=== PATIENT | male | born 1930 | race Caucasian/White ===

== ENCOUNTER 2016-04-02 15:20 | Inpatient (IN) | payer OTHER, BC ==
[~2016-04-02] VITALS: Ht 177.8 cm; Wt 77.1 kg
[~2016-04-02 15:20] MED LIST: EPLE50TA3 PO; GLIP10TA10 PO; IBUP600T44 PO; LEVO75TA PO; LISI10TA PO; SITA100T3 PO
[2016-04-02] MEDS ORDERED: LSX20 PO (15:56)
[2016-04-02] MEDS ORDERED: VNTHFA/IN PO (15:56)
[2016-04-02] MEDS ORDERED: MIRA100T PO (15:56)
[2016-04-02] MEDS ORDERED: MISCCAP80 PO (15:56)
[2016-04-02] MEDS ORDERED: SENNTAB23 PO (15:56)
[2016-04-02] MEDS ORDERED: TAPE50TA PO (15:56)
[2016-04-02] MEDS ORDERED: GLC500 PO (15:56)
[2016-04-02] MEDS ORDERED: ASPI81TA28 PO (15:56)
[2016-04-02 16:19] LABS: BASO % 0.3 %; BASO ABS # 0.04 K/uL (0-0.2); COMPLETE YES; EOS % 0.9 %; HEMATOCRIT 44.3 % (42-52); IG% 0.4 %; LYMPH % 14.5 %; LYMPH ABS # 1.69 K/uL (1.2-3.4); MEAN CELL VOLUME 95.5 fL (80-100); MEAN CORPUSCULAR HEMOGLOBIN 31.7 pg (25-34); MEAN CORPUSCULAR HGB CONC 33.2 g/dl (32-36); MEAN PLATELET VOLUME 10.3 fL (7.4-10.4); MONO % 10.8 %; NEUT % 73.1 %; PLATELET COUNT 349 K/uL (130-400); RED BLOOD COUNT 4.64 M/uL (4.7-6.1); WHITE BLOOD COUNT 11.66 K/uL (4.8-10.8)
--- NOTE | 2016-04-02 16:20 | DIAGNOSTIC IMAGING REPORT ---
CHEST ONE VIEW PORTABLE CLINICAL HISTORY: Shortness of breath, pneumonia, weakness. COMPARISON STUDY: No previous studies for comparison. FINDINGS: The heart is mildly enlarged. There is diffuse coarsening of interstitial markings with septal lines consistent with mild interstitial edema. There is a right perihilar opacity. This could be atelectatic inflammatory or neoplastic. Clinical and radiographic follow-up is recommended. There are advanced arthritic changes in the right shoulder.[ IMPRESSION: 1. Cardiomegaly and radiographic evidence of congestive failure 2. Abnormal increased density of the right hilum. This could be atelectatic, an inflammatory or neoplastic. Clinical and radiographic follow-up is recommended. Electronically signed by: Sunil Preciado M.D. 04/02/2016 4:18 PM
[2016-04-02 16:28] LABS: BUN/CREATININE RATIO 13.8 (10-20); CALCIUM 8.8 mg/dl (8.5-10.1); CREATININE 0.98 mg/dl (0.60-1.40); MAGNESIUM 1.7 mg/dl (1.8-2.4); POTASSIUM 4.3 mmol/L (3.5-5.1)
[2016-04-02] MEDS ORDERED: ACETAMINOPHEN 500 MG TAB PO STA (16:33)
[2016-04-02] MEDS ORDERED: OPTIRAY 320 IV PRN (16:45)
[2016-04-02 16:47] LABS: CKMB/CK RATIO 2.7 (0-3.0)
[2016-04-02 16:55] LABS: C-REACTIVE PROTEIN 3.45 mg/dl (0-0.29)
[2016-04-02] MEDS ORDERED: PIPERACILLIN/TAZOBACTAM 4.5 GM/100ML D5W IV STA (17:52)
--- NOTE | 2016-04-02 17:55 | DIAGNOSTIC IMAGING REPORT ---
CT ANGIOGRAM OF THE CHEST CLINICAL HISTORY: Chest pain, shortness of breath. Abnormal chest x-ray. Possible pulmonary embolism. COMPARISON STUDY: Chest x-ray dated 04/02/2016 TECHNIQUE: Following the IV administration of 92 mL of Optiray-320, CT angiogram of the thorax was performed from the thoracic inlet to the lung bases utilizing the pulmonary embolus protocol. Images are reviewed in the axial, sagittal, and coronal planes. IV contrast was administered without complication. MIP imaging was performed. CT DOSE: 642.89 mGy.cm FINDINGS: There is cholelithiasis. There are mildly enlarged mediastinal lymph nodes. Hilar lymph nodes are the upper limits of normal in size. There is no axillary lymphadenopathy. There was no evidence of thoracic aortic dilatation. Heart is enlarged. There are coronary artery calcifications. The examination is limited due to respiratory motion artifact. There are no central pulmonary artery filling defects to indicate acute emboli.. There are small bilateral pleural effusions There is pulmonary emphysema. There are multifocal nodular airspace opacities, statistically representing a multifocal pneumonia. Imaging subsequent to antibiotic therapy is recommended. There are advanced arthritic changes within the shoulders right greater than left IMPRESSION: 1. Technically limited study secondary to motion artifact 2. No central pulmonary emboli identified 3. Multifocal bilateral nodular airspace opacities, likely infectious/inflammatory. Given the peripheral nature of the pulmonary abnormalities, the sequela of septic emboli cannot be excluded with certainty. Short-term Imaging follow-up is recommended 4. Cholelithiasis 5. Small bilateral pleural effusions 6. Mild mediastinal lymphadenopathy Electronically signed by: Sunil Preciado M.D. 04/02/2016 5:53 PM
[2016-04-02] MEDS ORDERED: SODIUM CHLORIDE 0.9% 500ML 500 ML IV STA (17:58)
[2016-04-02] MEDS ORDERED: VANCOMYCIN 1GM/270ML NSS IV STA (18:07)
--- NOTE | 2016-04-02 18:37 | EMERGENCY ROOM VISIT NOTE ---
History Report prepared by Cesilia: Shashank Amaro Under the Supervision of: Dr. Oneal Epps M.D. First contact with patient: 15:41 Chief Complaint: RESPIRATORY PROBLEMS Stated Complaint: PNEUMONIA,WEAKNESS, VERY SICK Nursing Triage Summary: Short of breath on movement, recently diagnosed at [facility] with pneumonia and had a course of ABX with no improvement per daughter. Pt c/o back pain, but states it is a chronic pain. Denies CP. History of Present Illness The patient is a 85 year old male who presents to the Emergency Room with complaints of constant generalized weakness beginning last week. He has associated shortness of breath and legs swelling. He denies any headaches, passing out, chest pain, abdominal pain, or vomiting. The patient was seen for similar symptoms in the [place] ED recently, and was found to have pneumonia by x-ray. He was placed on antibiotics for five days. He was then seen by his guide dog trainer two days ago, and is now scheduled to have an echocardiogram in two weeks. The patient was started on Lasix at this time, but nothing has improved his symptoms. He is not on any blood thinners. He states that his Access Clerk thought he may have CHF. Source of History: patient Onset: Last week Position: other (generalized) Quality: other (weakness) Timing: constant Associated Symptoms: + SOB, No abdominal pain, No chest pain, No headache, No vomiting Note: The patient has associated leg swelling. He denies passing out. Review of Systems See HPI for pertinent positives & negatives. A total of 10 systems reviewed and were otherwise negative. Past Medical & Surgical Medical Problems: (1) Diabetes Family History Cancer Diabetes mellitus Heart disease Social History Smoking Status: Former Smoker Alcohol Use: none Drug Use: none Housing Status: lives alone Occupation Status: retired Current/Historical Medications Scheduled Aspirin (Aspirin Ec), 81 MG PO DAILY Furosemide (Furosemide), 20 MG PO DAILY Glipizide (Glipizide), 10 MG PO BID Ibuprofen (Motrin), 300 MG PO DAILY Levothyroxine Sodium (Synthroid), 75 MCG PO DAILY Lisinopril (Prinivil), 10 MG PO DAILY Metformin HCl (Metformin HCl), 500 MG PO BID Probiotic Product (Probiotic), 1 CAP PO BID Tapentadol Hcl (Nucynta), 50 MG PO DAILY Scheduled PRN Albuterol Hfa (Ventolin Hfa), 2 PUFFS PO Q4 PRN for SOB/Wheezing Sennosides-Docusate Sodium (Stool Softener), 1 TAB PO DAILY PRN for Constipation Allergies Coded Allergies: No Known Allergies (Unverified , 04/02/16) Physical Exam Vital Signs Date Time Temp Pulse Resp B/P Pulse Ox O2 Delivery O2 Flow Rate FiO2 04/02/16 17:23 172/105 95 Room Air 04/02/16 16:19 132 04/02/16 15:31 96 Room Air 04/02/16 15:28 37.4 85 22 153/99 96 Room Air Physical Exam GENERAL: Patient is ill appearing and in moderate distress. HEENT: No acute trauma, normocephalic atraumatic, mucous membranes moist, no nasal congestion, no scleral icterus. NECK: No stridor, no adenopathy, no meningismus, trachea is midline. LUNGS: Dyspneic, Diffuse crackles in all lung ervin. HEART: Regular rate and rhythm. No murmurs, rubs, gallops appreciated. ABDOMEN: Soft, nontender, bowel sounds positive, no masses appreciated, no peritonitis. BACK: No midline tenderness, no CVA tenderness EXTREMITIES: Normal motion all extremities, no cyanosis. Edema noted to the bilateral lower ankles. NEUROLOGIC: Alert and oriented, no acute motor or sensory deficits, no focal weakness, cranial nerves grossly intact. SKIN: No rash, no jaundice, no diaphoresis. Medical Decision & Procedures ER Provider Diagnostic Interpretation: X ray results and stated below per my interpretation and radiologist interpretation. Other radiology results and stated below per my review and radiologist interpretation: CHEST ONE VIEW PORTABLE FINDINGS: The heart is mildly enlarged. There is diffuse coarsening of interstitial markings with septal lines consistent with mild interstitial edema. There is a right perihilar opacity. This could be atelectatic inflammatory or neoplastic. Clinical and radiographic follow-up is recommended. There are advanced arthritic changes in the right shoulder.[ IMPRESSION: 1. Cardiomegaly and radiographic evidence of congestive failure 2. Abnormal increased density of the right hilum. This could be atelectatic, an inflammatory or neoplastic. Clinical and radiographic follow-up is recommended. Electronically signed by: Sunil Preciado M.D. CT ANGIOGRAM OF THE CHEST FINDINGS: There is cholelithiasis. There are mildly enlarged mediastinal lymph nodes. Hilar lymph nodes are the upper limits of normal in size. There is no axillary lymphadenopathy. There was no evidence of thoracic aortic dilatation. Heart is enlarged. There are coronary artery calcifications. The examination is limited due to respiratory motion artifact. There are no central pulmonary artery filling defects to indicate acute emboli.. There are small bilateral pleural effusions There is pulmonary emphysema. There are multifocal nodular airspace opacities, statistically representing a multifocal pneumonia. Imaging subsequent to antibiotic therapy is recommended. There are advanced arthritic changes within the shoulders right greater than left IMPRESSION: 1. Technically limited study secondary to motion artifact 2. No central pulmonary emboli identified 3. Multifocal bilateral nodular airspace opacities, likely infectious/inflammatory. Given the peripheral nature of the pulmonary abnormalities, the sequela of septic emboli cannot be excluded with certainty. Short-term Imaging follow-up is recommended 4. Cholelithiasis 5. Small bilateral pleural effusions 6. Mild mediastinal lymphadenopathy Electronically signed by: Sunil Preciado M.D. Laboratory Results 04/02/16 16:00 Red Blood Count 4.64, Mean Corpuscular Volume 95.5, Mean Corpuscular Hemoglobin 31.7, Mean Corpuscular Hemoglobin Concent 33.2, Mean Platelet Volume 10.3, Neutrophils (%) (Auto) 73.1, Lymphocytes (%) (Auto) 14.5, Monocytes (%) (Auto) 10.8, Eosinophils (%) (Auto) 0.9, Basophils (%) (Auto) 0.3, Neutrophils # (Auto ) 8.52, Lymphocytes # (Auto) 1.69, Monocytes # (Auto) 1.26, Eosinophils # (Auto ) 0.10, Basophils # (Auto) 0.04 04/02/16 16:00 Test 04/02/16 16:00 04/02/16 16:44 White Blood Count 11.66 K/uL (4.8-10.8) Red Blood Count 4.64 M/uL (4.7-6.1) Hemoglobin 14.7 g/dL (14.0-18.0) Hematocrit 44.3 % (42-52) Mean Corpuscular Volume 95.5 fL (80-100) Mean Corpuscular Hemoglobin 31.7 pg (25-34) Mean Corpuscular Hemoglobin Concent 33.2 g/dl (32-36) Platelet Count 349 K/uL (130-400) Mean Platelet Volume 10.3 fL (7.4-10.4) Neutrophils (%) (Auto) 73.1 % Lymphocytes (%) (Auto) 14.5 % Monocytes (%) (Auto) 10.8 % Eosinophils (%) (Auto) 0.9 % Basophils (%) (Auto) 0.3 % Neutrophils # (Auto) 8.52 K/uL (1.4-6.5) Lymphocytes # (Auto) 1.69 K/uL (1.2-3.4) Monocytes # (Auto) 1.26 K/uL (0.11-0.59) Eosinophils # (Auto) 0.10 K/uL (0-0.5) Basophils # (Auto) 0.04 K/uL (0-0.2) RDW Standard Deviation 48.6 fL (36.4-46.3) RDW Coefficient of Variation 13.9 % (11.5-14.5) Immature Granulocyte % (Auto) 0.4 % Immature Granulocyte # (Auto) 0.05 K/uL (0.00-0.02) Anion Gap 10.0 mmol/L (3-11) Est Creatinine Clear Calc Drug Dose 55.9 ml/min Estimated GFR () 80.6 Estimated GFR (Non- 69.5 BUN/Creatinine Ratio 13.8 (10-20) Calcium Level 8.8 mg/dl (8.5-10.1) Magnesium Level 1.7 mg/dl (1.8-2.4) Total Creatine Kinase 98 U/L (39-308) Creatine Kinase MB 2.6 ng/ml (0.5-3.6) Creatine Kinase MB Ratio 2.7 (0-3.0) Troponin I 0.122 ng/ml (0-0.045) C-Reactive Protein 3.45 mg/dl (0-0.29) Pro-B-Type Natriuretic Peptide 8962 pg/ml (0-1800) Bedside Lactic Acid Venous 1.45 mmol/L (0.90-1.70) Laboratory results as reviewed by me. Medications Administered Medications (Trade) Dose Ordered Sig/Ricky Route Start Time Stop Time Status Last Admin Dose Admin Acetaminophen (Tylenol Tab) 1,000 mg NOW STAT PO 04/02/16 16:33 04/02/16 16:34 DC 04/02/16 16:33 1,000 MG Piperacillin Sod/ Tazobactam Sod 4.5 gm 4.5 gm NOW STAT IV 04/02/16 17:52 04/02/16 17:54 DC 04/02/16 18:20 4.5 GM Sodium Chloride (Nss 500ml) 500 ml @ 999 mls/hr Q31M STAT IV 04/02/16 17:58 04/02/16 18:28 DC 04/02/16 18:20 999 MLS/HR Vancomycin HCl (Vancomycin 1gm/ 270ml Nss) 1 gm NOW STAT IV 04/02/16 18:07 04/02/16 18:08 DC 04/02/16 18:47 1 GM ECG Indication: SOB/dyspnea Rate (beats per minute): 131 Rhythm: sinus tachycardia Findings: PAC, ST depression (Non-specific) ED Course 1541: The patient was evaluated in room B2. A complete history and physical exam was performed. 1633: Ordered Tylenol Tab 1000 mg PO. 1752: Ordered Zosyn 4.5 gm IV. 1758: Ordered NSS 500 mL @ 999 mL/hr IV. 1807: I reassessed the patient. He is feeling better. Ordered Vancomycin HCl 1 gm IV. 1815: Upon reevaluation, the patient is resting comfortably. Discussed results and treatment plan with the patient. He verbalized understanding and agreement with the treatment plan. The patient will be evaluated for further management. 1900: I checked in on the patient. His heart rate is down to the 110's. Dr. Flores is at bedside. Medical Decision Differential: Sepsis, Infectious (UTI/Pneumonia/Meningitis/etc), Metabolic/ Electrolyte Abnormality, Cardiac, Hepatic, Endocrine, Toxicologic, Neurologic, amongst other pathologies entertained. 85 yr old male brought in with daughter for evaluation of SOB. Seems like there has been quite some focus on CHF being cause of shob and leg swelling, though did have round of Levaquin over last week. Did not improve with this and has continued to become more dyspneic and weak. Initial eval patient with normal HR though breathing issues. Agree with fluid overload but then patient became tachycardic and found to be febrile. Given Tylenol and sent to CT as quite abnormal CXR. CT with likely bilateral infiltrates. On return still somewhat tachycardic thus tried fluid challenge with knowledge that if HR may worsen SHOB. 500ml bolus given and he did have improvement in HR to 110s. Disussed with hospitalist who will continue gentle fluid resus as inpatient as unclear his EF. I did opt to give broad spectrum abx as already failed levaquin. Furthermore he has elevated Trop which is more likely sepsis related though MN or acute CHF will need to be ruled out. Consults Time Called: 1755 Consulting Physician: Dr. Mark Gotti Returned Call: [phone] Discussed the patient's case. The patient will be evaluated for further treatment and disposition. Impression Primary Impression: Sepsis Additional Impressions: Pneumonia, Heart failure, Elevated troponin Critical Care I have personally spent greater than 35 minutes of critical care time in the direct management of this patient. This was a life/limb threatening event. This includes time spent evaluating patient, direct bedside care, chart review, placing orders, interpretation of diagnostic studies, discussion with consultants, patient, and family members, as well as other required patient management activities. This 35 minutes is in excess of all separately billable procedures. Scribe Attestation The scribe's documentation has been prepared under my direction and personally reviewed by me in its entirety. I confirm that the note above accurately reflects all work, treatment, procedures, and medical decision making performed by me. Departure Information Dispostion Being Evaluated By Hospitalist Referrals Parminder Nava M.D. (PCP) Patient Instructions A Signature Page, My [facility]
[2016-04-02] MEDS ORDERED: SODIUM CHLORIDE 0.9% 1000ML 1,000 ML IV SCH (19:22)
[2016-04-02] MEDS ORDERED: GLUCAGON FOR INJ 1 MG VIAL SQ PRN (19:30)
[2016-04-02] MEDS ORDERED: NITROGLYCERIN 0.4 MG SL PER TAB CHARGE SL PRN (19:30)
[2016-04-02] MEDS ORDERED: DEXTROSE 50% 50 ML SYR IV PRN (19:30)
[2016-04-02] MEDS ORDERED: MoRPHine SULFATE 2 MG/ML CARP IV PRN (19:30)
[2016-04-02] MEDS ORDERED: GLUCOSE 10 TABS/TUBE PO PRN (19:30)
[2016-04-02] MEDS ORDERED: ONDANSETRON INJ 2 MG/ML 2 ML VIAL IV PRN (19:30)
[2016-04-02] MEDS ORDERED: GLUCOSE 40% GEL 15 GM TUBE PO PRN (19:30)
[2016-04-02] MEDS ORDERED: DC ALL PREVIOUSLY ORDERED DIABETES MEDS ONE (19:30)
[2016-04-02] MEDS ORDERED: PNEUMOCOCCAL POLYSACCHARIDES 25 MCG/0.5 ML VIAL/SYR IM. ONE (19:45)
[2016-04-02] MEDS ORDERED: INFLUENZA VIRUS QUAD VACCINE 0.5 ML SYR IM. ONE (19:45)
[2016-04-02 20:14] LABS: INR 1.2 (0.9-1.1); PROTHROMBIN TIME (PATIENT) 12.7 SECONDS (9.0-12.0)
[2016-04-02] MEDS ORDERED: SODIUM CHLORIDE 0.9% 500ML 500 ML IV SCH (20:15)
--- NOTE | 2016-04-02 20:16 | History and Physical ---
History & Physical Date & Time of Service: Apr 02, 2016 at 19:48 Chief Complaint: Pneumonia,Weakness, Very Sick Primary Care Physician: Parminder Nava M.D. History of Present Illness Source: patient 85 yo M presented to the ER with complaints of shortness of breath and decreased exercise tolerance for the last few months, worse in the last week. Specifically, he has not been able to climb his basement stairs or walk far in the grocery store without stopping to catch his breath. ROS reveals coughing, + orthopnea and +PND and recent acute feet swelling. He denies headache, nausea, abdominal pain, vomiting, sore throat, recent travel, diarrhea, fever, chills. He states that his granddaughter was sick over the holidays. He was seen at [facility] a week ago for this and was told he had an elevated troponin but that this was nothing to worry about. He was then seen by a Cardiology PA with [facility] who started him on a small dose of Lasix, which he has taken for the past three days, and ordered an TTE and an EKG. These records are not available to me to verify results. Past Medical/Surgical History Medical Problems: (1) Abdominal aortic aneurysm (AAA) 3.0 cm to 5.5 cm in diameter in male Status: Chronic (2) Bladder cancer Status: Chronic (3) Chronic back pain Status: Chronic (4) Chronic lower back pain Status: Chronic (5) Diabetes Status: Chronic (6) Diabetic retinopathy Status: Chronic (7) Hypertension Status: Chronic (8) Hypothyroidism Status: Chronic (9) Osteoarthritis, shoulder Status: Chronic (10) Prostate cancer Status: Chronic Family History Cancer Diabetes mellitus Heart disease Social History Smoking Status: Former Smoker Alcohol Use: socially Drug Use: none Marital Status: other Housing status: lives alone Occupational Status: retired Immunizations History of Influenza Vaccine: Unknown History of Tetanus Vaccine?: Unknown History of Pneumococcal: Unknown History of Hepatitis B Vaccine: Unknown Multi-Drug Resistant Organisms History of MDRO: No Allergies Coded Allergies: No Known Allergies (Unverified , 04/02/16) Home Medications Scheduled Aspirin (Aspirin Ec), 81 MG PO DAILY Furosemide (Furosemide), 20 MG PO DAILY Glipizide (Glipizide), 10 MG PO BID Ibuprofen (Motrin), 300 MG PO DAILY Levothyroxine Sodium (Synthroid), 75 MCG PO DAILY Lisinopril (Prinivil), 10 MG PO DAILY Metformin HCl (Metformin HCl), 500 MG PO BID Probiotic Product (Probiotic), 1 CAP PO BID Tapentadol Hcl (Nucynta), 50 MG PO DAILY Scheduled PRN Albuterol Hfa (Ventolin Hfa), 2 PUFFS PO Q4 PRN for SOB/Wheezing Sennosides-Docusate Sodium (Stool Softener), 1 TAB PO DAILY PRN for Constipation Review of Systems Constitutional: No chills, No fever, No sweats Eyes: No problem reported ENT: + nasal symptoms (runny nose last 24 hours), No sore throat Respiratory: + cough, + dyspnea on exertion, No wheezing Cardiovascular: + PND, + edema, + orthopnea, No chest pain Abdomen: + constipation, No diarrhea, No nausea, No pain, No vomiting Musculoskeletal: + joint pain (shoulders/back-chronic) Genitourinary - Male: + urinary incontinence Integumentary: No problem reported Physical Exam Vital Signs Date Time Temp Pulse Resp B/P Pulse Ox O2 Delivery O2 Flow Rate FiO2 04/02/16 17:23 172/105 95 Room Air 04/02/16 16:19 132 04/02/16 15:31 96 Room Air 04/02/16 15:28 37.4 85 22 153/99 96 Room Air GEN: WNWD, in no acute distress, no conversational dyspnea and not working to breathe, alert and appropriate HEENT: NC/AT, PERRL, normal sclerae NECK: no JVD, trachea midline CARDIO: tachy, S1/2 heard without m/g/r LUNGS: diffuse sparse rhonchi throughout, worse at bases, no wheezing or rales, good diaphragmatic excursion ABD: soft, non-tender, non-distended, no rebound or guarding, +BS EXTREMITY: RP and DP palpable 2+ bilat, 2+ pitting edema in bilateral extremities to lower carr, extremities are warm and well-perfused NEURO: CN 2-12 grossly intact, sensation intact throughout MUSC: 5/5 strength throughout, no gross focal deficits SKIN: warm and dry Diagnostics Laboratory Results Results Past 24 Hours Test 04/02/16 16:00 04/02/16 16:44 04/02/16 19:34 Range/Units White Blood Count 11.66 4.8-10.8 K/uL Red Blood Count 4.64 4.7-6.1 M/uL Hemoglobin 14.7 14.0-18.0 g/dL Hematocrit 44.3 42-52 % Mean Corpuscular Volume 95.5 80-100 fL Mean Corpuscular Hemoglobin 31.7 25-34 pg Mean Corpuscular Hemoglobin Concent 33.2 32-36 g/dl Platelet Count 349 130-400 K/uL Mean Platelet Volume 10.3 7.4-10.4 fL Neutrophils (%) (Auto) 73.1 % Lymphocytes (%) (Auto) 14.5 % Monocytes (%) (Auto) 10.8 % Eosinophils (%) (Auto) 0.9 % Basophils (%) (Auto) 0.3 % Neutrophils # (Auto) 8.52 1.4-6.5 K/uL Lymphocytes # (Auto) 1.69 1.2-3.4 K/uL Monocytes # (Auto) 1.26 0.11-0.59 K/uL Eosinophils # (Auto) 0.10 0-0.5 K/uL Basophils # (Auto) 0.04 0-0.2 K/uL RDW Standard Deviation 48.6 36.4-46.3 fL RDW Coefficient of Variation 13.9 11.5-14.5 % Immature Granulocyte % (Auto) 0.4 % Immature Granulocyte # (Auto) 0.05 0.00-0.02 K/uL Sodium Level 138 136-145 mmol/L Potassium Level 4.3 3.5-5.1 mmol/L Chloride Level 98 98-107 mmol/L Carbon Dioxide Level 30 21-32 mmol/L Anion Gap 10.0 3-11 mmol/L Blood Urea Nitrogen 14 7-18 mg/dl Creatinine 0.98 0.60-1.40 mg/dl Est Creatinine Clear Calc Drug Dose 55.9 ml/min Estimated GFR () 80.6 Estimated GFR (Non- 69.5 BUN/Creatinine Ratio 13.8 10-20 Random Glucose 140 70-99 mg/dl Calcium Level 8.8 8.5-10.1 mg/dl Magnesium Level 1.7 1.8-2.4 mg/dl Total Creatine Kinase 98 39-308 U/L Creatine Kinase MB 2.6 0.5-3.6 ng/ml Creatine Kinase MB Ratio 2.7 0-3.0 Troponin I 0.122 0-0.045 ng/ml C-Reactive Protein 3.45 0-0.29 mg/dl Pro-B-Type Natriuretic Peptide 8962 0-1800 pg/ml Bedside Lactic Acid Venous 1.45 0.90-1.70 mmol/L Microbiology Results 04/02/16 Blood Culture, Received Pending 04/02/16 Blood Culture, Received Pending Diagnostic Radiology CXR PORT: 1. Cardiomegaly and radiographic evidence of congestive failure 2. Abnormal increased density of the right hilum. This could be atelectatic, an inflammatory or neoplastic. Clinical and radiographic follow-up is recommended. CTA CHEST: 1. Technically limited study secondary to motion artifact 2. No central pulmonary emboli identified 3. Multifocal bilateral nodular airspace opacities, likely infectious/inflammatory. Given the peripheral nature of the pulmonary abnormalities, the sequela of septic emboli cannot be excluded with certainty. Short-term Imaging follow-up is recommended 4. Cholelithiasis 5. Small bilateral pleural effusions 6. Mild mediastinal lymphadenopathy EKG ST 131, no ST changes Impression Assessment and Plan 85 yo M with hypertension and no known heart disease presents to the ER with sepsis 2/2 pneumonia 1. Sepsis 2/2 pneumonia-tachy, elev WBC, febrile in ER with multifocal pneumonia in chest. HR improved with IVF, no elevation in lactate. Pt is not hypoxic and is not working to breathe. He is mentating well. Empiric Vanc/ Zosyn started with blood cultures pending. I added UA/UCx, procalcitonin to this. Interesting reading on CT with nodular airspace opacities that can be septic emboli on the differential. No leg pain but also has acute lower extremity edema. Also, he has no obvious murmur or evidence of endocarditis on exam including no Janeway lesions or Osler nodes. Will order TTE with contrast and bilateral venous dopplers to rule out clot. Recent sick contact includes daughter. Cont broad spectrum abx and start Tamiflu if flu is positive (along with droplet precautions), cont IVF resuscitation overnight as patient is clinically dry on exam. 2. Hypertroponemia-likely etiology is acute infection with no h/o known CAD, however, patient does have risk factors including age and hypertension. Trend enzymes overnight, cont ASA. EKG repeat in am. Monitor on telemetry. TTE ordered. 3. LE edema-acute onset in the last few days. Likely related to acute illness, however, will rule out bilateral DVT and this may be related to some component of right heart failure. Without JVD, abdominal swelling present, however, this is low on my differential at this time. TTE in am. 4. Hypertension-cont lisinopril at home dose 10mg 5. 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 Appreciate glycemic pharmacist assistance with management to goal sugars 6. Chronic back pain 2/2 known degenerative disease-cont daily Nucynta at 1700 7. Hypothyroidism-cont home Synthroid at 75mcg PO daily 8. chronic constipation-Miralax daily and Ducolax supp PRN ordered. 9. Hypomagnesemia-replace 2gm IV now and repeat in am. Nutrition-ADA diet DVT proph-[place] 40 Full code Dispo-to telemetry floor. DC planning: Lives alone-PT/OT to assess abilities. Appreciate healthcare social worker evaluation to ensure safe to return home at discharge. Diana Flores DO [facility] Hospitalist Level of Care Telemetry Advanced Directives Existing Advance Directive: Yes Resuscitation Status FULL RESUSCITATION VTE Prophylaxis VTE Risk Assessment Done? Y/N: Yes Risk Level: Moderate Given or contraindicated: Enoxaparin (Lovenox)SQ Social Service Consult >80 yr.& Lives Alone
[2016-04-02] MEDS ORDERED: PHARMACY GLYCEMIC MGMT CONSULT PRN (20:22)
[2016-04-02] MEDS ORDERED: PIPERACILL/TAZOBAC CONSULT ACTIVE PRN (20:30)
[2016-04-02] MEDS ORDERED: VANCOMYCIN CONSULT ACTIVE PRN (20:30)
[2016-04-02] MEDS ORDERED: INSULIN GLARGINE SOLOSTAR 100 UNITS/ML 3 ML PEN SC SCH (21:00)
[2016-04-02 21:20] VITALS: BP 124/65; PULSE 116; TEMP 37; O2SAT 91; Ht 177.8 cm; Wt 77.1 kg
--- NOTE | 2016-04-02 21:24 | DIAGNOSTIC IMAGING REPORT ---
ULTRASOUND VENOUS DOPPLER LWR EXT BILA CLINICAL HISTORY: Leg swelling. POSSIBLE PULMONARY EMBOLISM COMPARISON STUDY: No previous studies for comparison. FINDINGS: Real-time and color flow Doppler imaging were performed. Flow was seen within the femoral, popliteal and calf veins with no intraluminal thrombus demonstrated. The saphenous vein is patent. The venous waveforms demonstrate prominent pulsatility. This raises the possibility of elevated right heart pressures. IMPRESSION: No evidence of lower extremity DVT. Electronically signed by: Sunil Preciado M.D. 04/02/2016 9:22 PM
--- NOTE | 2016-04-02 21:27 | Pharmacy Progress Note ---
Pharmacy Antibiotic Consult Date of Service: Apr 02, 2016. Pharmacy Dosing Scope Pharmacy is consulted to initiate Vancomycin and Zosyn IV dosing therapy, order appropriate labs and adjust drug dose/frequency. Subjective The patient is a 85 year old male admitted on 04/02/16. Objective Height (Feet): 5 Height (Inches): 10.00 Weight (Kilograms): 78.200 Lab Results (24hrs): Laboratory Tests Test 04/02/16 16:00 BUN/Creatinine Ratio 13.8 Blood Urea Nitrogen 14 mg/dl Creatinine 0.98 mg/dl White Blood Count 11.66 K/uL Red Blood Count 4.64 M/uL Hemoglobin 14.7 g/dL Hematocrit 44.3 % Mean Corpuscular Volume 95.5 fL Mean Corpuscular Hemoglobin 31.7 pg Mean Corpuscular Hemoglobin Concent 33.2 g/dl Platelet Count 349 K/uL Mean Platelet Volume 10.3 fL Neutrophils (%) (Auto) 73.1 % Lymphocytes (%) (Auto) 14.5 % Monocytes (%) (Auto) 10.8 % Eosinophils (%) (Auto) 0.9 % Basophils (%) (Auto) 0.3 % Neutrophils # (Auto) 8.52 K/uL Lymphocytes # (Auto) 1.69 K/uL Monocytes # (Auto) 1.26 K/uL Eosinophils # (Auto) 0.10 K/uL Basophils # (Auto) 0.04 K/uL Micro Results: Blood cultures are pending. Urine culture to be collected. MRSA nasal swab also ordered, pending collection Assessment & Plan Assessment * 85 y/o M on empiric IV Vancomycin and Zosyn for sepsis secondary to pneumonia. MRSA nasal swab ordered to assist with possible de-escalation. * Baseline renal function is unclear, but most recent sCr = 0.98mg/dL with estimated CrCl ~56 mL/min. Estimated pharmacokinetic parameters: * Ke ~0.051/hr, T1/2 ~13.6 hrs, Vd ~0.7L/kg * Patient received Vancomycin 1000mg (~13mg/kg) IV x 1 in the ED as a loading dose. This is lower than the usual 25mg/kg loading dose, therefore will give a supplemental loading dose. Plan VANCOMYCIN * Give Vancomycin 950mg (~12mg/kg) IV x 1 as an additional loading dose to equal 25mg/kg load * Initiate Vancomycin 1100mg (~14mg/kg) IV q16 * Goal Vancomycin trough 15-20 mcg/mL * Trough level ordered for 04/04/16 @ 0530 (only prior to the 2nd dose and therefore not reflective of steady state, but would like to assess dosing regimen earlier due to patient's age and renal function) ZOSYN * Zosyn 4.5g IV x 1 given in the ED * Continue Zosyn 3.375g IV q8 (extended infusion over 4 hours) with CrCl >20 mL/ min Pharmacy will continue to follow and will adjust dose/frequency as necessary. Thank you
[2016-04-02 21:29] LABS: INFLUENZA A PCR Neg for Influ A (NEG)
[2016-04-02 21:30] LABS: INFLUENZA B PCR Neg for Influ B (NEG)
[2016-04-02] MEDS ORDERED: VANCOMYCIN INJ 950 MG in SODIUM CHLORIDE 0.9% 250ML 250 ML IV ONE (22:00)
[2016-04-02] MEDS ORDERED: INFLUENZA ADMINISTRATION CHARGE ONE (22:15)
[2016-04-02] MEDS ORDERED: PNEUMOCOCCAL ADMINISTRATION CHARGE ONE (22:15)
[2016-04-02] MEDS: MAGNESIUM SULFATE 1GM / D5W 1 GM in PREMIXED IN D5W 100 ML IV SCH (22:23)
[2016-04-02] MEDS: ENOXAPARIN 40 MG/0.4 ML SYR SC SCH (22:38)
[2016-04-02] MEDS: INSULIN ASPART 100 UNITS/ML 3 ML PEN SC SCH (22:38)
[2016-04-02 22:53] LABS: URINE APPEARANCE CLEAR (CLEAR); URINE BILIRUBIN NEG (NEG); URINE COLOR YELLOW; URINE NITRITE NEG (NEG); URINE PH 5.5 (4.5-7.5); URINE SPECIFIC GRAVITY > 1.045 (1.000-1.030); UROBILINOGEN NEG (NEG)
[2016-04-02 23:02] LABS: MANUAL MICROSCOPIC REQUIRED? NO; REVIEW REQ? NO
[2016-04-02 23:19] LABS: CKMB/CK RATIO 2.5 (0-3.0); PROSTATE SPECIFIC ANTIGEN 0.054 ng/ml (0.000-4.000)
[2016-04-02 23:38] VITALS: BP 131/70; PULSE 110; TEMP 36.8; O2SAT 93
[2016-04-03] VITALS (12 sets, daily range): BP systolic 100–144; BP diastolic 57–83; PULSE 88–129; TEMP 36.5–37.3; O2SAT 86–96
[2016-04-03] MEDS: MAGNESIUM SULFATE 1GM / D5W 1 GM in PREMIXED IN D5W 100 ML IV SCH (00:54)
[2016-04-03] MEDS: PIPERACILL/TAZOBAC IV 3.375 GM in DEXTROSE 5% 100ML 100 ML IV SCH ×3 (01:58→17:14)
[2016-04-03] MEDS ORDERED: LEVALBUTEROL/IPRATROPIUM NEB INH STA (02:55)
[2016-04-03] MEDS ORDERED: LEVALBUTEROL/IPRATROPIUM NEB INH PRN (03:00)
[2016-04-03] MEDS ORDERED: FUROSEMIDE INJ 40 MG in SYRINGE 0 ML IV STA (03:09)
[2016-04-03] MEDS ORDERED: LEVALBUTEROL 1.25MG/0.5ML NEB INH STA (03:11)
[2016-04-03] MEDS ORDERED: IPRATROPIUM BROMIDE NEB SOLN 0.02% 2.5 ML VIAL INH STA (03:11)
[2016-04-03] MEDS ORDERED: IPRATROPIUM BROMIDE NEB SOLN 0.02% 2.5 ML VIAL INH PRN (03:15)
[2016-04-03] MEDS ORDERED: LEVALBUTEROL 1.25MG/0.5ML NEB INH PRN (03:15)
[2016-04-03 03:29] LABS: BASO % 0.3 %; BASO ABS # 0.03 K/uL (0-0.2); COMPLETE YES; EOS % 1.3 %; HEMATOCRIT 43.8 % (42-52); IG% 0.3 %; LYMPH % 18.5 %; LYMPH ABS # 1.71 K/uL (1.2-3.4); MEAN CELL VOLUME 94.8 fL (80-100); MEAN CORPUSCULAR HEMOGLOBIN 31.2 pg (25-34); MEAN CORPUSCULAR HGB CONC 32.9 g/dl (32-36); MEAN PLATELET VOLUME 9.6 fL (7.4-10.4); MONO % 13.9 %; NEUT % 65.7 %; PLATELET COUNT 284 K/uL (130-400); RED BLOOD COUNT 4.62 M/uL (4.7-6.1); WHITE BLOOD COUNT 9.26 K/uL (4.8-10.8)
[2016-04-03 03:39] LABS: PARTIAL THROMBOPLASTIN RATIO 1.3
[2016-04-03 03:47] LABS: CALCIUM 8.2 mg/dl (8.5-10.1); CREATININE 0.93 mg/dl (0.60-1.40); MAGNESIUM 2.4 mg/dl (1.8-2.4); POTASSIUM 4.3 mmol/L (3.5-5.1)
[2016-04-03 03:52] LABS: ALB/GLOB RATIO 0.7 (0.9-2); CHOLESTEROL/HDL RATIO 2.5
[2016-04-03 04:00] LABS: ALLEN TEST POS (POS); ARTERIAL BLOOD GAS BASE EXCESS 1.1 mEq/L (-9-1.8); ARTERIAL BLOOD GAS HCO3 27 mmol/L (19-24); ARTERIAL BLOOD GAS PO2 58 mmHg (80-95); ARTERIAL BLOOD GAS pH 7.35 (7.35-7.45); O2 ADMINISTRATION 2 L O2
[2016-04-03] MEDS: LEVOTHYROXINE 75 MCG TAB PO SCH (05:29)
[2016-04-03] MEDS: INSULIN ASPART 100 UNITS/ML 3 ML PEN SC SCH ×4 (07:00→20:35)
[2016-04-03] MEDS: ASPIRIN 81 MG ECTAB PO SCH (08:25)
[2016-04-03] MEDS ORDERED: COUGH DROP (SUGAR FREE) LOZ 24 LOZ/1 BOX ONE (08:52)
--- NOTE | 2016-04-03 08:58 | DIAGNOSTIC IMAGING REPORT ---
SINGLE VIEW CHEST CLINICAL HISTORY: Hypoxia. FINDINGS: 2 AP, portable, upright chest radiographs are compared to chest x-ray and chest CT dated 04/02/2016. The heart is enlarged and there is atherosclerotic calcification of the thoracic aorta. The lungs appear hyperinflated and there is diffuse interstitial thickening. Emphysema is suspected. More focal airspace consolidation is again seen in the right middle lobe and at the left lung base. Small pleural effusions are identified. No pneumothorax is seen. The skeletal structures are osteopenic. Advanced arthritic changes present in the right shoulder. IMPRESSION: 1. Cardiomegaly and suspect emphysema. 2. Small pleural effusions and multifocal patchy airspace consolidation are similar in appearance to yesterday. Electronically signed by: George Feng M.D. 04/03/2016 8:56 AM
[2016-04-03] MEDS ORDERED: NURSING VERBAL MED ORDER ONE ×2 (09:00→11:15)
[2016-04-03] MEDS ORDERED: ASPIRIN 81 MG ECTAB PO SCH (09:00)
[2016-04-03] MEDS: LISINOPRIL 10 MG TAB PO SCH (09:07)
[2016-04-03] MEDS ORDERED: SODIUM CHLORIDE 0.9% 500ML 500 ML IV SCH (09:15)
[2016-04-03] MEDS ORDERED: COUGH DROP (SUGAR FREE) LOZ 24 LOZ/1 BOX PO PRN (09:15)
--- NOTE | 2016-04-03 10:26 | Progress Note ---
Medicine Progress Note Date & Time of Visit: Apr 03, 2016 at 10:14. Subjective 85 yo M with multilobar PNA -oxygenation status dropped to 86 on RA overnight -IVF were stopped and Lasix 40mg given around 0300 -2L NC in place with good oxygenation -reviewed ABG -Duonebs started and are helping patient -no BM overnight -tolerating breakfast this morning. Objective Last 8 Hrs Date Time Temp Pulse Resp B/P Pulse Ox O2 Delivery O2 Flow Rate FiO2 04/03/16 07:23 37.3 117 18 132/79 92 Nasal Cannula 2.0 04/03/16 04:08 36.5 123 20 144/83 91 Room Air 04/03/16 04:02 Nasal Cannula 2.0 04/03/16 03:51 129 16 91 Room Air 04/03/16 02:30 86 Nasal Cannula 2.0 Physical Exam: GEN: WNWD, in no acute distress, alert and appropriate, NC in place HEENT: NC/AT, normal sclerae CARDIO: tachy rate, S1/2 heard without m/g/r LUNGS: Rales throughout all lung ervin, good diaphragmatic excursion ABD: soft, non-tender, non-distended, no rebound or guarding EXTREMITY: RP and DP palpable 2+ bilat, no LE swelling or edema, extremities are warm and well-perfused NEURO: CN 2-12 grossly intact, no gross focal deficits. MUSC: moves around the bed easily, no gross focal deficits. SKIN: warm and dry Laboratory Results: Last 24 Hours Test 04/02/16 16:00 04/02/16 16:44 04/02/16 19:50 04/02/16 19:52 White Blood Count 11.66 K/uL Red Blood Count 4.64 M/uL Hemoglobin 14.7 g/dL Hematocrit 44.3 % Mean Corpuscular Volume 95.5 fL Mean Corpuscular Hemoglobin 31.7 pg Mean Corpuscular Hemoglobin Concent 33.2 g/dl Platelet Count 349 K/uL Mean Platelet Volume 10.3 fL Neutrophils (%) (Auto) 73.1 % Lymphocytes (%) (Auto) 14.5 % Monocytes (%) (Auto) 10.8 % Eosinophils (%) (Auto) 0.9 % Basophils (%) (Auto) 0.3 % Neutrophils # (Auto) 8.52 K/uL Lymphocytes # (Auto) 1.69 K/uL Monocytes # (Auto) 1.26 K/uL Eosinophils # (Auto) 0.10 K/uL Basophils # (Auto) 0.04 K/uL RDW Standard Deviation 48.6 fL RDW Coefficient of Variation 13.9 % Immature Granulocyte % (Auto) 0.4 % Immature Granulocyte # (Auto) 0.05 K/uL Sodium Level 138 mmol/L Potassium Level 4.3 mmol/L Chloride Level 98 mmol/L Carbon Dioxide Level 30 mmol/L Anion Gap 10.0 mmol/L Blood Urea Nitrogen 14 mg/dl Creatinine 0.98 mg/dl Est Creatinine Clear Calc Drug Dose 55.9 ml/min Estimated GFR () 80.6 Estimated GFR (Non- 69.5 BUN/Creatinine Ratio 13.8 Random Glucose 140 mg/dl Calcium Level 8.8 mg/dl Magnesium Level 1.7 mg/dl Total Creatine Kinase 98 U/L Creatine Kinase MB 2.6 ng/ml Creatine Kinase MB Ratio 2.7 Troponin I 0.122 ng/ml C-Reactive Protein 3.45 mg/dl Pro-B-Type Natriuretic Peptide 8962 pg/ml Procalcitonin < 0.05 ng/mL Bedside Lactic Acid Venous 1.45 mmol/L Influenza Type A (RT-PCR) Neg for Influ A Influenza Type B (RT-PCR) Neg for Influ B Prothrombin Time 12.7 SECONDS Prothromb Time International Ratio 1.2 Test 04/02/16 22:00 04/02/16 22:08 04/02/16 22:30 04/03/16 03:21 Total Creatine Kinase 103 U/L Creatine Kinase MB 2.6 ng/ml Creatine Kinase MB Ratio 2.5 Troponin I 0.210 ng/ml 0.203 ng/ml Prostate Specific Antigen 0.054 ng/ml Bedside Glucose 215 mg/dl Urine Color YELLOW Urine Appearance CLEAR Urine pH 5.5 Urine Specific [place] > 1.045 Urine Protein 2+ Urine Glucose (UA) NEG Urine Ketones NEG Urine Occult Blood 2+ Urine Nitrite NEG Urine Bilirubin NEG Urine Urobilinogen NEG Urine Leukocyte Esterase NEG Urine WBC (Auto) 1-5 /hpf Urine RBC (Auto) 10-30 /hpf Urine Hyaline Casts (Auto) 1-5 /lpf Urine Epithelial Cells (Auto) 5-10 /lpf Urine Bacteria (Auto) NEG White Blood Count 9.26 K/uL Red Blood Count 4.62 M/uL Hemoglobin 14.4 g/dL Hematocrit 43.8 % Mean Corpuscular Volume 94.8 fL Mean Corpuscular Hemoglobin 31.2 pg Mean Corpuscular Hemoglobin Concent 32.9 g/dl Platelet Count 284 K/uL Mean Platelet Volume 9.6 fL Neutrophils (%) (Auto) 65.7 % Lymphocytes (%) (Auto) 18.5 % Monocytes (%) (Auto) 13.9 % Eosinophils (%) (Auto) 1.3 % Basophils (%) (Auto) 0.3 % Neutrophils # (Auto) 6.08 K/uL Lymphocytes # (Auto) 1.71 K/uL Monocytes # (Auto) 1.29 K/uL Eosinophils # (Auto) 0.12 K/uL Basophils # (Auto) 0.03 K/uL RDW Standard Deviation 48.3 fL RDW Coefficient of Variation 14.0 % Immature Granulocyte % (Auto) 0.3 % Immature Granulocyte # (Auto) 0.03 K/uL Activated Partial Thromboplast Time 33.1 SECONDS Partial Thromboplastin Ratio 1.3 Sodium Level 137 mmol/L Potassium Level 4.3 mmol/L Chloride Level 101 mmol/L Carbon Dioxide Level 28 mmol/L Anion Gap 8.0 mmol/L Blood Urea Nitrogen 11 mg/dl Creatinine 0.93 mg/dl Est Creatinine Clear Calc Drug Dose 58.9 ml/min Estimated GFR () 85.9 Estimated GFR (Non- 74.1 BUN/Creatinine Ratio 12.0 Random Glucose 169 mg/dl Calcium Level 8.2 mg/dl Magnesium Level 2.4 mg/dl Total Bilirubin 0.4 mg/dl Aspartate Amino Transf (AST/SGOT) 59 U/L Alanine Aminotransferase (ALT/SGPT) 46 U/L Alkaline Phosphatase 74 U/L Total Protein 7.4 gm/dl Albumin 3.0 gm/dl Globulin 4.4 gm/dl Albumin/Globulin Ratio 0.7 Triglycerides Level 77 mg/dl Cholesterol Level 126 mg/dl HDL Cholesterol 51 mg/dl LDL Cholesterol, Calculated 60 mg/dl VLDL Cholesterol, Calculated 15 mg/dl Cholesterol/HDL Ratio 2.5 Test 04/03/16 03:45 04/03/16 06:45 Arterial Blood pH 7.35 Arterial Blood Partial Pressure CO2 50 mmHg Arterial Blood Partial Pressure O2 58 mmHg Arterial Blood HCO3 27 mmol/L Arterial Blood Oxygen Saturation 90.0 % Arterial Blood Base Excess 1.1 mEq/L Arterial Blood Gas Delivery 2 L O2 Evens Test POS Bedside Glucose 155 mg/dl Date/Time Source Procedure Growth Status 04/02/16 17:50 Blood Blood Culture Pending Received 04/02/16 16:40 Blood Blood Culture Pending Received 04/02/16 22:15 Nasal MRSA DNA Surveillance Screen - Final Specimen Negative for MRSA by DNA Probe Complete 04/02/16 22:30 Urine , Clean Catch Urine Culture Pending Received Assessment & Plan 85 yo M with hypertension and no known heart disease presents to the ER with sepsis 2/2 pneumonia 1. Sepsis 2/2 pneumonia-still tachy, however, fluids were stopped and Lasix given overnight. Pt is clinically hypovolemic and with initial fluids I think his pneumonia fluffed out more. Will cont with IVF and give 500cc bolus now and cont IVF until HR improves and he is keeping up on his hydration orally. TTE this morning-reading pending. WBC resolved, afebrile overnight, requiring 2L NC which is expected because of the improvement in hydration. He appears comfortable and is tolerating PO. He is mentating well. Cont Vanc/Zosyn with blood cultures pending. Interesting reading on CT with nodular airspace opacities that can be septic emboli on the differential. LE edema has resolved. DVT LE us was negative for blood clot. Also, he has no obvious murmur or evidence of endocarditis on exam including no [place] lesions or [place] nodes. TTE to assist with that today. Recent sick contact includes daughter. Cont current clinical course with reinitiation of IVF. 2. Hypertroponemia-likely etiology is acute infection with no h/o known CAD, however, patient does have risk factors including age and hypertension. Enzymes peaked and trending down but still mildly positive. Cont ASA. EKG reviewed this am. Cont telemetry. TTE-pending 3. LE edema-acute onset in the last few days. Likely related to acute illness and has resolved this morning. Pt only had Lasix a few hours ago. Also may be decreased from keeping legs elevated overnight. Heart failure very unlikely- TTE pending. 4. Hypertension-cont lisinopril at home dose 10mg 5. 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 Appreciate glycemic pharmacist assistance with management to goal sugars 6. Chronic back pain 2/2 known degenerative disease-cont daily Nucynta at 1700 7. Hypothyroidism-cont home Synthroid at 75mcg PO daily 8. chronic constipation-no BM overnight, nurse aware and initiating both of the following now. Miralax daily and Ducolax supp PRN ordered. 9. Hypomagnesemia-replace 2gm IV now and repeat in am. Nutrition-ADA diet DVT proph-[place] 40 Full code Dispo-to telemetry floor. DC planning: Lives alone-PT/OT to assess abilities. Appreciate social work assistant evaluation to ensure safe to return home at discharge. Daughter at bedside-discussed findings and plan with her today. All questions were answered. Diana Flores DO [facility] Hospitalist Current Inpatient Medications: Current Inpatient Medications Medications (Trade) Dose Ordered Sig/Ricyk Route Start Time Stop Time Status Last Admin Dose Admin Ioversol (Optiray 320) 125 ml UD PRN IV 04/02/16 16:45 04/06/16 16:44 Enoxaparin Sodium 40 mg 40 mg QPM SC 04/02/16 23:00 05/02/16 22:59 04/02/16 22:38 40 MG Sodium Chloride (Nss 1000ml) 1,000 ml @ 100 mls/hr Q10H IV 04/02/16 19:22 Future Hold 04/02/16 22:23 100 MLS/HR Acetaminophen (Tylenol Tab) 650 mg Q4H PRN PO 04/02/16 19:30 05/02/16 19:29 Ondansetron HCl (Zofran Inj) 4 mg Q6H PRN IV 04/02/16 19:30 05/02/16 19:29 Nitroglycerin (Nitrostat Tab) 0.4 mg UD PRN SL 04/02/16 19:30 05/02/16 19:29 Morphine Sulfate (MoRPHine SULFATE INJ) 2 mg Q30M PRN IV 04/02/16 19:30 04/16/16 19:29 Aspirin (Ecotrin Tab) 81 mg QAM PO 04/03/16 09:00 05/03/16 08:59 04/03/16 08:25 81 MG Polyethylene (Miralax Powder Packet) 17 gm DAILY PRN PO 04/02/16 19:30 05/02/16 19:29 Insulin Aspart (novoLOG ASPART) SLIDING SCALE If C... ACHS SC 04/02/16 21:00 05/02/16 20:59 04/03/16 07:00 5 UNITS Glucose (Glucose 40% Gel) 15-30 GRAMS 15 GRAMS... UD PRN PO 04/02/16 19:30 05/02/16 19:29 Glucose (Glucose Chew Tab) 4-8 Tablets 4 Tabl... UD PRN PO 04/02/16 19:30 05/02/16 19:29 Dextrose (Dextrose 50% 50ML Syringe) 25-50ML OF 50% DW IV FOR... UD PRN IV 04/02/16 19:30 05/02/16 19:29 Glucagon (Glucagon Inj) 1 mg UD PRN SQ 04/02/16 19:30 05/02/16 19:29 Miscellaneous Information 1 ea 1 ea UD PRN N/A 04/02/16 20:22 05/02/16 20:21 Vancomycin HCl 1100 mg/Sodium Chloride 272 ml @ 125 mls/hr Q16H IV 04/03/16 14:00 04/12/16 13:59 Piperacillin Sod/ Tazobactam Sod/ Dextrose (Zosyn Iv/D5 100ml) 115 ml @ 28.75 mls/ hr Q8H IV 04/03/16 00:00 04/12/16 00:00 04/03/16 08:25 28.75 MLS/HR Vancomycin HCl (Consult) 1 ea UD PRN N/A 04/02/16 20:30 05/02/16 20:29 Piperacillin Sod/ Tazobactam Sod (Consult) 1 ea UD PRN N/A 04/02/16 20:30 05/02/16 20:29 Levothyroxine Sodium (Synthroid Tab) 75 mcg DAILYBB PO 04/03/16 06:00 05/03/16 06:59 04/03/16 05:29 75 MCG Lisinopril (Zestril Tab) 10 mg DAILY PO 04/03/16 09:00 05/03/16 08:59 04/03/16 09:07 10 MG Tapentadol (Nucynta Tab) 50 mg DAILY PO 04/03/16 17:00 04/17/16 16:59 Ipratropium [place] (Atrovent 0.02% 0.5MG/2.5ML Neb) 0.5 mg Q4H PRN INH 04/03/16 03:15 05/03/16 03:14 Levalbuterol (Xopenex 1.25MG/ 0.5ML Neb) 1.25 mg Q4H PRN INH 04/03/16 03:15 05/03/16 03:14 Menthol 1 cooper 1 cooper PRN PRN PO 04/03/16 09:15 05/03/16 09:14 Sodium Chloride (Nss 500ml) 500 ml @ 250 mls/hr Q2H IV 04/03/16 09:15 04/03/16 11:14 04/03/16 09:15 250 MLS/HR
--- NOTE | 2016-04-03 11:12 | ECHOCARDIOGRAM REPORT ---
*NOTICE TO RECEIVING DEMOCRAT AGENCY This information is strictly Confidential and protected under [place] law. [place] law prohibits you from making any further disclosure of this information unless further disclosure is expressly permitted by the written consent of the person to whom it pertains or is authorized by law. A general authorization for the release of medical or other information is not sufficient for this purpose. Hospital accepts no responsibility if the information is made available to any other person, INCLUDING THE PATIENT. Interpretation Summary * Name: PRAVIN BURNS Study Date: 04/03/2016 10:28 AM BP: 144/83 mmHg * Patient Location: C.2T\S\S231\S\1 HR: 123 * : 1930 (M/d/yyyy) Gender: Male Height: 70 in * Age: 85 yrs Ethnicity: [place] Weight: 172 lb * Ordering Physician: Diana Flores * Referring Physician: Self, Referred * Performed By: Esthela Johnson RDCS * * Reason For Study: Dyspnea and new onset edema, + orthopnea and +PND * BSA: 2.0 m2 * -- Conclusions -- * Normal LV chamber size with mild concentric LVH. * Severely reduced LV systolic function with severe global hypokinesis, EF 25-30%. * Grade I diastolic dysfunction. * Aortic valve sclerosis moderate, without significant aortic valvular stenosis. * Moderate to severe mitral regurgitation. * Normal left atrial size. Procedure Details * A complete two-dimensional transthoracic echocardiogram was performed (2D, M-mode, Doppler and color flow Doppler). Left Ventricle * The left ventricle is normal in size. * There is mild concentric left ventricular hypertrophy. * Ejection Fraction = 25-30%. * Left ventricular systolic function is moderate to severely reduced. * There is moderate to severe global hypokinesis of the left ventricle. Right Ventricle * The right ventricular cavity size is normal (basal dimension <4.2 cm in right ventricular apical 4-chamber view). * The right ventricular systolic function is normal as assessed by tricuspid annular plane systolic excursion (TAPSE) (normal >1.5 cm). Atria * The left atrial size is normal. * Right atrial size is normal. * No ASD detected; PFO is not assessed. Mitral Valve * The mitral valve anatomy is normal. * There is no mitral valve stenosis. * There is moderate to severe mitral regurgitation. Tricuspid Valve * The tricuspid valve is normal in structure and function. Aortic Valve * The aortic valve is trileaflet. * Aortic valve sclerosis moderate, without significant aortic valvular stenosis. * There is no significant aortic regurgitation. Pulmonic Valve * The pulmonary valve is not well seen, but the Doppler examination is normal without significant regurgitation or stenosis. Great Vessels * The aortic root is normal size. Pericardium/Pleural * There is no pericardial effusion. Left Ventricular Diastolic Function * Grade I diastolic dysfunction, (abnormal relaxation pattern). MMode 2D Measurements and Calculations IVSd 1.1 cm IVSs 1.1 cm LVIDd 5.7 cm LVIDs 4.8 cm LVPWd 1.2 cm LVPWs 1.4 cm IVS/LVPW 0.92 FS 15.3 % EDV(Teich) 158.9 ml ESV(Teich) 108.2 ml EF(Teich) 31.9 % EDV(cubed) 183.4 ml ESV(cubed) 111.4 ml EF(cubed) 39.3 % % IVS thick -0.91 % % LVPW thick 11.2 % LV mass(C)d 279.6 grams LV mass(C)dI 142.8 grams/m\S\2 LV mass(C)s 230.5 grams LV mass(C)sI 117.7 grams/m\S\2 SV(Teich) 50.7 ml SI(Teich) 25.9 ml/m\S\2 SV(cubed) 72.0 ml SI(cubed) 36.8 ml/m\S\2 EPSS 1.7 cm Ao root diam 3.4 cm Ao root area 9.3 cm\S\2 ACS 0.87 cm LA dimension 3.7 cm LA/Ao 1.1 LVOT diam 1.9 cm LVOT area 2.7 cm\S\2 LVAd ap4 40.1 cm\S\2 LVLd ap4 9.2 cm EDV(MOD-sp4) 147.3 ml EDV(sp4-el) 147.6 ml LVAs ap4 33.0 cm\S\2 LVLs ap4 8.6 cm ESV(MOD-sp4) 109.6 ml ESV(sp4-el) 108.0 ml EF(MOD-sp4) 25.6 % EF(sp4-el) 26.8 % LVAd ap2 36.7 cm\S\2 LVLd ap2 9.2 cm EDV(MOD-sp2) 127.7 ml EDV(sp2-el) 124.1 ml LVAs ap2 28.1 cm\S\2 LVLs ap2 8.2 cm ESV(MOD-sp2) 84.3 ml ESV(sp2-el) 81.4 ml EF(MOD-sp2) 34.0 % EF(sp2-el) 34.4 % LVLd %diff -0.03 % EDV(MOD-bp) 137.3 ml LVLs %diff -4.02 % ESV(MOD-bp) 97.4 ml EF(MOD-bp) 29.1 % SV(MOD-sp4) 37.7 ml SI(MOD-sp4) 19.2 ml/m\S\2 SV(MOD-sp2) 43.4 ml SI(MOD-sp2) 22.2 ml/m\S\2 SV(MOD-bp) 39.9 ml SI(MOD-bp) 20.4 ml/m\S\2 SV(sp4-el) 39.6 ml SI(sp4-el) 20.2 ml/m\S\2 SV(sp2-el) 42.7 ml SI(sp2-el) 21.8 ml/m\S\2 Doppler Measurements and Calculations MV E max moe 110.4 cm/sec MV A max moe 152.6 cm/sec MV E/A 0.72 MV dec time 0.22 sec Ao V2 max 198.0 cm/sec Ao max PG 15.7 mmHg Ao max PG (full) 13.2 mmHg Ao V2 mean 128.9 cm/sec Ao mean PG 7.6 mmHg Ao mean PG (full) 6.4 mmHg Ao V2 VTI 31.6 cm BAR(I,A) 1.2 cm\S\2 BAR(I,D) 1.2 cm\S\2 BAR(V,A) 1.1 cm\S\2 BAR(V,D) 1.1 cm\S\2 LV V1 max PG 2.5 mmHg LV V1 mean PG 1.2 mmHg LV V1 max 78.9 cm/sec LV V1 mean 50.6 cm/sec LV V1 VTI 13.6 cm MR max moe 462.4 cm/sec MR max PG 85.5 mmHg MR mean moe 350.1 cm/sec MR mean PG 54.8 mmHg MR VTI 123.2 cm MR PISA 0.80 cm\S\2 MR PISA radius 0.36 cm SV(Ao) 293.5 ml SI(Ao) 149.9 ml/m\S\2 SV(LVOT) 36.8 ml SI(LVOT) 18.8 ml/m\S\2 PA V2 max 101.2 cm/sec PA max PG 4.1 mmHg PI max moe 207.2 cm/sec PI max PG 17.3 mmHg PI dec slope 397.9 cm/sec\S\2 PI P1/2t 152.5 msec TR max moe 247.8 cm/sec
[2016-04-03] MEDS ORDERED: HYDROCODONE/HOMATROPINE SYRUP 5MG/1.5MG 5ML UDP PO PRN (11:30)
[2016-04-03] MEDS: POLYETHYLENE (MIRALAX) 17 GM PACK PO PRN (11:41)
[2016-04-03] MEDS: ACETAMINOPHEN 325 MG TAB PO PRN (11:44)
[2016-04-03] MEDS: LIDODERM (LIDOCAINE) PATCH 5% TD SCH (11:45)
[2016-04-03] MEDS ORDERED: METOPROLOL SUCC 25MG EXT REL TAB PO ONE (11:47)
[2016-04-03] MEDS: VANCOMYCIN INJ 1,100 MG in SODIUM CHLORIDE 0.9% 250ML 250 ML IV SCH (14:42)
--- NOTE | 2016-04-03 14:58 | CARDIOLOGY CONSULTATION ---
DATE OF CONSULTATION: 04/03/2016 CONSULTATION REQUESTED BY: Dr. Flores. REASON FOR CONSULTATION: Newly discovered cardiomyopathy. HISTORY OF PRESENT ILLNESS: Mr. Trinh is a very pleasant 85-year-old gentleman who presented to [facility] Emergency Department on 04/02/2016 with a complaint of worsening shortness of breath, cough and general malaise. The patient is very hard of hearing. The majority of the history was obtained from his daughter. She states that approximately 2 weeks ago, the patient started to not feel well. He normally has significant back pain with decreased ambulation at baseline and ongoing bowel issues with offsetting diarrhea and constipation. However, approximately 2 weeks ago started not feeling well, started getting short of breath and developing some lower extremity edema. He was then taken to [facility] Emergency Department where he was diagnosed with pneumonia and likely congestive heart failure. He was discharged to home. Normally the patient lives at home by himself; however, his daughter brought him home with her for the next week. His symptoms did not improve and they continued to slightly worsen. He did develop a productive cough along with fevers and myalgias and just an overall sense of malaise. He was seen by cardiology group on 2 days prior to presentation. At that time he was found to be slightly volume overloaded. He was started on low dose Lasix and further outpatient testing was ordered. The patient states that afterwards though he continued to decline and she brought him into the Emergency Department at [facility]. Currently, the patient states he continues to just not feel well. He is very tired, weak, some myalgias and a continued productive cough. He denies experiencing any chest pain or palpitations though. PAST SURGICAL HISTORY: 1. Shoulder surgery as a child. 2. Hemorrhoidectomy. MEDICAL ILLNESSES: 1. Abdominal aortic aneurysm measuring 3.8 cm. 2. Bladder carcinoma. 3. Chronic back pain. 4. Diabetes. 5. Diabetic retinopathy. 6. Hypertension. 7. Hypothyroidism. 8. Osteoarthritis. 9. Sensorineural hearing loss. FAMILY HISTORY: Noncontributory. REVIEW OF SYSTEMS: As per HPI, all other review of systems reviewed and negative at this time. SOCIAL HISTORY: The patient is a former smoker, he quit 30 years ago. Denies any alcohol or recreational drug use. He is . He lives at home by himself. He is a retired salesman. ALLERGIES: No known drug allergies. MEDICATIONS AN OUTPATIENT: 1. Aspirin 81 mg daily. 2. Lasix 20 mg daily. 3. Lisinopril 10 mg daily. 4. Nucynta 50 mg daily. 5. Metformin b.i.d. 6. Levothyroxine daily. 7. Glipizide b.i.d. PHYSICAL EXAMINATION: VITALS: Temperature 37.3, pulse 117, respiratory rate 12, blood pressure 132/79. GENERAL: Awake, alert, oriented x3 in no acute distress, very hard of hearing. HEENT: Normocephalic, atraumatic. Pupils equal, round, and reactive to light and accommodation. Extraocular muscles intact. Anicteric sclerae. Moist mucous membranes. NECK: No JVD or bruit. CARDIOVASCULAR: Regular but distant. Unable to appreciate murmurs, rubs or gallops. PULMONARY: Coarse lung sounds bilaterally with diffuse rhonchi, wheezing and scant bibasilar crackles. ABDOMEN: Bowel sounds x4, soft. No rebound, guarding, tenderness. No organomegaly. EXTREMITIES: No clubbing or cyanosis. Trace bilateral lower extremity pitting edema. +2 pedal pulses bilaterally. SKIN: Warm and dry. TEST RESULTS: A 12-lead EKG performed today independently reviewed at this time shows sinus tachycardia with poor R-wave progression across the precordium. No previous studies available for comparison. A 2D echocardiogram performed was read as normal LV chamber size and mild concentric LVH, severely reduced LV systolic function with severe global hypokinesis, EF 25-30%, grade 1 diastolic dysfunction, moderate aortic valve sclerosis without stenosis, moderate to severe mitral regurgitation, normal left atrial size. No previous studies available for comparison. CTA of the chest was read as limited study, no central pulmonary emboli. Multifocal bilateral nodular opacities, likely infectious/inflammatory. Small bilateral pleural effusions. IMPRESSION: 1. Community acquired pneumonia. 2. Severely reduced left ventricular systolic function with an ejection fraction of 25-30%. 3. Moderate to severe mitral regurgitation. RECOMMENDATIONS: It is my pleasure to see Mr. Trinh in consultation today. The patient and his daughter were counseled that given his presentation, what most likely occurred was that he has been having smoldering CHF for quite some time now and given his reduced mobility, it is not surprising that symptoms did not come to the surface. I do agree with Dr. Flores though that he has suffered from an acute infectious process from pneumonia and given likely passive congestion and bowel wall edema, it is the most likely reason why oral levofloxacin did not improve his symptoms. So he has been switched over to IV antibiotics at this time and I agree that the patient examines as dry and agree with giving him IV fluids gently at this time. Otherwise, the pathophysiology of cardiomyopathy was discussed with the patient and his daughter at great lengths. They were counseled that given the global nature on echocardiogram, that I highly doubt that it is ischemic in nature and given the fact there are no signs of any active ischemia as well as the fact that patient does not have any significantly overt cardiac symptoms, that I believe the most prudent course of action at this point would be to initiate medical therapy and then perform ischemic evaluation with cardiac catheterization once his pneumonia has been successfully treated. The patient and his daughter both state they understand, they agree with this above plan. So he will be started on Toprol-XL 12.5 mg daily at this time and we will hold off any diuretics. He is already on HELIO inhibitor and further recommendations to follow. Thank you very much for allowing me to participate in the care of your patient.
--- NOTE | 2016-04-03 15:12 | Pharmacy Progress Note ---
Glycemic: Assessment & Plan Date of Service Apr 03, 2016. Assessment & Plan Item Value Date Time Bedside Glucose 92 mg/dl 04/03/16 1101 Bedside Glucose 155 mg/dl H 04/03/16 0645 Random Glucose 169 mg/dl H 04/03/16 0321 Bedside Glucose 215 mg/dl H 04/02/16 2208 Home Diabetes Regimen: * glipizide 10mg po BID * Metformin 500mg po BID PLAN: Oral diabetes agents on hold, initiated Novolog sub per CF/CR. "Loosened " CR based on BSG 91mg/dL before lunch. Will hold off on starting basal insulin at this time, consider for fasting BSG > 180mg/dL? * Basal insulin: not needed at this time * Correctional Insulin: Novolog Correction per scale ACHS Goal Range: Low 140 mg/dL - High 180 mg/dL Correction Factor: 30 mg/dL/unit * Prandial insulin: Per carb ratio of 1 unit per 15 grams CHO consumed Pharmacy will continue to monitor patient daily and write orders per [facility] inpatient glycemic control protocol. Thanks. * Please note that the plan above was derived based on current level of insulin resistance and hospital stress. These recommendations are appropriate for inpatient admission only. Plan of care upon discharge will need to be reassessed to avoid potential outpatient hypo/hyperglycemia.
[2016-04-03] MEDS ORDERED: TAPENTADOL HCL 50 MG TAB PO SCH (17:00)
[2016-04-03] MEDS: TAPENTADOL HCL 50 MG TAB PO SCH (17:22)
[2016-04-03] MEDS: ENOXAPARIN 40 MG/0.4 ML SYR SC SCH (19:53)
[2016-04-04] VITALS (9 sets, daily range): BP systolic 89–149; BP diastolic 59–81; PULSE 73–106; TEMP 36.4–36.9; O2SAT 92–100
[2016-04-04] MEDS: PIPERACILL/TAZOBAC IV 3.375 GM in DEXTROSE 5% 100ML 100 ML IV SCH ×3 (00:36→16:39)
[2016-04-04] MEDS ORDERED: VANCOMYCIN TROUGH ONE (05:30)
[2016-04-04] MEDS: LEVOTHYROXINE 75 MCG TAB PO SCH (06:16)
[2016-04-04 06:27] LABS: BASO % 0.9 %; BASO ABS # 0.06 K/uL (0-0.2); COMPLETE YES; HEMATOCRIT 41.5 % (42-52); IG% 0.5 %; LYMPH % 19.8 %; LYMPH ABS # 1.31 K/uL (1.2-3.4); MEAN CELL VOLUME 96.7 fL (80-100); MEAN CORPUSCULAR HEMOGLOBIN 30.8 pg (25-34); MEAN CORPUSCULAR HGB CONC 31.8 g/dl (32-36); MEAN PLATELET VOLUME 10.1 fL (7.4-10.4); MONO % 17.5 %; NEUT % 61.3 %; PLATELET COUNT 258 K/uL (130-400); RED BLOOD COUNT 4.29 M/uL (4.7-6.1); WHITE BLOOD COUNT 6.63 K/uL (4.8-10.8)
[2016-04-04] MEDS: VANCOMYCIN INJ 1,100 MG in SODIUM CHLORIDE 0.9% 250ML 250 ML IV SCH ×2 (06:35→18:22)
[2016-04-04 07:00] LABS: BUN/CREATININE RATIO 17.4 (10-20); CALCIUM 7.9 mg/dl (8.5-10.1); CREATININE 1.2 mg/dl (0.60-1.40); MAGNESIUM 2.1 mg/dl (1.8-2.4); POTASSIUM 4.8 mmol/L (3.5-5.1)
[2016-04-04 07:40] LABS: ESTIMATED AVERAGE GLUCOSE 163 mg/dl; HA1C FLAG Normal (Normal)
[2016-04-04] MEDS: POLYETHYLENE (MIRALAX) 17 GM PACK PO PRN (08:22)
[2016-04-04] MEDS: ASPIRIN 81 MG ECTAB PO SCH (08:23)
[2016-04-04] MEDS: LISINOPRIL 10 MG TAB PO SCH (08:23)
[2016-04-04] MEDS: METOPROLOL SUCC 25MG EXT REL TAB PO SCH (08:24)
[2016-04-04] MEDS: LIDODERM (LIDOCAINE) PATCH 5% TD SCH (08:24)
--- NOTE | 2016-04-04 08:24 | DIAGNOSTIC IMAGING REPORT ---
CHEST ONE VIEW PORTABLE HISTORY: Short of breath. COMPARISON: Chest 04/03/2016. FINDINGS: The heart remains enlarged. Small bilateral pleural effusions. Diffuse interstitial and vascular thickening consistent with mild pulmonary edema. This remains unchanged. No pneumothorax. Old, healed right clavicle fracture. Bibasilar densities have progressed. This favors compressive atelectasis from the pleural effusions. IMPRESSION: Progression of the interstitial pulmonary edema and small bilateral pleural effusions Electronically signed by: Derik Gonzalez M.D. 04/04/2016 8:22 AM
[2016-04-04] MEDS: INSULIN ASPART 100 UNITS/ML 3 ML PEN SC SCH ×4 (08:28→20:23)
[2016-04-04] MEDS: ACETAMINOPHEN 325 MG TAB PO PRN (08:29)
[2016-04-04] MEDS ORDERED: NURSING VERBAL MED ORDER ONE (10:00)
[2016-04-04] MEDS ORDERED: FUROSEMIDE 40 MG/4 ML VIAL IV STA (11:23)
[2016-04-04] MEDS ORDERED: FUROSEMIDE INJ 40 MG in SYRINGE 0 ML IV ONE (11:45)
--- NOTE | 2016-04-04 12:18 | Clinical Documentation Query ---
DARCI Penaloza : CLINICAL DOCUMENTATION QUERY Patient is an 85 year old male admitted for sepsis secondary to pneumonia. He was fluid resuscitated initially with repeat IV boluses and then maintenance IVF. This a.m. (04/04), patient noted (per nursing) to have a respiratory rate int the 30's with accessory muscle use at rest, with rates into the 40's with activity. He was on 3L supplemental O2. Portable chest radiograph demonstrated "Progression of the interstitial pulmonary edema and small bilateral pleural effusions". Subsequent to this, patient has recieved IV Furosemide. Echocardiogram read to include "severely reduced LV systolic function with severe global hypokinesis, EF 25-30%." He is being seen in consultation by cardiology. In your clinical opinion is this patient being managed for: ( x ) Acute systolic CHF ( ) Other explanation of clinical findings (Please Explain) ( ) Unable to determine (Please Define) ( ) Need to Discuss ( ) Not Agree The medical record reflects the following clinical findings, treatment, and risk factors. Clinical Indicators: As above Treatment: IV Lasix, supplemental O2, radiology, labs, cardiology consultation Risk Factors: Age, hypertension, DM, IVF administration, acute infection Please clarify and document your clinical opinion in the progress notes and discharge summary. Terms such as "probable", "suspected", "likely", "questionable", "possible", or "still to be ruled out" are acceptable. IF IN AGREEMENT, YOU MUST DOCUMENT ABOVE DIAGNOSTIC STATEMENT IN DAILY PROGRESS NOTES AND DISCHARGE SUMMARY. This document is not part of the patient's record. Thank You, Dc Melendez, JO [phone]
--- NOTE | 2016-04-04 13:11 | Cardiology Follow-Up ---
Subjective Subjective Date of Service: Apr 04, 2016. Pt evaluation today including: conversation w/ patient, conversation w/ family , physical exam, lab review, review of studies, review of inpatient medication list Additional Details: Pt seen and examined, events of last PM and this AM reviewed. Currently, patient seated upright in bed eating lunch. States that he feels well, just tired. Denies cp, sob, palpitations, lightheadedness or dizziness. Tele reviewed: sinus rhythm without arrhythmia or significant ectopy. Problem List Medical Problems: (1) Elevated troponin Status: Acute (2) Heart failure Status: Acute (3) Pneumonia Status: Acute (4) Sepsis Status: Acute Review of Systems Respiratory: No cough, No dyspnea at rest, No dyspnea on exertion, No hemoptysis, No problem reported, No see HPI, No shortness of breath, No sputum, No wheezing Cardiac: No PND, No chest pain, No claudication, No edema, No orthopnea, No palpitations, No problem reported, No see HPI Objective Vital Signs Last Vital Signs Documentation Date Time Temp Pulse Resp B/P Pulse Ox O2 Delivery O2 Flow Rate FiO2 04/04/16 11:53 36.4 94 20 108/70 94 Nasal Cannula 3.0 Physical Exam: General Appearance: WD/WN, no apparent distress Eyes: bilateral eyes EOMI, bilateral eyes PERRL, bilateral eyes normal inspection ENT: normal ENT inspection, hearing grossly normal, pharynx normal Neck: supple, no adenopathy, thyroid normal, no JVD, no carotid bruits, trachea midline Respiratory/Chest: chest non-tender, + crackles, + rhonchi, + wheezing Cardiovascular: regular rate, rhythm, no edema, no JVD, no murmur, + gallop/S4 Abdomen: normal bowel sounds, non tender, soft, no organomegaly, no pulsatile mass Extremities: normal inspection, no pedal edema, no calf tenderness Neurologic/Psychiatric: network administrator II-XII nml as tested, no motor/sensory deficits, alert, normal mood/affect, oriented x 3 Skin: normal color, warm/dry, no rash Lymphatic: no adenopathy Assessment and Plan 1. cardiomyopathy newly discovered no sign of active ischemia evidence beta tamanna initiated, will uptitrate hold off on brown for now further ischemic work up to be completed once active pneumonia resolves 2. acute systolic heart failure did not examine as volume overloaded yesterday did not tolerate 500 ml's of fluid given dose of lasix will start po spironolactone hold off on further IV diuretics at this time and follow volume status clinically 3. moderate to severe MR also likely playing role in volume overload Had long discussion with daughter, she has filled out DNR paperwork. She is concerned patient may be losing will to live. Explained '' process. Also, explained that next 24 hours will give us a better idea as to usp prognosis.
[2016-04-04] MEDS ORDERED: METOPROLOL SUCC 25MG EXT REL TAB PO ONE (13:15)
--- NOTE | 2016-04-04 13:29 | Pharmacy Progress Note ---
Pharmacy Antibiotic Prog Note Date of Service: Apr 04, 2016. Subjective: The patient is currently receiving VANCOMYCIN 1100mg IV every 16 hours. The patient is currently on day # 3 of VANCOMYCIN / ZOSYN IV therapy. Objective: Height (Feet): 5 Height (Inches): 10.00 Weight (Kilograms): 77.700 Levels: Item Value Date Time Vancomycin Level Trough 11.0 mcg/ml 04/04/16 0557 Lab Results (24hrs): Laboratory Tests Test 04/04/16 05:57 BUN/Creatinine Ratio 17.4 Blood Urea Nitrogen 21 mg/dl Creatinine 1.20 mg/dl White Blood Count 6.63 K/uL Red Blood Count 4.29 M/uL Hemoglobin 13.2 g/dL Hematocrit 41.5 % Mean Corpuscular Volume 96.7 fL Mean Corpuscular Hemoglobin 30.8 pg Mean Corpuscular Hemoglobin Concent 31.8 g/dl Platelet Count 258 K/uL Mean Platelet Volume 10.1 fL Neutrophils (%) (Auto) 61.3 % Lymphocytes (%) (Auto) 19.8 % Monocytes (%) (Auto) 17.5 % Eosinophils (%) (Auto) 0.0 % Basophils (%) (Auto) 0.9 % Neutrophils # (Auto) 4.07 K/uL Lymphocytes # (Auto) 1.31 K/uL Monocytes # (Auto) 1.16 K/uL Eosinophils # (Auto) 0.00 K/uL Basophils # (Auto) 0.06 K/uL Micro Results: * 04/02/16 -- Blood Cx x 2 -- NGTD x 2 * 04/02/16 -- Urine Cx -- No growth * -- Nasal swab -- (-) MRSA Assessment & Plan: 85yo male on day 3 of VANCOMYCIN / ZOSYN for sepsis secondary to possible PNA. VANCOMYCIN: * Patient has been receiving VANCOMYCIN 1100mg IV q16h. * Trough level drawn prior to 0600 dose today = 11 mcg/mL. * This drug level is Subtherapeutic. * Change to VANCOMYCIN 1100mg IV every 12 hours. * Goal trough level estimate: between 15 - 20 mcg/mL. * Will recheck a trough level prior to the 0600 dose on 04/06/16. Will also monitor patient's renal function closely, as SCr increased slightly today (0.93 -> 1.2). * Discussed case with Dr Flores. Will continue vancomycin for now, despite (-) MRSA nasal swab, as patient is declining clinically and it is not clear whether this is due to heart failure or PNA. Will reassess daily and de-escalate when appropriate. Pharmacy will continue to follow and will adjust dose/frequency as necessary. Thank you
[2016-04-04 14:00] LABS: INFLUENZA A PCR POS for Influ A (NEG); INFLUENZA B PCR Neg for Influ B (NEG)
[2016-04-04] MEDS: OSELTAMIVIR PHOSPHATE SUSP 30 MG/5 ML UDP PO SCH ×2 (16:40→20:31)
[2016-04-04] MEDS: TAPENTADOL HCL 50 MG TAB PO SCH (16:55)
[2016-04-04] MEDS: ENOXAPARIN 40 MG/0.4 ML SYR SC SCH (20:28)
[2016-04-05] VITALS (11 sets, daily range): BP systolic 88–103; BP diastolic 51–66; PULSE 67–87; TEMP 36.3–37.3; O2SAT 91–100
[2016-04-05] MEDS: PIPERACILL/TAZOBAC IV 3.375 GM in DEXTROSE 5% 100ML 100 ML IV SCH ×3 (00:18→15:54)
--- NOTE | 2016-04-05 00:43 | Progress Note ---
Medicine Progress Note Date & Time of Visit: Apr 04, 2016 at 1400. Subjective -feeling fine today -denies fevers or chills -doesn't feel as though he is working to breath -some coughing persists -conversation with daughter RE: code status, she states that her father doesn't want to do anything that would prolong his life if no QOL was there. I addressed her wish for him to be Objective Last 8 Hrs Date Time Temp Pulse Resp B/P Pulse Ox O2 Delivery O2 Flow Rate FiO2 04/04/16 19:25 36.5 73 16 94/60 100 Nasal Cannula 2.0 04/04/16 16:36 36.5 75 20 96/59 99 Nasal Cannula 3.0 04/04/16 16:00 Nasal Cannula 3.0 04/04/16 15:54 73 99 04/04/16 14:06 Nasal Cannula 3.0 Physical Exam: GEN: WNWD, in no acute distress, alert and appropriate, NC in place HEENT: NC/AT, normal sclerae CARDIO: tachy rate, S1/2 heard without m/g/r LUNGS: Rales improved-not as diffuse today, good diaphragmatic excursion, good breath sounds. ABD: soft, non-tender, non-distended, no rebound or guarding EXTREMITY: RP and DP palpable 2+ bilat, no LE swelling or edema, extremities are warm and well-perfused NEURO: CN 2-12 grossly intact, no gross focal deficits. MUSC: moves around the bed easily, no gross focal deficits. SKIN: warm and dry Laboratory Results: Last 24 Hours Test 04/04/16 00:00 04/04/16 05:57 04/04/16 06:34 04/04/16 10:59 Influenza Type A (RT-PCR) POS for Influ A Influenza Type B (RT-PCR) Neg for Influ B White Blood Count 6.63 K/uL Red Blood Count 4.29 M/uL Hemoglobin 13.2 g/dL Hematocrit 41.5 % Mean Corpuscular Volume 96.7 fL Mean Corpuscular Hemoglobin 30.8 pg Mean Corpuscular Hemoglobin Concent 31.8 g/dl Platelet Count 258 K/uL Mean Platelet Volume 10.1 fL Neutrophils (%) (Auto) 61.3 % Lymphocytes (%) (Auto) 19.8 % Monocytes (%) (Auto) 17.5 % Eosinophils (%) (Auto) 0.0 % Basophils (%) (Auto) 0.9 % Neutrophils # (Auto) 4.07 K/uL Lymphocytes # (Auto) 1.31 K/uL Monocytes # (Auto) 1.16 K/uL Eosinophils # (Auto) 0.00 K/uL Basophils # (Auto) 0.06 K/uL RDW Standard Deviation 50.0 fL RDW Coefficient of Variation 14.1 % Immature Granulocyte % (Auto) 0.5 % Immature Granulocyte # (Auto) 0.03 K/uL Sodium Level 138 mmol/L Potassium Level 4.8 mmol/L Chloride Level 100 mmol/L Carbon Dioxide Level 30 mmol/L Anion Gap 8.0 mmol/L Blood Urea Nitrogen 21 mg/dl Creatinine 1.20 mg/dl Est Creatinine Clear Calc Drug Dose 45.6 ml/min Estimated GFR () 63.1 Estimated GFR (Non- 54.4 BUN/Creatinine Ratio 17.4 Random Glucose 143 mg/dl Calcium Level 7.9 mg/dl Magnesium Level 2.1 mg/dl Vancomycin Level Trough 11.0 mcg/ml Bedside Glucose 156 mg/dl 164 mg/dl Test 04/04/16 16:25 04/04/16 20:10 Bedside Glucose 89 mg/dl 140 mg/dl Assessment & Plan 85 yo M with hypertension and no known heart disease presents to the ER with sepsis 2/2 pneumonia 1. Sepsis 2/2 pneumonia/flu- stable and slightly worse after fluid administration either because he was dehydrated and infiltrates are fluffing out or because his EF is poor and pulmonary edema is present-may be a combination. CXR was concerning for worsening pulmonary edema so Lasix was given with min effect. Still requiring 2-3L oxygen, afebrile, some cough. Per cards cont to hold off on fluids or Lasix at this time. Cont Vanc/Zosyn with blood cultures pending. Flu repeat was positive-started Tamiflu (04/04) 2. Poor systolic function (EF 25%)-uncertain chronicity, managed medically per cards who added and increased Toprol XL and added spironolactone. Home lisinopril. Cont ASA. Plan for ischemic workup once pulmonary infection has resolved. 3. Hypoxia 2/2 #1 and #2 4. Hypertroponemia-likely etiology is acute infection with no h/o known CAD, however, patient does have risk factors including age and hypertension and has low EF. Cont ASA. EKG reviewed this am. Cont telemetry. 5. LE edema-resolved. 6. Hypertension-cont lisinopril at home dose 10mg 7. 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 Appreciate glycemic pharmacist assistance with management to goal sugars 8. Chronic back pain 2/2 known degenerative disease-cont daily Nucynta at 1700 9. Hypothyroidism-cont home Synthroid at 75mcg PO daily 10. chronic constipation-resolved -4 BMs today. Nutrition-ADA diet DVT proph-[place] 40 Full code Dispo-to telemetry floor. DC planning: Lives alone-PT/OT to assess abilities. Appreciate director social evaluation to ensure safe to return home at discharge. Daughter at bedside-discussed findings and plan with her today. All questions were answered. Palliative care nurse was consulted to assist daughter in code status options. Of note, later in the chart, I noticed a DNR status without an order. I contacted the nurse to look into this as this was a point of confusion for the family during my last discussion with them several hours ago, and needs to be changed back to full code. Diana Flores DO [facility] Hospitalist Current Inpatient Medications: Current Inpatient Medications Medications (Trade) Dose Ordered Sig/Ricky Route Start Time Stop Time Status Last Admin Dose Admin Ioversol (Optiray 320) 125 ml UD PRN IV 04/02/16 16:45 04/06/16 16:44 Enoxaparin Sodium 40 mg 40 mg QPM SC 04/02/16 23:00 05/02/16 22:59 04/04/16 20:28 40 MG Sodium Chloride (Nss 1000ml) 1,000 ml @ 100 mls/hr Q10H IV 04/02/16 19:22 Future Hold 04/02/16 22:23 100 MLS/HR Acetaminophen (Tylenol Tab) 650 mg Q4H PRN PO 04/02/16 19:30 05/02/16 19:29 04/04/16 08:29 650 MG Ondansetron HCl (Zofran Inj) 4 mg Q6H PRN IV 04/02/16 19:30 05/02/16 19:29 Nitroglycerin (Nitrostat Tab) 0.4 mg UD PRN SL 04/02/16 19:30 05/02/16 19:29 Morphine Sulfate (MoRPHine SULFATE INJ) 2 mg Q30M PRN IV 04/02/16 19:30 04/16/16 19:29 Aspirin (Ecotrin Tab) 81 mg QAM PO 04/03/16 09:00 05/03/16 08:59 04/04/16 08:23 81 MG Polyethylene (Miralax Powder Packet) 17 gm DAILY PRN PO 04/02/16 19:30 05/02/16 19:29 04/04/16 08:22 17 GM Insulin Aspart (novoLOG ASPART) SLIDING SCALE If C... ACHS SC 04/02/16 21:00 05/02/16 20:59 04/04/16 11:00 4 UNITS Glucose (Glucose 40% Gel) 15-30 GRAMS 15 GRAMS... UD PRN PO 04/02/16 19:30 05/02/16 19:29 Glucose (Glucose Chew Tab) 4-8 Tablets 4 Tabl... UD PRN PO 04/02/16 19:30 05/02/16 19:29 Dextrose (Dextrose 50% 50ML Syringe) 25-50ML OF 50% DW IV FOR... UD PRN IV 04/02/16 19:30 05/02/16 19:29 Glucagon (Glucagon Inj) 1 mg UD PRN SQ 04/02/16 19:30 05/02/16 19:29 Miscellaneous Information 1 ea 1 ea UD PRN N/A 04/02/16 20:22 05/02/16 20:21 Piperacillin Sod/ Tazobactam Sod/ Dextrose (Zosyn Iv/D5 100ml) 115 ml @ 28.75 mls/ hr Q8H IV 04/03/16 00:00 04/12/16 00:00 04/04/16 16:39 28.75 MLS/HR Vancomycin HCl (Consult) 1 ea UD PRN N/A 04/02/16 20:30 05/02/16 20:29 Piperacillin Sod/ Tazobactam Sod (Consult) 1 ea UD PRN N/A 04/02/16 20:30 05/02/16 20:29 Levothyroxine Sodium (Synthroid Tab) 75 mcg DAILYBB PO 04/03/16 06:00 05/03/16 06:59 04/04/16 06:16 75 MCG Lisinopril (Zestril Tab) 10 mg DAILY PO 04/03/16 09:00 05/03/16 08:59 04/04/16 08:23 10 MG Ipratropium Lamont (Atrovent 0.02% 0.5MG/2.5ML Neb) 0.5 mg Q4H PRN INH 04/03/16 03:15 05/03/16 03:14 Levalbuterol (Xopenex 1.25MG/ 0.5ML Neb) 1.25 mg Q4H PRN INH 04/03/16 03:15 05/03/16 03:14 Menthol (Nice El) 1 el PRN PRN PO 04/03/16 09:15 05/03/16 09:14 04/03/16 11:44 1 EL Hydrocodone Bit/ Homatropine Methylb (Hycodan Syrup) 5 ml Q4H PRN PO 04/03/16 11:30 04/17/16 11:29 04/03/16 11:41 5 ML Tapentadol (Nucynta Tab) 50 mg Q24H PO 04/03/16 17:00 04/17/16 16:59 04/04/16 16:55 50 MG Lidocaine (Lidoderm Patch 5%) 1 patch QAM TD 04/03/16 11:45 05/03/16 11:44 Miscellaneous (Remove Lidoderm Patch) 1 ea DAILY@21 N/A 04/03/16 21:00 05/03/16 20:59 Metoprolol Succinate 12.5 mg 12.5 mg QAM PO 04/04/16 09:00 05/04/16 08:59 04/04/16 08:24 12.5 MG Vancomycin HCl/ Sodium Chloride (Vancomycin Inj/ Nss 250ml) 272 ml @ 125 mls/hr Q12H IV 04/04/16 18:00 04/11/16 17:59 04/04/16 18:22 125 MLS/HR Oseltamivir Phosphate (Tamiflu Susp) 30 mg BID PO 04/04/16 15:00 04/09/16 14:59 04/04/16 20:31 30 MG
[2016-04-05] MEDS: LEVOTHYROXINE 75 MCG TAB PO SCH (05:49)
[2016-04-05] MEDS: VANCOMYCIN INJ 1,100 MG in SODIUM CHLORIDE 0.9% 250ML 250 ML IV SCH (05:55)
[2016-04-05 06:06] LABS: BASO % 0.4 %; BASO ABS # 0.04 K/uL (0-0.2); COMPLETE YES; HEMATOCRIT 42.3 % (42-52); IG% 0.4 %; LYMPH ABS # 2.27 K/uL (1.2-3.4); MEAN CORPUSCULAR HEMOGLOBIN 31.4 pg (25-34); MEAN CORPUSCULAR HGB CONC 32.4 g/dl (32-36); MEAN PLATELET VOLUME 10.6 fL (7.4-10.4); MONO % 14.8 %; NEUT % 61.4 %; PLATELET COUNT 230 K/uL (130-400); RED BLOOD COUNT 4.36 M/uL (4.7-6.1); WHITE BLOOD COUNT 9.85 K/uL (4.8-10.8)
[2016-04-05 06:52] LABS: CREATININE 2.1 mg/dl (0.60-1.40)
[2016-04-05] MEDS: INSULIN ASPART 100 UNITS/ML 3 ML PEN SC SCH ×4 (07:00→21:00)
[2016-04-05] MEDS: LIDODERM (LIDOCAINE) PATCH 5% TD SCH (08:55)
[2016-04-05] MEDS: LISINOPRIL 10 MG TAB PO SCH (09:00)
[2016-04-05] MEDS: METOPROLOL SUCC 25MG EXT REL TAB PO SCH (09:24)
[2016-04-05] MEDS: ASPIRIN 81 MG ECTAB PO SCH (09:24)
[2016-04-05] MEDS: OSELTAMIVIR PHOSPHATE SUSP 30 MG/5 ML UDP PO SCH ×2 (09:25→21:29)
--- NOTE | 2016-04-05 11:00 | Palliative Care Consultation ---
Consultation Date of Consultation: Apr 05, 2016. Requesting Physician: Dr. Flores Attending Physician: Dr. Sparks Reason for Consultation: Goals of care History of Present Illness This 85 year old male patient presented to the ED from his daughter's home three days ago with complaints of shortness of breath, decreased activity tolerance, cough and general malaise. This SOB began a few months ago but became acutely worse about a week prior to arrival. He had actually been seen in the [place] ED, told he had an elevated troponin, but it was "nothing to worry about" so they sent him home. In our ED, CXR showed radiographic evidence of congestive failure, increased density of the right hilum which could be atelectatic vs. inflammatory process vs. neoplasm. He had elevated WBCs and tachycardia, treated for sepsis, CHF, and possible community acquired pneumonia ; he is also now positive for influenza. Over night after admission, the patient 's O2 level desaturated into the 80s on room air. He was given furosemide 40mg IV and placed on supplemental O2. An echocardiogram showed new cardiomyopathy with global hypokinesis, EF of 25-30%, moderate to severe mitral regurgitation, severely decreased LV systolic function and moderate AV sclerosis. He was seen by Dr. Feldman with cardiology who gave the option of a possible heart catheterization once pneumonia and flu resolved, but for now started the patient on a low-dose beta tamanna. Clinically, the patient has had some improvement, but is stating that he is tired and ready to just be home and be comfortable. Palliative care consulted to assist with establishing goals of care with the patient and his daughter/POA, Delores Trinh. I met with the daughter, first Delores. The patient filled out "Last Wishes" paperwork with her just this week and stated he would not want invasive procedures, CPR, intubation, or feeding tube. His goal is to be comfortable and stay out of the hospital. However, when Dr. Flores was talking about a DNR status with the patient and daughter, he became overwhelmed and said he'd like to defer the decision making to his daughter. After discussing goals of care, Delores did decide to make patient a DNR/DNI. We discussed discharge options as well. I gave her a POLST form and explained it-- we can fill this out closer to discharge. The patient was sitting in chair when I initially walked in, then got back in bed. He states he is feeling much better today and is less short of breath, but still has significant dyspnea on exertion. He denies any pain or other complaints. Says he is eating fairly well and "feels pretty good." Past Medical/Surgical History Medical History: AAA Bladder carcinoma chronic back pain DM Diabetic retinopathy Hypertension Hypothyroidism Osteoarthritis of shoulder Prostatic carcinoma Sensorineural hearing loss Surgical History: Hemorrhoidectomy Shoulder surgery as a child Social History Smoking Status: Former Smoker Drug Use: none Marital Status: other Housing Status: lives alone Occupation Status: retired Review of Systems Constitutional: + fatigue, + weakness, No chills, No fever ENT: + hearing loss (patient's norm) Respiratory: + cough, + dyspnea on exertion, + shortness of breath, No dyspnea at rest, No sputum Cardiac: + edema (much improved), No chest pain, No palpitations Abdomen: No diarrhea, No nausea, No pain, No vomiting Male : No problem reported Allergies Coded Allergies: No Known Allergies (Unverified , 04/02/16) Medications Current Inpatient Medications Medications (Trade) Dose Ordered Sig/Ricky Route Start Time Stop Time Status Last Admin Dose Admin Ioversol (Optiray 320) 125 ml UD PRN IV 04/02/16 16:45 04/06/16 16:44 Enoxaparin Sodium 40 mg 40 mg QPM SC 04/02/16 23:00 05/02/16 22:59 04/04/16 20:28 40 MG Sodium Chloride (Nss 1000ml) 1,000 ml @ 100 mls/hr Q10H IV 04/02/16 19:22 Future Hold 04/02/16 22:23 100 MLS/HR Acetaminophen (Tylenol Tab) 650 mg Q4H PRN PO 04/02/16 19:30 05/02/16 19:29 04/04/16 08:29 650 MG Ondansetron HCl (Zofran Inj) 4 mg Q6H PRN IV 04/02/16 19:30 05/02/16 19:29 Nitroglycerin (Nitrostat Tab) 0.4 mg UD PRN SL 04/02/16 19:30 05/02/16 19:29 Morphine Sulfate (MoRPHine SULFATE INJ) 2 mg Q30M PRN IV 04/02/16 19:30 04/16/16 19:29 Aspirin (Ecotrin Tab) 81 mg QAM PO 04/03/16 09:00 05/03/16 08:59 04/05/16 09:24 81 MG Polyethylene (Miralax Powder Packet) 17 gm DAILY PRN PO 04/02/16 19:30 05/02/16 19:29 04/04/16 08:22 17 GM Insulin Aspart (novoLOG ASPART) SLIDING SCALE If C... ACHS SC 04/02/16 21:00 05/02/16 20:59 04/05/16 07:00 1 UNITS Glucose (Glucose 40% Gel) 15-30 GRAMS 15 GRAMS... UD PRN PO 04/02/16 19:30 05/02/16 19:29 Glucose (Glucose Chew Tab) 4-8 Tablets 4 Tabl... UD PRN PO 04/02/16 19:30 05/02/16 19:29 Dextrose (Dextrose 50% 50ML Syringe) 25-50ML OF 50% DW IV FOR... UD PRN IV 04/02/16 19:30 05/02/16 19:29 Glucagon (Glucagon Inj) 1 mg UD PRN SQ 04/02/16 19:30 05/02/16 19:29 Miscellaneous Information 1 ea 1 ea UD PRN N/A 04/02/16 20:22 05/02/16 20:21 Piperacillin Sod/ Tazobactam Sod/ Dextrose (Zosyn Iv/D5 100ml) 115 ml @ 28.75 mls/ hr Q8H IV 04/03/16 00:00 04/12/16 00:00 04/05/16 09:23 28.75 MLS/HR Vancomycin HCl (Consult) 1 ea UD PRN N/A 04/02/16 20:30 05/02/16 20:29 Piperacillin Sod/ Tazobactam Sod (Consult) 1 ea UD PRN N/A 04/02/16 20:30 05/02/16 20:29 Levothyroxine Sodium (Synthroid Tab) 75 mcg DAILYBB PO 04/03/16 06:00 05/03/16 06:59 04/05/16 05:49 75 MCG Lisinopril (Zestril Tab) 10 mg DAILY PO 04/03/16 09:00 05/03/16 08:59 04/04/16 08:23 10 MG Ipratropium [place] (Atrovent 0.02% 0.5MG/2.5ML Neb) 0.5 mg Q4H PRN INH 04/03/16 03:15 05/03/16 03:14 Levalbuterol (Xopenex 1.25MG/ 0.5ML Neb) 1.25 mg Q4H PRN INH 04/03/16 03:15 05/03/16 03:14 Menthol (Nice El) 1 el PRN PRN PO 04/03/16 09:15 05/03/16 09:14 04/03/16 11:44 1 EL Hydrocodone Bit/ Homatropine Methylb (Hycodan Syrup) 5 ml Q4H PRN PO 04/03/16 11:30 04/17/16 11:29 04/03/16 11:41 5 ML Lidocaine (Lidoderm Patch 5%) 1 patch QAM TD 04/03/16 11:45 05/03/16 11:44 Miscellaneous (Remove Lidoderm Patch) 1 ea DAILY@21 N/A 04/03/16 21:00 05/03/16 20:59 Metoprolol Succinate 12.5 mg 12.5 mg QAM PO 04/04/16 09:00 05/04/16 08:59 04/05/16 09:24 12.5 MG Vancomycin HCl/ Sodium Chloride (Vancomycin Inj/ Nss 250ml) 272 ml @ 125 mls/hr Q12H IV 04/04/16 18:00 04/11/16 17:59 Future Hold 04/05/16 05:55 125 MLS/HR Oseltamivir Phosphate (Tamiflu Susp) 30 mg BID PO 04/04/16 15:00 04/09/16 14:59 04/05/16 09:25 30 MG Tapentadol (Nucynta Tab) 50 mg Q24H PRN PO 04/05/16 17:00 04/19/16 16:59 Physical Exam Date Time Temp Pulse Resp B/P Pulse Ox O2 Delivery O2 Flow Rate FiO2 04/05/16 08:00 37.0 78 24 99/64 92 Nasal Cannula 2.0 76 91/53 04/05/16 04:00 Nasal Cannula 2.0 04/05/16 03:19 37.3 75 19 100/60 91 Nasal Cannula 2.0 04/05/16 00:12 36.6 87 20 103/66 100 Nasal Cannula 2.0 04/04/16 23:59 Nasal Cannula 2.0 04/04/16 20:00 100 Nasal Cannula 2.0 04/04/16 19:25 36.5 73 16 94/60 100 Nasal Cannula 2.0 04/04/16 16:36 36.5 75 20 96/59 99 Nasal Cannula 3.0 04/04/16 16:00 Nasal Cannula 3.0 04/04/16 15:54 73 99 04/04/16 14:06 Nasal Cannula 3.0 04/04/16 11:53 36.4 94 20 108/70 94 Nasal Cannula 3.0 General Appearance: no apparent distress Neck: no JVD, trachea midline Respiratory: no respiratory distress, + decreased breath sounds (bilateral bases), + crackles (bilateral bases, coarse), + wheezing (expiratory) Cardiovascular: regular rate, rhythm, + normal peripheral pulses, + pertinent finding (trace pitting edema of bilateral lower extremities) Abdomen: normal bowel sounds, non tender, soft Neurologic/Psychiatric: alert, normal mood/affect, oriented x 3 Laboratory Results Last 24 Hours Test 04/04/16 10:59 04/04/16 16:25 04/04/16 20:10 04/05/16 05:10 Bedside Glucose 164 mg/dl 89 mg/dl 140 mg/dl White Blood Count 9.85 K/uL Red Blood Count 4.36 M/uL Hemoglobin 13.7 g/dL Hematocrit 42.3 % Mean Corpuscular Volume 97.0 fL Mean Corpuscular Hemoglobin 31.4 pg Mean Corpuscular Hemoglobin Concent 32.4 g/dl Platelet Count 230 K/uL Mean Platelet Volume 10.6 fL Neutrophils (%) (Auto) 61.4 % Lymphocytes (%) (Auto) 23.0 % Monocytes (%) (Auto) 14.8 % Eosinophils (%) (Auto) 0.0 % Basophils (%) (Auto) 0.4 % Neutrophils # (Auto) 6.04 K/uL Lymphocytes # (Auto) 2.27 K/uL Monocytes # (Auto) 1.46 K/uL Eosinophils # (Auto) 0.00 K/uL Basophils # (Auto) 0.04 K/uL RDW Standard Deviation 51.0 fL RDW Coefficient of Variation 14.2 % Immature Granulocyte % (Auto) 0.4 % Immature Granulocyte # (Auto) 0.04 K/uL Creatinine 2.10 mg/dl Est Creatinine Clear Calc Drug Dose 26.1 ml/min Estimated GFR () 32.1 Estimated GFR (Non- 27.7 Test 04/05/16 06:45 Bedside Glucose 120 mg/dl Assessment & Plan Palliative Performance Scale: 60 % Problem list: Shortness of breath/STAFF[place] Weakness Cardiomyopathy CHF Influenza Pneumonia, community acquired Sepsis Goals of care Palliative care plan: Patient would like to be DNR/DNI confirmed with daughter/POA, Delores Trinh. He would not likely want a cardiac catheterization as he does not want invasive procedures-- this can be decided once pneumonia/flu is resolved. He will need discharge planning. Delores stated that he will likely need long-term placement after acute rehab/skilled stay at a facility. I agree with this, would not send patient home alone unless it was with hospice and 24 hour caregivers (which is probably not financially possible for him). Will work with case management on this. Also would like to have POLST completed before discharge. Continue patient 's current medications as managed by primary care and cardiology. Thank you kindly for this consult. I will follow.
--- NOTE | 2016-04-05 13:00 | Cardiology Follow-Up ---
Subjective Subjective Date of Service: Apr 05, 2016. Pt evaluation today including: conversation w/ patient, conversation w/ family , physical exam, chart review, lab review, review of studies, review of inpatient medication list Additional Details: Pt seen and examined with daughter at bedside. OOB in chair. States that he feels well today. Breathing has improved. Coughing reduced. Denies cp, sob, palpitations, lightheadedness or dizziness. tele reviewed: sinus rhythm without arrhythmia or significant ectopy. Problem List Medical Problems: (1) Elevated troponin Status: Acute (2) Heart failure Status: Acute (3) Pneumonia Status: Acute (4) Sepsis Status: Acute Review of Systems Constitutional: + fatigue, + weakness, No chills, No fever ENT: + hearing loss (patient's norm) Respiratory: + cough, + dyspnea on exertion, + shortness of breath, No dyspnea at rest, No sputum Cardiac: + edema (much improved), No chest pain, No palpitations Abdomen: No diarrhea, No nausea, No pain, No vomiting Male : No problem reported Objective Vital Signs Last Vital Signs Documentation Date Time Temp Pulse Resp B/P Pulse Ox O2 Delivery O2 Flow Rate FiO2 04/05/16 11:38 36.3 76 20 100/62 92 Room Air 76 04/05/16 08:00 2.0 Physical Exam: General Appearance: no apparent distress Eyes: bilateral eyes EOMI, bilateral eyes PERRL, bilateral eyes normal inspection ENT: normal ENT inspection, hearing grossly normal, pharynx normal Neck: no JVD, trachea midline Respiratory/Chest: no respiratory distress, + decreased breath sounds ( bilateral bases), + crackles (bilateral bases, coarse), + wheezing (expiratory) Cardiovascular: regular rate, rhythm, + normal peripheral pulses, + pertinent finding (trace pitting edema of bilateral lower extremities) Abdomen: normal bowel sounds, non tender, soft Extremities: normal inspection, no pedal edema, no calf tenderness Neurologic/Psychiatric: alert, normal mood/affect, oriented x 3 Skin: normal color, warm/dry, no rash Lymphatic: no adenopathy Assessment and Plan 1. cardiomyopathy newly discovered no sign of active ischemia evidence beta tamanna initiated clinically greatly improved today bp a little low hold brown, give BB 2. acute systolic heart failure does not examine as volume overloaded did not tolerate 500 ml's of fluid given dose of lasix will start po spironolactone hold off on further IV diuretics at this time and follow volume status clinically 3. moderate to severe MR also likely playing role in volume overload
--- NOTE | 2016-04-05 15:20 | Pharmacy Progress Note ---
Glycemic Control Intl Consult Date of Service Apr 05, 2016. Scope Glycemic Pharmacist consulted by Dr Flores on 04/02/16 for glycemic control and to write orders per [facility] inpatient glycemic control protocol Objective Weight (Kilograms): 78.000 Accuchecks BSG (last 24hrs): Test 04/04/16 16:25 04/04/16 20:10 04/05/16 06:45 04/05/16 11:02 Bedside Glucose 89 mg/dl (70-99) 140 mg/dl (70-99) 120 mg/dl (70-99) 163 mg/dl (70-99) Laboratory Data (last 24hrs) Test 04/05/16 05:10 Creatinine 2.10 mg/dl White Blood Count 9.85 K/uL Red Blood Count 4.36 M/uL Hemoglobin 13.7 g/dL Hematocrit 42.3 % Mean Corpuscular Volume 97.0 fL Mean Corpuscular Hemoglobin 31.4 pg Mean Corpuscular Hemoglobin Concent 32.4 g/dl Platelet Count 230 K/uL Mean Platelet Volume 10.6 fL Neutrophils (%) (Auto) 61.4 % Lymphocytes (%) (Auto) 23.0 % Monocytes (%) (Auto) 14.8 % Eosinophils (%) (Auto) 0.0 % Basophils (%) (Auto) 0.4 % Neutrophils # (Auto) 6.04 K/uL Lymphocytes # (Auto) 2.27 K/uL Monocytes # (Auto) 1.46 K/uL Eosinophils # (Auto) 0.00 K/uL Basophils # (Auto) 0.04 K/uL HbA1c Test 04/03/16 03:21 Hemoglobin A1c 7.3 % (4.5-5.6) H Recent Pertinent Medications Outpatient Anti-diabetic Regimen: * Glipizide 10 mg PO BIDM * Metformin 500 mg PO BIDM * A1c = 7.3 % 04/03/16 The patient is currently receiving: * Correctional Insulin: Novolog Correction per scale ACHS Goal Range: Low 140 mg/dL - High 180 mg/dL Correction Factor: 30 mg/dL/unit * Prandial insulin: Per carb ratio of 1 unit per 15 grams CHO consumed Risk Factors for Insulin Resistance: * Infection: Vancomycin/Zosyn/Tamiflu * Diet: AHA/T2DM Assessment & Plan ASSESSMENT: * 85 yo M admitted with sepsis secondary to pneumonia/flu, started on broad spectrum antibiotics and tamiflu * A1c 7.3% indicative of well controlled diabetes as outpatient * Pt only takes oral hypoglycemics at home(glipizide + metformin) * Since admission, BSGs have been within or below goal range with weight-based Novolog only * Of note, renal function has declined (Scr 1.2 mg/dL-->2.1 mg/dL this AM) * Continue to be cautious with insulin regimen as SELMA can cause increased insulin sensitivity * ADA & AACE recommend a goal blood sugar range 140-180 mg/dl for the majority of critically ill & non-critically ill patients. However, more stringent targets may be selected in individual cases. PLAN FOR INPATIENT GLYCEMIC CONTROL: * Hold outpatient oral diabetes medications * Continue Correctional Insulin with NOVOLOG per scale ACHS * Goal Range: Low 140 mg/dL - High 180 mg/dL * Correction Factor: 30 mg/dL/unit * Nutritional / Prandial insulin per carb ratio of 1 unit per 15 grams CHO consumed * Please note that the plan above was derived based on current level of insulin resistance and hospital stress. These recommendations are appropriate for inpatient admission only. Plan of care upon discharge will need to be reassessed to avoid potential outpatient hypo/hyperglycemia. Thank you.
[2016-04-05] MEDS ORDERED: TAPENTADOL HCL 50 MG TAB PO PRN (17:00)
--- NOTE | 2016-04-05 17:52 | Progress Note ---
Internal Med Progress Note Date of Service: Apr 05, 2016. Provider Documentation: SUBJECTIVE: sitting on the chair comfortably says sob better has cough afebrile' denies chest pain daughter in room OBJECTIVE: Vital Signs-as noted below Exam: General-alert and oriented x 3 ENT-normal hearing Neck-no neck masses Lungs-cta b/l no wheezing or crackles Heart-s1 and s2 heard regular rate and rhythm, no murmurs Abdomen-soft bowel sounds present non tender no distension Extremities-no edema no erythema Neuro-alert and awake moves extremities Lab data as noted below. ASSESSMENT & PLAN: 85 yo M with hypertension and no known heart disease presents to the ER with sepsis 2/2 pneumonia 1. Sepsis 2/2 pneumonia/flu- was started on vanco and Zosyn and Tamiflu vanco stopped as mrsa swab negative will add azithromycin BP on lower side off of fluids secondary to chf will monitor. 2. Poor systolic function (EF 25%)- new finding cardiology started on Toprol xl lisinopril on hold for low BP and ARF. plan to lace on spironolactone plan for cardiac cath once pneumonia is treated. 3. Hypoxia 2/2 #1 and #2. On nasal canula. If worsens will place on bipap. 4. elevated troponin mild from above will monitor. 5. ARF from sepsis, abx? had lasix yesterday? stopping vancomycin will f/u labs 6. LE edema-resolved. 7. Hypertension-holding lisnipril. started on low dose toprol xl. Will monitor. 8. 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 Appreciate pharmacy inputs. Will monitor. 9. Chronic back pain 2/2 known degenerative disease-on Nucynta at 1700. 10. Hypothyroidism-cont home Synthroid at 75mcg PO daily 11. chronic constipation-resolved -4 BMs today. Nutrition-ADA diet DVT proph-Lovenox 30 Vital Signs: Date Time Temp Pulse Resp B/P Pulse Ox O2 Delivery O2 Flow Rate FiO2 04/05/16 16:00 93 Nasal Cannula 3.5 04/05/16 15:45 36.7 68 17 94/64 93 Nasal Cannula 3.5 04/05/16 12:00 95 Nasal Cannula 2.0 04/05/16 11:38 36.3 76 20 100/62 92 Room Air 76 1/3/17 08:00 37.0 78 24 99/64 92 Nasal Cannula 2.0 76 91/53 04/05/16 08:00 Nasal Cannula 2.0 04/05/16 04:00 Nasal Cannula 2.0 04/05/16 03:19 37.3 75 19 100/60 91 Nasal Cannula 2.0 04/05/16 00:12 36.6 87 20 103/66 100 Nasal Cannula 2.0 04/04/16 23:59 Nasal Cannula 2.0 04/04/16 20:00 100 Nasal Cannula 2.0 04/04/16 19:25 36.5 73 16 94/60 100 Nasal Cannula 2.0 Lab Results: Results Past 24 Hours Test 04/04/16 20:10 04/05/16 05:10 04/05/16 06:45 04/05/16 11:02 Range/Units Bedside Glucose 140 120 163 70-99 mg/dl White Blood Count 9.85 4.8-10.8 K/uL Red Blood Count 4.36 4.7-6.1 M/uL Hemoglobin 13.7 14.0-18.0 g/dL Hematocrit 42.3 42-52 % Mean Corpuscular Volume 97.0 80-100 fL Mean Corpuscular Hemoglobin 31.4 25-34 pg Mean Corpuscular Hemoglobin Concent 32.4 32-36 g/dl Platelet Count 230 130-400 K/uL Mean Platelet Volume 10.6 7.4-10.4 fL Neutrophils (%) (Auto) 61.4 % Lymphocytes (%) (Auto) 23.0 % Monocytes (%) (Auto) 14.8 % Eosinophils (%) (Auto) 0.0 % Basophils (%) (Auto) 0.4 % Neutrophils # (Auto) 6.04 1.4-6.5 K/uL Lymphocytes # (Auto) 2.27 1.2-3.4 K/uL Monocytes # (Auto) 1.46 0.11-0.59 K/uL Eosinophils # (Auto) 0.00 0-0.5 K/uL Basophils # (Auto) 0.04 0-0.2 K/uL RDW Standard Deviation 51.0 36.4-46.3 fL RDW Coefficient of Variation 14.2 11.5-14.5 % Immature Granulocyte % (Auto) 0.4 % Immature Granulocyte # (Auto) 0.04 0.00-0.02 K/uL Creatinine 2.10 0.60-1.40 mg/dl Est Creatinine Clear Calc Drug Dose 26.1 ml/min Estimated GFR () 32.1 Estimated GFR (Non- 27.7 Test 04/05/16 16:02 Range/Units Bedside Glucose 141 70-99 mg/dl
[2016-04-05] MEDS ORDERED: AZITHROMYCIN IV 500 MG in DEXTROSE 5% 250ML 250 ML IV SCH (19:00)
[2016-04-05] MEDS: ENOXAPARIN 30 MG/0.3 ML SYR SC SCH (21:33)
[2016-04-05] MEDS ORDERED: FUROSEMIDE 40 MG/4 ML VIAL ONE (21:57)
[2016-04-05] MEDS ORDERED: NURSING VERBAL MED ORDER ONE (22:00)
--- NOTE | 2016-04-05 22:26 | DIAGNOSTIC IMAGING REPORT ---
CHEST ONE VIEW PORTABLE HISTORY: Short of breath. COMPARISON: Chest 04/04/2016. FINDINGS: The heart remains mildly enlarged. Small bilateral pleural effusions persist. Improvement in the right greater the left interstitial and vascular thickening suggestive of resolving pulmonary edema. Old, healed right clavicle fracture. There is a 5 cm bleb at the base of the left lower lobe. Patchy bibasilar densities persist. IMPRESSION: 1. Improving pulmonary edema. 2. Small bilateral pleural effusions and bibasilar patchy densities persist. This could represent atelectasis or pneumonia. Electronically signed by: Derik Gonzalez M.D. 04/05/2016 10:24 PM
[2016-04-06] VITALS (8 sets, daily range): BP systolic 95–116; BP diastolic 63–75; PULSE 66–78; TEMP 35.9–36.8; O2SAT 91–98
[2016-04-06] MEDS ORDERED: VANCOMYCIN TROUGH SCH (05:30)
[2016-04-06] MEDS: LEVOTHYROXINE 75 MCG TAB PO SCH (05:38)
[2016-04-06 07:30] LABS: BUN/CREATININE RATIO 23.9 (10-20); CALCIUM 7.8 mg/dl (8.5-10.1); CREATININE 2.1 mg/dl (0.60-1.40); MAGNESIUM 2.6 mg/dl (1.8-2.4); POTASSIUM 4.7 mmol/L (3.5-5.1)
[2016-04-06] MEDS: METOPROLOL SUCC 25MG EXT REL TAB PO SCH (07:46)
[2016-04-06] MEDS: ASPIRIN 81 MG ECTAB PO SCH (07:47)
[2016-04-06] MEDS: LIDODERM (LIDOCAINE) PATCH 5% TD SCH (07:52)
[2016-04-06] MEDS: OSELTAMIVIR PHOSPHATE SUSP 30 MG/5 ML UDP PO SCH (08:00)
[2016-04-06] MEDS: PIPERACILL/TAZOBAC IV 3.375 GM in DEXTROSE 5% 100ML 100 ML IV SCH ×5 (08:00→23:33)
[2016-04-06] MEDS: INSULIN ASPART 100 UNITS/ML 3 ML PEN SC SCH ×4 (08:05→21:00)
[2016-04-06] MEDS ORDERED: SPIRONOLACTONE 25 MG TAB PO ONE (11:46)
[2016-04-06] MEDS ORDERED: FUROSEMIDE 20 MG TAB PO ONE (11:46)
--- NOTE | 2016-04-06 11:57 | Cardiology Follow-Up ---
Subjective Subjective Date of Service: Apr 06, 2016. Pt evaluation today including: conversation w/ patient, conversation w/ family , physical exam, chart review, lab review, review of studies, review of inpatient medication list Additional Details: Pt seen and examined, discussed case with daughter. Pt did require IV lasix overnight for SOB, Currently denies complaint. Denies cp, sob, palpitations, lightheadedness or dizziness. Tele reviewed: sinus rhythm without arrhythmia or significant ectopy. Problem List Medical Problems: (1) Elevated troponin Status: Acute (2) Heart failure Status: Acute (3) Pneumonia Status: Acute (4) Sepsis Status: Acute Review of Systems Constitutional: + fatigue, + weakness, No chills, No fever ENT: + hearing loss (patient's norm) Respiratory: + cough, + dyspnea on exertion, + shortness of breath, No dyspnea at rest, No sputum Cardiac: + edema (much improved), No chest pain, No palpitations Abdomen: No diarrhea, No nausea, No pain, No vomiting Male : No problem reported Objective Vital Signs Last Vital Signs Documentation Date Time Temp Pulse Resp B/P Pulse Ox O2 Delivery O2 Flow Rate FiO2 04/06/16 08:35 36.4 71 20 102/63 96 Room Air 04/06/16 04:00 3.0 Physical Exam: General Appearance: WD/WN, no apparent distress, + cachetic, + thin Eyes: bilateral eyes EOMI, bilateral eyes PERRL, bilateral eyes normal inspection ENT: normal ENT inspection, pharynx normal, + pertinent finding (hard of hearing) Neck: supple, no adenopathy, thyroid normal, no JVD, trachea midline Respiratory/Chest: chest non-tender, lungs clear, normal breath sounds, no respiratory distress, no accessory muscle use, + decreased breath sounds ( bilateral bases), + crackles (bilateral bases, coarse), + wheezing (expiratory) Cardiovascular: regular rate, rhythm, no JVD, + gallop/S4, + pertinent finding (trace pitting edema of bilateral lower extremities) Abdomen: normal bowel sounds, non tender, soft, no organomegaly, no pulsatile mass Extremities: normal inspection, no pedal edema, no calf tenderness Neurologic/Psychiatric: airport refueling handler II-XII nml as tested, no motor/sensory deficits, alert, normal mood/affect, oriented x 3 Skin: normal color, warm/dry, no rash Lymphatic: no adenopathy Assessment and Plan 1. cardiomyopathy newly discovered no sign of active ischemia evidence beta tamanna initiated clinically greatly improved today bp a little low hold brown, give BB 2. acute systolic heart failure does not examine as volume overloaded cxr improved but episode of sob overnight improved with IV lasix will trial oral lasix/spironolactone follow K 3. moderate to severe MR also likely playing role in volume overload doubt surgical candidate, daughter agrees Daughter with a number of questions in regard to intermediate card tender outcome. Explained that time will tell. Will likely require inpt rehab upon d/c.
--- NOTE | 2016-04-06 18:41 | Progress Note ---
Internal Med Progress Note Date of Service: Apr 06, 2016. Provider Documentation: SUBJECTIVE: last night was hypoxic and a dose of iv Lasix given sitting comfortably on the chair denies any sob today denies chest pain afebrile has cough daughter in room and wants the patient to be referred to rehab OBJECTIVE: Vital Signs-as noted below Exam: General-alert and oriented x 3 ENT-normal hearing Neck-no neck masses Lungs-cta b/l no wheezing or crackles Heart-s1 and s2 heard regular rate and rhythm, no murmurs Abdomen-soft bowel sounds present non tender no distension Extremities-no edema no erythema Neuro-alert and awake moves extremities Lab data as noted below. ASSESSMENT & PLAN: 85 yo M with hypertension and no known heart disease presents to the ER with sepsis 2/2 pneumonia 1. Sepsis 2/2 pneumonia/flu- was started on vanco and Zosyn and Tamiflu vanco stopped as mrsa swab negative Added azithromycin BP on lower side off of fluids secondary to chf will continue current abx for now will f/u cxr in am 2. Poor systolic function (EF 25%)- new finding cardiology started on Toprol xl lisinopril on hold for low BP and ARF. cardiology started on po lasix and on spironolactone plan for cardiac cath once pneumonia is treated. 3. Hypoxia 2/2 #1 and #2. On nasal canula. If worsens will place on bipap. 4. elevated troponin mild from above will monitor. 5. ARF from sepsis, abx? had lasix yesterday? stopping vancomycin cr 2.1 today will f/u labs 6. LE edema-resolved. 7. Hypertension-holding lisinopril. started on low dose toprol xl and diuretic.. Will monitor. 8. 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 Appreciate pharmacy inputs. Will monitor. 9. Chronic back pain 2/2 known degenerative disease-on Nucynta at 1700. 10. Hypothyroidism-cont home Synthroid at 75mcg PO daily 11. chronic constipation-resolved - Nutrition-ADA diet DVT proph-Lovenox 30 Disposition: pt/ot plan for rehab social service for d/c planning Vital Signs: Date Time Temp Pulse Resp B/P Pulse Ox O2 Delivery O2 Flow Rate FiO2 04/06/16 16:00 Nasal Cannula 3.0 04/06/16 16:00 Nasal Cannula 3.0 04/06/16 15:36 36.4 66 20 95/63 96 Nasal Cannula 3.5 04/06/16 12:00 Nasal Cannula 3.0 04/06/16 11:49 36.8 77 22 108/73 96 Nasal Cannula 3.0 04/06/16 08:35 36.4 71 20 102/63 96 Room Air 04/06/16 08:00 Nasal Cannula 3.0 04/06/16 04:00 96 Nasal Cannula 3.0 04/06/16 04:00 35.9 78 17 116/74 93 Nasal Cannula 3.5 04/06/16 00:29 36.4 76 24 104/68 91 Nasal Cannula 3.5 04/05/16 23:59 95 Nasal Cannula 3.0 04/05/16 22:08 73 18 94 Nasal Cannula 3.5 04/05/16 20:17 36.6 67 18 88/51 94 04/05/16 20:00 93 Nasal Cannula 3.5 Lab Results: Results Past 24 Hours Test 04/05/16 20:31 04/06/16 05:23 04/06/16 06:57 04/06/16 11:47 Range/Units Bedside Glucose 138 143 158 70-99 mg/dl Sodium Level 136 136-145 mmol/L Potassium Level 4.7 3.5-5.1 mmol/L Chloride Level 97 98-107 mmol/L Carbon Dioxide Level 28 21-32 mmol/L Anion Gap 11.0 3-11 mmol/L Blood Urea Nitrogen 50 7-18 mg/dl Creatinine 2.10 0.60-1.40 mg/dl Est Creatinine Clear Calc Drug Dose 26.1 ml/min Estimated GFR () 32.1 Estimated GFR (Non- 27.7 BUN/Creatinine Ratio 23.9 10-20 Random Glucose 151 70-99 mg/dl Calcium Level 7.8 8.5-10.1 mg/dl Magnesium Level 2.6 1.8-2.4 mg/dl Random Vancomycin Level 21.1 mcg/ml Test 04/06/16 16:42 Range/Units Bedside Glucose 131 70-99 mg/dl
[2016-04-06] MEDS: ENOXAPARIN 30 MG/0.3 ML SYR SC SCH (20:54)
[2016-04-06] MEDS ORDERED: AZITHROMYCIN 250 MG TAB PO SCH (21:00)
[2016-04-07 03:42] VITALS: BP 125/82; PULSE 75; TEMP 35.7; O2SAT 98
[2016-04-07 06:01] LABS: HEMATOCRIT 42.9 % (42-52); MEAN CELL VOLUME 93.1 fL (80-100); MEAN CORPUSCULAR HEMOGLOBIN 30.6 pg (25-34); MEAN CORPUSCULAR HGB CONC 32.9 g/dl (32-36); MEAN PLATELET VOLUME 10.5 fL (7.4-10.4); PLATELET COUNT 190 K/uL (130-400); RED BLOOD COUNT 4.61 M/uL (4.7-6.1); WHITE BLOOD COUNT 7.02 K/uL (4.8-10.8)
[2016-04-07] MEDS: LEVOTHYROXINE 75 MCG TAB PO SCH (06:14)
[2016-04-07 06:28] LABS: CREATININE 1.6 mg/dl (0.60-1.40)
[2016-04-07 08:09] VITALS: BP 123/66; PULSE 83; TEMP 36.5; O2SAT 96
[2016-04-07] MEDS: ASPIRIN 81 MG ECTAB PO SCH (08:55)
[2016-04-07] MEDS: SPIRONOLACTONE 25 MG TAB PO SCH (08:55)
[2016-04-07] MEDS: FUROSEMIDE 20 MG TAB PO SCH (08:55)
[2016-04-07] MEDS: METOPROLOL SUCC 25MG EXT REL TAB PO SCH (08:55)
[2016-04-07] MEDS: LIDODERM (LIDOCAINE) PATCH 5% TD SCH (08:56)
[2016-04-07] MEDS: PIPERACILL/TAZOBAC IV 3.375 GM in DEXTROSE 5% 100ML 100 ML IV SCH (08:56)
[2016-04-07] MEDS: INSULIN ASPART 100 UNITS/ML 3 ML PEN SC SCH ×4 (08:58→20:15)
[2016-04-07] MEDS ORDERED: OSELTAMIVIR PHOSPHATE SUSP 30 MG/5 ML UDP PO SCH (09:00)
--- NOTE | 2016-04-07 10:33 | Cardiology Follow-Up ---
Subjective Subjective Date of Service: Apr 07, 2016. Pt evaluation today including: conversation w/ patient, physical exam, chart review, lab review, review of studies, review of inpatient medication list Additional Details: Pt seen and examined with daughter at bedside, no recurrence of sob overnight. Otherwise, remains very weak and lethargic. Denies cp, sob, palpitations, lightheadedness or dizziness. Tele reviewed: sinus rhythm without arrhythmia or significant ectopy. Problem List Medical Problems: (1) Elevated troponin Status: Acute (2) Heart failure Status: Acute (3) Pneumonia Status: Acute (4) Sepsis Status: Acute Review of Systems Constitutional: + fatigue, + weakness, No chills, No fever ENT: + hearing loss (patient's norm) Respiratory: + cough, + dyspnea on exertion, + shortness of breath, No dyspnea at rest, No sputum Cardiac: + edema (much improved), No chest pain, No palpitations Abdomen: No diarrhea, No nausea, No pain, No vomiting Male : No problem reported Objective Vital Signs Last Vital Signs Documentation Date Time Temp Pulse Resp B/P Pulse Ox O2 Delivery O2 Flow Rate FiO2 04/07/16 08:09 36.5 83 18 123/66 96 Nasal Cannula 3.0 Physical Exam: General Appearance: WD/WN, no apparent distress, + cachetic, + thin Eyes: bilateral eyes EOMI, bilateral eyes PERRL, bilateral eyes normal inspection ENT: normal ENT inspection, pharynx normal, + pertinent finding (hard of hearing) Neck: supple, no adenopathy, thyroid normal, no JVD, trachea midline Respiratory/Chest: chest non-tender, lungs clear, normal breath sounds, no respiratory distress, no accessory muscle use, + decreased breath sounds ( bilateral bases), + crackles (bilateral bases, coarse), + wheezing (expiratory) Cardiovascular: regular rate, rhythm, no JVD, + systolic murmur, + gallop/S4, + pertinent finding (trace pitting edema of bilateral lower extremities) Abdomen: normal bowel sounds, non tender, soft, no organomegaly, no pulsatile mass Extremities: normal inspection, no pedal edema, no calf tenderness Neurologic/Psychiatric: employee benefits specialist II-XII nml as tested, no motor/sensory deficits, alert, normal mood/affect, oriented x 3 Skin: normal color, warm/dry, no rash Lymphatic: no adenopathy Assessment and Plan 1. cardiomyopathy newly discovered no sign of active ischemia evidence beta tamanna initiated clinically greatly improved today lasix and spironolactone started unable to add brown at this time due to bp 2. acute systolic heart failure does not examine as volume overloaded follow K 3. moderate to severe MR also likely playing role in volume overload not a surgical candidate after discussing with daughter ok to d/c tele from cardiac standpoint
--- NOTE | 2016-04-07 11:03 | Progress Note ---
Internal Med Progress Note Date of Service: Apr 07, 2016. Provider Documentation: SUBJECTIVE: resting comfortably sob improving has dry cough denies chest pain diarrhea improved afebrile somewhat weak OBJECTIVE: Vital Signs-as noted below Exam: General-alert and oriented x 3 ENT-normal hearing Neck-no neck masses Lungs-cta b/l no wheezing or crackles Heart-s1 and s2 heard regular rate and rhythm, no murmurs Abdomen-soft bowel sounds present non tender no distension Extremities-no edema no erythema Neuro-alert and awake moves extremities Lab data as noted below. ASSESSMENT & PLAN: 85 yo M with hypertension and no known heart disease presents to the ER with sepsis 2/2 pneumonia 1. Sepsis 2/2 pneumonia/flu- was started on vanco and Zosyn and Tamiflu vanco stopped as mrsa swab negative Added azithromycin BP on lower side off of fluids secondary to chf WILL CHANGE ABX TO PO LEVAQUIN will f/u cxr in am 2. Poor systolic function (EF 25%)- new finding cardiology started on Toprol xl lisinopril on hold for low BP and ARF. cardiology started on po lasix and on spironolactone plan for cardiac cath once pneumonia is treated pt/ot. 3. Hypoxia 2/2 #1 and #2. On nasal canula. If worsens will place on bipap. 4. elevated troponin mild from above will monitor. 5. ARF from sepsis, abx? had lasix yesterday? stopping vancomycin cr 1.6 today will f/u labs 6. LE edema-resolved. 7. Hypertension-holding lisinopril. started on low dose toprol xl and diuretic.. Will monitor. 8. 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 Appreciate pharmacy inputs. Will monitor. 9. Chronic back pain 2/2 known degenerative disease-on Nucynta at 1700. 10. Hypothyroidism-cont home Synthroid at 75mcg PO daily 11. chronic constipation-resolved - Nutrition-ADA diet DVT proph-Lovenox 30 Disposition: pt/ot plan for rehab social service for d/c planning Vital Signs: Date Time Temp Pulse Resp B/P Pulse Ox O2 Delivery O2 Flow Rate FiO2 04/07/16 08:09 36.5 83 18 123/66 96 Nasal Cannula 3.0 04/07/16 07:45 Nasal Cannula 3.0 04/07/16 04:00 Nasal Cannula 3.0 04/07/16 03:42 35.7 75 22 125/82 98 Nasal Cannula 3.5 04/07/16 03:00 Nasal Cannula 3.0 04/07/16 00:01 Nasal Cannula 3.0 04/06/16 23:36 35.9 75 22 109/73 92 Nasal Cannula 3.5 04/06/16 20:00 96 Nasal Cannula 3.0 04/06/16 19:45 36.3 77 20 113/75 98 Nasal Cannula 4.0 04/06/16 16:00 Nasal Cannula 3.0 04/06/16 16:00 Nasal Cannula 3.0 04/06/16 15:36 36.4 66 20 95/63 96 Nasal Cannula 3.5 04/06/16 12:00 Nasal Cannula 3.0 04/06/16 11:49 36.8 77 22 108/73 96 Nasal Cannula 3.0 Lab Results: Results Past 24 Hours Test 04/06/16 11:47 04/06/16 16:42 04/06/16 21:37 04/07/16 05:19 Range/Units Bedside Glucose 158 131 136 70-99 mg/dl White Blood Count 7.02 4.8-10.8 K/uL Red Blood Count 4.61 4.7-6.1 M/uL Hemoglobin 14.1 14.0-18.0 g/dL Hematocrit 42.9 42-52 % Mean Corpuscular Volume 93.1 80-100 fL Mean Corpuscular Hemoglobin 30.6 25-34 pg Mean Corpuscular Hemoglobin Concent 32.9 32-36 g/dl RDW Standard Deviation 47.5 36.4-46.3 fL RDW Coefficient of Variation 14.0 11.5-14.5 % Platelet Count 190 130-400 K/uL Mean Platelet Volume 10.5 7.4-10.4 fL Nucleated RBC Absolute Count (auto) 0.03 0-0 K/uL Nucleated Red Blood Cells % 0.4 % Creatinine 1.60 0.60-1.40 mg/dl Est Creatinine Clear Calc Drug Dose 34.2 ml/min Estimated GFR () 44.6 Estimated GFR (Non- 38.4 Test 04/07/16 06:25 Range/Units Bedside Glucose 121 70-99 mg/dl
--- NOTE | 2016-04-07 11:14 | DIAGNOSTIC IMAGING REPORT ---
CHEST ONE VIEW PORTABLE CLINICAL HISTORY: congestion/infiltrate dyspnea COMPARISON STUDY: 04/05/2016 FINDINGS: Stable findings of pulmonary edema. Unchanging atelectatic and/or consolidative change at both lung bases. Heart remains moderately enlarged. IMPRESSION: Unchanged study radiographically. Pulmonary edema with bilateral pleural effusions and basilar consolidative change Electronically signed by: Jonnie Lemon M.D. 04/07/2016 11:12 AM
[2016-04-07 11:15] VITALS: BP 136/74; PULSE 77; TEMP 36.4; O2SAT 97
[2016-04-07] MEDS ORDERED: LEVOFLOXACIN CONSULT ACTIVE PRN (11:15)
--- NOTE | 2016-04-07 11:42 | Pharmacy Progress Note ---
Glycemic: Assessment & Plan Date of Service Apr 07, 2016. Assessment & Plan * Patient's BSGs are well-controlled on current inpatient DM regimen. Pt with minimal insulin needs. No basal insulin necessary. * Continue current inpatient regimen. * Will need to assess kidney function prior to recommending pt restart Metformin upon discharge. * Kidney function recently diminished (Crcl < 35 ml/min). CONTINUE: * Basal insulin: none * Correctional Insulin: Novolog Correction per scale ACHS Goal Range: Low 140 mg/dL - High 180 mg/dL Continue - Correction Factor: 30 mg/dL/unit * Prandial insulin: Continue - Per carb ratio of 1 unit per 15 grams CHO consumed BSGs continue to improve, no changes needed to inpatient regimen at this time. Pharmacy will continue to monitor patient daily and write orders per [facility] inpatient glycemic control protocol. Thanks. * Please note that the plan above was derived based on current level of insulin resistance and hospital stress. These recommendations are appropriate for inpatient admission only. Plan of care upon discharge will need to be reassessed to avoid potential outpatient hypo/hyperglycemia.
[2016-04-07] MEDS: LEVOFLOXACIN 750 MG TAB PO SCH (13:02)
[2016-04-07] MEDS: LACTOBACILLUS ACIDOPHILUS (FLORANEX) TAB PO SCH ×2 (13:03→16:54)
[2016-04-07 15:49] VITALS: BP 139/69; PULSE 72; TEMP 36.3; O2SAT 95
[2016-04-07 19:59] VITALS: BP 112/71; PULSE 80; TEMP 36.4; O2SAT 97
[2016-04-07] MEDS: OSELTAMIVIR PHOSPHATE SUSP 30 MG/5 ML UDP PO SCH (20:17)
[2016-04-07] MEDS: ENOXAPARIN 30 MG/0.3 ML SYR SC SCH (20:18)
[2016-04-07 23:52] VITALS: BP 133/80; PULSE 81; TEMP 36.3; O2SAT 94
[2016-04-08] VITALS (9 sets, daily range): BP systolic 136–151; BP diastolic 72–87; PULSE 80–96; TEMP 35.9–36.5; O2SAT 94–99
[2016-04-08] MEDS: LEVOTHYROXINE 75 MCG TAB PO SCH (04:19)
[2016-04-08 06:34] LABS: BASO % 0.5 %; BASO ABS # 0.04 K/uL (0-0.2); COMPLETE YES; EOS % 0.7 %; HEMATOCRIT 46.8 % (42-52); IG% 0.5 %; LYMPH % 22.5 %; LYMPH ABS # 1.99 K/uL (1.2-3.4); MEAN CELL VOLUME 94.5 fL (80-100); MEAN CORPUSCULAR HEMOGLOBIN 31.3 pg (25-34); MEAN CORPUSCULAR HGB CONC 33.1 g/dl (32-36); MEAN PLATELET VOLUME 11.1 fL (7.4-10.4); MONO % 13.7 %; NEUT % 62.1 %; PLATELET COUNT 210 K/uL (130-400); RED BLOOD COUNT 4.95 M/uL (4.7-6.1); WHITE BLOOD COUNT 8.83 K/uL (4.8-10.8)
[2016-04-08 07:01] LABS: BUN/CREATININE RATIO 32.7 (10-20); CALCIUM 8.1 mg/dl (8.5-10.1); CREATININE 1.2 mg/dl (0.60-1.40); MAGNESIUM 2.4 mg/dl (1.8-2.4); POTASSIUM 4.3 mmol/L (3.5-5.1)
[2016-04-08] MEDS: ASPIRIN 81 MG ECTAB PO SCH (07:46)
[2016-04-08] MEDS: LACTOBACILLUS ACIDOPHILUS (FLORANEX) TAB PO SCH ×3 (07:46→18:17)
[2016-04-08] MEDS: LIDODERM (LIDOCAINE) PATCH 5% TD SCH (07:47)
[2016-04-08] MEDS: SPIRONOLACTONE 25 MG TAB PO SCH (07:47)
[2016-04-08] MEDS: FUROSEMIDE 20 MG TAB PO SCH (07:48)
[2016-04-08] MEDS: METOPROLOL SUCC 25MG EXT REL TAB PO SCH (07:48)
[2016-04-08] MEDS: INSULIN ASPART 100 UNITS/ML 3 ML PEN SC SCH ×4 (07:52→20:59)
[2016-04-08] MEDS: OSELTAMIVIR PHOSPHATE SUSP 30 MG/5 ML UDP PO SCH ×2 (07:53→20:59)
[2016-04-08] MEDS ORDERED: LISINOPRIL 2.5 MG TAB PO ONE (09:14)
--- NOTE | 2016-04-08 10:23 | Cardiology Follow-Up ---
Subjective Subjective Date of Service: Apr 08, 2016. Pt evaluation today including: conversation w/ patient, conversation w/ family , physical exam, chart review, lab review, review of studies, review of inpatient medication list Additional Details: Pt seen and examined, with daughter at bedside. States that he's feeling run down. Ambulated very well in hallway yesterday. Denies cp, sob, palpitations, lightheadedness or dizziness. Tele reviewed: sinus rhythm without arrhythmia or significant ectopy. Problem List Medical Problems: (1) Elevated troponin Status: Acute (2) Heart failure Status: Acute (3) Pneumonia Status: Acute (4) Sepsis Status: Acute Review of Systems Constitutional: + fatigue, + weakness, No chills, No fever ENT: + hearing loss (patient's norm) Respiratory: + cough, + dyspnea on exertion, + shortness of breath, No dyspnea at rest, No sputum Cardiac: + edema (much improved), No chest pain, No palpitations Abdomen: No diarrhea, No nausea, No pain, No vomiting Male : No problem reported Objective Vital Signs Last Vital Signs Documentation Date Time Temp Pulse Resp B/P Pulse Ox O2 Delivery O2 Flow Rate FiO2 04/08/16 08:06 36.4 84 18 151/87 97 Nasal Cannula 3.0 Physical Exam: General Appearance: WD/WN, no apparent distress, + cachetic, + thin Eyes: bilateral eyes EOMI, bilateral eyes PERRL, bilateral eyes normal inspection ENT: normal ENT inspection, pharynx normal, + pertinent finding (hard of hearing) Neck: supple, no adenopathy, thyroid normal, no JVD, trachea midline Respiratory/Chest: chest non-tender, lungs clear, normal breath sounds, no respiratory distress, no accessory muscle use, + decreased breath sounds ( bilateral bases), + crackles (bilateral bases, coarse), + wheezing (expiratory) Cardiovascular: regular rate, rhythm, no JVD, + systolic murmur, + gallop/S4, + pertinent finding (trace pitting edema of bilateral lower extremities) Abdomen: normal bowel sounds, non tender, soft, no organomegaly, no pulsatile mass Extremities: normal inspection, no pedal edema, no calf tenderness Neurologic/Psychiatric: last dipper II-XII nml as tested, no motor/sensory deficits, alert, normal mood/affect, oriented x 3 Skin: normal color, warm/dry, no rash Lymphatic: no adenopathy Assessment and Plan 1. cardiomyopathy newly discovered no sign of active ischemia evidence beta tamanna initiated clinically greatly improved today lasix and spironolactone started bp up, will now start low dose lisinopril bmp in 1 week cardiology f/u in 1 month 2. acute systolic heart failure does not examine as volume overloaded follow K 3. moderate to severe MR also likely playing role in volume overload not a surgical candidate after discussing with daughter ok to d/c to rehab from cardiac standpoint
--- NOTE | 2016-04-08 11:11 | Progress Note ---
Internal Med Progress Note Date of Service: Apr 08, 2016. Provider Documentation: SUBJECTIVE: resting comfortably diarrhea improved sob getting better has some cough afebrile no nausea ate some breakfast OBJECTIVE: Vital Signs-as noted below Exam: General-alert and oriented x 3 ENT-normal hearing Neck-no neck masses Lungs-cta b/l no wheezing or crackles Heart-s1 and s2 heard regular rate and rhythm, no murmurs Abdomen-soft bowel sounds present non tender no distension Extremities-pedal edema present no erythema Neuro-alert and awake moves extremities Lab data as noted below. ASSESSMENT & PLAN: 85 yo M with hypertension and no known heart disease presents to the ER with sepsis 2/2 pneumonia 1. Sepsis 2/2 pneumonia/flu- was started on vanco and Zosyn and Tamiflu vanco stopped as mrsa swab negative Added azithromycin BP on lower side off of fluids secondary to chf Currently on PO LEVAQUIN stable 2. Poor systolic function (EF 25%)- new finding cardiology started on Toprol xl lisinopril on hold for low BP and ARF. cardiology started on po lasix and on spironolactone plan for cardiac cath once pneumonia is treated stable pt/ot. 3. Hypoxia 2/2 #1 and #2. On nasal canula. If worsens will place on bipap. 4. elevated troponin mild from above will monitor. 5. ARF from sepsis, abx? had lasix yesterday? stopping vancomycin resolved cr 12 today will f/u labs 6. LE edema- has some. On diuretics 7. Hypertension-. started on low dose toprol xl , lisinopril and diuretic.. Will monitor. 8. 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 Appreciate pharmacy inputs. Will monitor. 9. Chronic back pain 2/2 known degenerative disease-on Nucynta at 1700. 10. Hypothyroidism-cont home Synthroid at 75mcg PO daily 11. chronic constipation-resolved - Nutrition-ADA diet DVT proph-Lovenox 30 Disposition: transfer to medical floor pt/ot plan for rehab social service for d/c planning Vital Signs: Date Time Temp Pulse Resp B/P Pulse Ox O2 Delivery O2 Flow Rate FiO2 04/08/16 10:57 36.4 84 18 97 3.0 04/08/16 08:06 36.4 84 18 151/87 97 Nasal Cannula 3.0 04/08/16 08:00 95 Nasal Cannula 3.0 04/08/16 04:00 Nasal Cannula 04/08/16 03:21 35.9 82 22 140/84 95 Nasal Cannula 3.5 04/07/16 23:59 Nasal Cannula 04/07/16 23:52 36.3 81 21 133/80 94 Nasal Cannula 3.5 04/07/16 20:00 Nasal Cannula 04/07/16 19:59 36.4 80 22 112/71 97 4.0 04/07/16 16:00 Nasal Cannula 2.0 04/07/16 15:49 36.3 72 22 139/69 95 Nasal Cannula 4.0 04/07/16 12:00 Nasal Cannula 2.0 04/07/16 11:15 36.4 77 20 136/74 97 Nasal Cannula 4.0 Lab Results: Results Past 24 Hours Test 04/07/16 11:29 04/07/16 16:05 04/07/16 20:14 04/08/16 05:59 Range/Units Bedside Glucose 160 141 150 70-99 mg/dl White Blood Count 8.83 4.8-10.8 K/uL Red Blood Count 4.95 4.7-6.1 M/uL Hemoglobin 15.5 14.0-18.0 g/dL Hematocrit 46.8 42-52 % Mean Corpuscular Volume 94.5 80-100 fL Mean Corpuscular Hemoglobin 31.3 25-34 pg Mean Corpuscular Hemoglobin Concent 33.1 32-36 g/dl Platelet Count 210 130-400 K/uL Mean Platelet Volume 11.1 7.4-10.4 fL Neutrophils (%) (Auto) 62.1 % Lymphocytes (%) (Auto) 22.5 % Monocytes (%) (Auto) 13.7 % Eosinophils (%) (Auto) 0.7 % Basophils (%) (Auto) 0.5 % Neutrophils # (Auto) 5.49 1.4-6.5 K/uL Lymphocytes # (Auto) 1.99 1.2-3.4 K/uL Monocytes # (Auto) 1.21 0.11-0.59 K/uL Eosinophils # (Auto) 0.06 0-0.5 K/uL Basophils # (Auto) 0.04 0-0.2 K/uL RDW Standard Deviation 47.1 36.4-46.3 fL RDW Coefficient of Variation 13.8 11.5-14.5 % Immature Granulocyte % (Auto) 0.5 % Immature Granulocyte # (Auto) 0.04 0.00-0.02 K/uL Nucleated RBC Absolute Count (auto) 0.02 0-0 K/uL Nucleated Red Blood Cells % 0.2 % Sodium Level 135 136-145 mmol/L Potassium Level 4.3 3.5-5.1 mmol/L Chloride Level 97 98-107 mmol/L Carbon Dioxide Level 31 21-32 mmol/L Anion Gap 7.0 3-11 mmol/L Blood Urea Nitrogen 39 7-18 mg/dl Creatinine 1.20 0.60-1.40 mg/dl Est Creatinine Clear Calc Drug Dose 45.6 ml/min Estimated GFR () 63.1 Estimated GFR (Non- 54.4 BUN/Creatinine Ratio 32.7 10-20 Random Glucose 155 70-99 mg/dl Calcium Level 8.1 8.5-10.1 mg/dl Magnesium Level 2.4 1.8-2.4 mg/dl Test 04/08/16 06:47 04/08/16 10:48 Range/Units Bedside Glucose 150 169 70-99 mg/dl Microbiology Results 04/08/16 C.difficile Toxin B Gene (PCR) - Final, Complete No C. difficile toxin B gene detected
--- NOTE | 2016-04-08 12:41 | Pharmacy Progress Note ---
Glycemic: Assessment & Plan Date of Service Apr 08, 2016. Assessment & Plan The patient is currently receiving ~ 10 units of prandial/correctional insulin per day. BSGs ranging 121 - 169 mg/dl over the past 24hrs. No changes have been made to insulin regimen over the past several days. BSGs continue to improve, no changes needed to inpatient regimen at this time. Pharmacy is signing off of glycemic consult. Please feel free to re-consult if needed. Thank you. Pt is currently ordered: * Basal insulin: NONE * Correctional Insulin: Novolog Correction per scale ACHS Goal Range: Low 140 mg/dL - High 180 mg/dL Correction Factor: 30 mg/dL/unit * Prandial insulin: Per carb ratio of 1 unit per 15 grams CHO consumed * Please note that the plan above was derived based on current level of insulin resistance and hospital stress. These recommendations are appropriate for inpatient admission only. Plan of care upon discharge will need to be reassessed to avoid potential outpatient hypo/hyperglycemia.
[2016-04-08] MEDS: ENOXAPARIN 30 MG/0.3 ML SYR SC SCH (20:59)
[2016-04-09] MEDS: LEVOTHYROXINE 75 MCG TAB PO SCH (06:34)
[2016-04-09 07:12] LABS: BASO % 0.3 %; BASO ABS # 0.03 K/uL (0-0.2); COMPLETE YES; EOS % 0.4 %; HEMATOCRIT 45.3 % (42-52); IG% 0.6 %; LYMPH % 18.6 %; LYMPH ABS # 1.81 K/uL (1.2-3.4); MEAN CELL VOLUME 94.4 fL (80-100); MEAN CORPUSCULAR HGB CONC 31.8 g/dl (32-36); MEAN PLATELET VOLUME 10.7 fL (7.4-10.4); MONO % 15.2 %; NEUT % 64.9 %; PLATELET COUNT 219 K/uL (130-400); WHITE BLOOD COUNT 9.75 K/uL (4.8-10.8)
[2016-04-09 07:21] VITALS: BP 143/88; PULSE 91; TEMP 36.5; O2SAT 95
[2016-04-09] MEDS: LEVOFLOXACIN 750 MG TAB PO SCH (07:39)
[2016-04-09] MEDS: LACTOBACILLUS ACIDOPHILUS (FLORANEX) TAB PO SCH ×3 (07:39→16:59)
[2016-04-09] MEDS: METOPROLOL SUCC 25MG EXT REL TAB PO SCH (07:39)
[2016-04-09] MEDS: SPIRONOLACTONE 25 MG TAB PO SCH (07:40)
[2016-04-09] MEDS: LIDODERM (LIDOCAINE) PATCH 5% TD SCH (07:40)
[2016-04-09] MEDS: LISINOPRIL 2.5 MG TAB PO SCH (07:40)
[2016-04-09] MEDS: FUROSEMIDE 20 MG TAB PO SCH (07:40)
[2016-04-09] MEDS: ASPIRIN 81 MG ECTAB PO SCH (07:40)
[2016-04-09 07:44] LABS: BUN/CREATININE RATIO 28.3 (10-20); CALCIUM 8.3 mg/dl (8.5-10.1); CREATININE 0.79 mg/dl (0.60-1.40); MAGNESIUM 2.1 mg/dl (1.8-2.4); POTASSIUM 4.2 mmol/L (3.5-5.1)
[2016-04-09] MEDS: OSELTAMIVIR PHOSPHATE SUSP 30 MG/5 ML UDP PO SCH (07:50)
[2016-04-09] MEDS: INSULIN ASPART 100 UNITS/ML 3 ML PEN SC SCH ×4 (09:53→22:00)
[2016-04-09 15:04] VITALS: BP 117/70; PULSE 84; TEMP 36.6; O2SAT 96
[2016-04-09] MEDS ORDERED: FUROSEMIDE INJ 20 MG in SYRINGE 0 ML IV ONE (17:00)
--- NOTE | 2016-04-09 18:44 | Progress Note ---
Internal Med Progress Note Date of Service: Apr 09, 2016. Provider Documentation: SUBJECTIVE: Sitting on the chair comfortably cough is better still has diarrhea denies any pain OBJECTIVE: Vital Signs-as noted below Exam: General-alert and oriented x 3 ENT-normal hearing Neck-no neck masses Lungs-cta b/l no wheezing or crackles Heart-s1 and s2 heard regular rate and rhythm, no murmurs Abdomen-soft bowel sounds present non tender no distension Extremities-pedal edema present no erythema Neuro-alert and awake moves extremities Lab data as noted below. ASSESSMENT & PLAN: 85 yo M with hypertension and no known heart disease presents to the ER with sepsis 2/2 pneumonia 1. Sepsis 2/2 pneumonia/flu- was started on vanco and Zosyn and Tamiflu vanco stopped as mrsa swab negative Added azithromycin BP on lower side off of fluids secondary to chf Currently on PO LEVAQUIN stable pt/ot await placement 2. Poor systolic function (EF 25%)- new finding cardiology started on Toprol xl lisinopril on hold for low BP and ARF. cardiology started on po lasix and on spironolactone plan for cardiac cath once pneumonia is treated some edema in lower extremity-will give one dose of iv Lasix stable pt/ot. 3. Hypoxia 2/2 #1 and #2. On nasal canula. If worsens will place on bipap. 4. elevated troponin mild from above will monitor. 5. ARF from sepsis, abx? had lasix yesterday? stopping vancomycin resolved cr 0.7 today will f/u labs 6. LE edema- has some. On diuretics. ad dose of iv Lasix today 7. Hypertension-. started on low dose toprol xl , lisinopril and diuretic.. Will monitor. 8. 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 Appreciate pharmacy inputs. Will monitor. 9. Chronic back pain 2/2 known degenerative disease-on Nucynta at 1700. 10. Hypothyroidism-cont home Synthroid at 75mcg PO daily 11. chronic constipation-resolved - Nutrition-ADA diet DVT proph-Lovenox 30 Disposition: transfer to medical floor pt/ot plan for rehab social service for d/c planning Vital Signs: Date Time Temp Pulse Resp B/P Pulse Ox O2 Delivery O2 Flow Rate FiO2 04/09/16 16:15 Nasal Cannula 2.0 04/09/16 15:04 36.6 84 18 117/70 96 Nasal Cannula 2.0 04/09/16 08:00 Nasal Cannula 2.0 04/09/16 07:21 36.5 91 18 143/88 95 Nasal Cannula 2.0 04/09/16 01:59 Nasal Cannula 2.0 04/08/16 23:05 36.5 96 16 138/78 94 Nasal Cannula 2.0 04/08/16 20:00 96 Nasal Cannula 2.0 Lab Results: Results Past 24 Hours Test 04/08/16 20:42 04/09/16 06:40 04/09/16 07:33 04/09/16 11:17 Range/Units Bedside Glucose 147 135 193 70-99 mg/dl White Blood Count 9.75 4.8-10.8 K/uL Red Blood Count 4.80 4.7-6.1 M/uL Hemoglobin 14.4 14.0-18.0 g/dL Hematocrit 45.3 42-52 % Mean Corpuscular Volume 94.4 80-100 fL Mean Corpuscular Hemoglobin 30.0 25-34 pg Mean Corpuscular Hemoglobin Concent 31.8 32-36 g/dl Platelet Count 219 130-400 K/uL Mean Platelet Volume 10.7 7.4-10.4 fL Neutrophils (%) (Auto) 64.9 % Lymphocytes (%) (Auto) 18.6 % Monocytes (%) (Auto) 15.2 % Eosinophils (%) (Auto) 0.4 % Basophils (%) (Auto) 0.3 % Neutrophils # (Auto) 6.33 1.4-6.5 K/uL Lymphocytes # (Auto) 1.81 1.2-3.4 K/uL Monocytes # (Auto) 1.48 0.11-0.59 K/uL Eosinophils # (Auto) 0.04 0-0.5 K/uL Basophils # (Auto) 0.03 0-0.2 K/uL RDW Standard Deviation 47.5 36.4-46.3 fL RDW Coefficient of Variation 13.8 11.5-14.5 % Immature Granulocyte % (Auto) 0.6 % Immature Granulocyte # (Auto) 0.06 0.00-0.02 K/uL Sodium Level 139 136-145 mmol/L Potassium Level 4.2 3.5-5.1 mmol/L Chloride Level 101 98-107 mmol/L Carbon Dioxide Level 33 21-32 mmol/L Anion Gap 5.0 3-11 mmol/L Blood Urea Nitrogen 22 7-18 mg/dl Creatinine 0.79 0.60-1.40 mg/dl Est Creatinine Clear Calc Drug Dose 69.3 ml/min Estimated GFR () 94.2 Estimated GFR (Non- 81.3 BUN/Creatinine Ratio 28.3 10-20 Random Glucose 148 70-99 mg/dl Calcium Level 8.3 8.5-10.1 mg/dl Magnesium Level 2.1 1.8-2.4 mg/dl Test 04/09/16 16:31 Range/Units Bedside Glucose 83 70-99 mg/dl
[2016-04-09] MEDS: ENOXAPARIN 30 MG/0.3 ML SYR SC SCH (20:20)
[2016-04-10 00:03] VITALS: BP 144/85; PULSE 98; TEMP 36.6; O2SAT 92
[2016-04-10] MEDS: LEVOTHYROXINE 75 MCG TAB PO SCH (06:30)
[2016-04-10 07:21] VITALS: BP 147/82; PULSE 93; TEMP 36.4; O2SAT 98
[2016-04-10] MEDS: LIDODERM (LIDOCAINE) PATCH 5% TD SCH ×2 (08:00→08:43)
[2016-04-10] MEDS: LACTOBACILLUS ACIDOPHILUS (FLORANEX) TAB PO SCH ×2 (08:40→12:00)
[2016-04-10] MEDS: SPIRONOLACTONE 25 MG TAB PO SCH (08:41)
[2016-04-10] MEDS: ASPIRIN 81 MG ECTAB PO SCH (08:42)
[2016-04-10] MEDS: METOPROLOL SUCC 25MG EXT REL TAB PO SCH (08:43)
[2016-04-10] MEDS: LISINOPRIL 2.5 MG TAB PO SCH (08:44)
[2016-04-10] MEDS: FUROSEMIDE 20 MG TAB PO SCH (08:44)
[2016-04-10 08:47] LABS: BASO % 0.3 %; BASO ABS # 0.03 K/uL (0-0.2); COMPLETE YES; EOS % 0.4 %; HEMATOCRIT 46.8 % (42-52); IG% 0.9 %; LYMPH % 16.4 %; LYMPH ABS # 1.86 K/uL (1.2-3.4); MEAN CELL VOLUME 95.7 fL (80-100); MEAN CORPUSCULAR HEMOGLOBIN 30.5 pg (25-34); MEAN CORPUSCULAR HGB CONC 31.8 g/dl (32-36); MEAN PLATELET VOLUME 11.1 fL (7.4-10.4); MONO % 12.9 %; NEUT % 69.1 %; PLATELET COUNT 238 K/uL (130-400); RED BLOOD COUNT 4.89 M/uL (4.7-6.1); WHITE BLOOD COUNT 11.32 K/uL (4.8-10.8)
[2016-04-10] MEDS: INSULIN ASPART 100 UNITS/ML 3 ML PEN SC SCH ×2 (08:52→12:33)
[2016-04-10 09:07] LABS: BUN/CREATININE RATIO 16.9 (10-20); CALCIUM 8.8 mg/dl (8.5-10.1); CREATININE 0.77 mg/dl (0.60-1.40); MAGNESIUM 1.9 mg/dl (1.8-2.4); POTASSIUM 4.7 mmol/L (3.5-5.1)
[2016-04-10] MEDS ORDERED: LEVOFLOXACIN 750 MG TAB PO SCH (11:00)
[2016-04-10] MEDS ORDERED: LSN25 PO (12:22)
[2016-04-10] MEDS ORDERED: TAPE50TA PO (12:22)
[2016-04-10] MEDS ORDERED: LVQ750 PO (12:22)
[2016-04-10] MEDS ORDERED: TPRSR25 PO (12:22)
[2016-04-10] MEDS ORDERED: SPR25 PO (12:22)
[2016-04-10] MEDS ORDERED: LSX20 PO (12:22)
--- NOTE | 2016-04-10 12:27 | Discharge Instructions ---
Discharge Instructions Admission Reason for Admission: Community Acquired Pneumonia, Sepsis Discharge Discharge Diagnosis / Problem: pneumonia, infulenza A, CHF Discharge Goals Goal(s): Decrease discomfort, Improve function Activity Recommendations Activity Level: Assistance Required Therapies: Physical Therapy, Occupational Therapy . Additional Information Patient informed of condition: Yes Advance Directives: Yes DNR: Yes Level of Care: Acute Rehab Communicable Disease: No Prognosis: Stable Oxygen at (LPM): 2-3lts via nasal canuls. try to wean off oxygen Gomes Catheter: No Instructions / Follow-Up Instructions / Follow-Up FOLLOWUP WITH FAMILY DOCTOR ONE WEEK ON DISCHARGE. FOLLOWUP WITH CARDIOLOGY IN 1-2 WEEKS ON DISCHARGE FROM REHAB. BLOOD PRESSURE FOLLOWUP WITH FAMILY DOCTOR AND CARDIOLOGY. DIABETES FOLLOWUP WITH FAMILY DOCTOR. LAB: BMP WITH MG LEVELS IN ONE WEEK AND FOLLOW RESULTS WITH FAMILY DOCTOR( STARTED ON ALDACTONE). Current Hospital Diet Patient's current hospital diet: Diabetes Type 2 Diet, AHA Diet (Heart Healthy) Discharge Diet Recommended Diet: AHA Diet (Heart Healthy), Diabetes Type 2 Diet Pending Studies Studies pending at discharge: no Physician Orders On Transfer Special Precautions: FALL AND ASPIRATION PRECAUTIONS Vital Signs: EVERY 8HRS Additional Orders: Call your Primary Care doctor if any of the following symptoms or problems start or get worse: * Shortness of breath or difficulty breathing * Wake up at night short of breath * Chest pain * Cough * Swelling of your hands, feet, or legs * More fatigued or tired with your normal activity * Palpitations - sudden fast heart beats WEIGHT * Weigh yourself every morning after using the bathroom. * Use the same scale. * Wear the same amount of clothing. * Write your weight down on a chart. * Call your Primary Care doctor if you gain more than 2-3 pounds in 1-2 days. MEDICATIONS * Use this discharge instruction sheet for medication instructions. * Take your medications at the time your doctor ordered. * Do not skip a dose of your medicines. * If you miss a dose of medicine, take it as soon as possible, but DO NOT DOUBLE A DOSE. * Read your medicine information when you get home. * Know all of the side effects of your medicine. If in doubt, ask your pharmacist * Call your Primary Care doctor's office if you have any side effects. * Be sure all of your doctors know what medicine and herbs you take (including cold, flu, and herbal medicine). Take the following with you to your follow-up doctor appointments: * Weight Chart * Medication List * List of questions Do not drink excessive alcohol, beer or wine. Laboratory Results Hemoglobin A1c Test 04/03/16 03:21 Range/Units Estimated Average Glucose 163 mg/dl Hemoglobin A1c 7.3 H 4.5-5.6 % Lipid Panel Test 04/03/16 03:21 Range/Units Triglycerides Level 77 0-150 mg/dl Cholesterol Level 126 0-200 mg/dl HDL Cholesterol 51 mg/dl Cholesterol/HDL Ratio 2.5 LDL Cholesterol, Calculated 60 mg/dl Medical Emergencies . Who to Call and When: Medical Emergencies: If at any time you feel your situation is an emergency, please call 911 immediately. . Non-Emergent Contact Non-Emergency issues call your: Primary Care Provider . . "Provider Documentation" section prepared by Scott Sparks. Core Measure Problem Core Measures: None
[2016-04-10 12:33] VITALS: BP 147/82; PULSE 93; TEMP 36.4; O2SAT 98
--- NOTE | 2016-04-10 18:59 | Progress Note ---
Internal Med Progress Note Date of Service: Apr 10, 2016. Provider Documentation: SUBJECTIVE: Sitting on the chair comfortably DIARRHEA BETTER COUGH IMPROVED EATING [place] FOR REHAB OBJECTIVE: Vital Signs-as noted below Exam: General-alert and oriented x 3 ENT-normal hearing Neck-no neck masses Lungs-cta b/l no wheezing or crackles Heart-s1 and s2 heard regular rate and rhythm, no murmurs Abdomen-soft bowel sounds present non tender no distension Extremities-pedal edema present no erythema Neuro-alert and awake moves extremities Lab data as noted below. ASSESSMENT & PLAN: 85 yo M with hypertension and no known heart disease presents to the ER with sepsis 2/2 pneumonia 1. Sepsis 2/2 pneumonia/flu- was started on vanco and Zosyn and Tamiflu vanco stopped as mrsa swab negative Added azithromycin BP on lower side off of fluids secondary to chf Currently on PO LEVAQUIN stable pt/ot discharged to rehab 2. Poor systolic function (EF 25%)- new finding cardiology started on Toprol xl lisinopril on hold for low BP and ARF. cardiology started on po lasix and on spironolactone plan for cardiac cath once pneumonia is treated some edema in lower extremity- d/gracie o Toprol xL, lisinopril, Lasix and Aldactone f/u with pcp and cardiology f/u labs with pcp. 3. Hypoxia 2/2 #1 and #2. On nasal canula. If worsens will place on bipap. 4. elevated troponin mild from above will monitor. 5. ARF from sepsis, abx? had lasix yesterday? stopping vancomycin resolved cr 0.7 today 6. LE edema- has some. On diuretics. ad dose of iv Lasix yesterday 7. Hypertension-. started on low dose toprol xl , lisinopril and diuretic.. Will monitor.f/u with pcp 8. 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 Appreciate pharmacy inputs. Will monitor.d/c on home meds f/u with pcp 9. Chronic back pain 2/2 known degenerative disease-on Nucynta at 1700. 10. Hypothyroidism-cont home Synthroid at 75mcg PO daily 11. chronic constipation-resolved - Nutrition-ADA diet discharged to rehab Vital Signs: Date Time Temp Pulse Resp B/P Pulse Ox O2 Delivery O2 Flow Rate FiO2 1/8/17 12:33 36.4 93 18 98 Nasal Cannula 04/10/16 08:00 Nasal Cannula 3.0 04/10/16 07:21 36.4 93 18 147/82 98 Nasal Cannula 3.0 04/10/16 00:03 36.6 98 20 144/85 92 Room Air 04/10/16 00:00 Nasal Cannula 2.0 04/09/16 20:00 Nasal Cannula 2.0 Lab Results: Results Past 24 Hours Test 04/09/16 19:56 04/10/16 07:35 04/10/16 08:22 04/10/16 11:42 Range/Units Bedside Glucose 190 136 159 70-99 mg/dl White Blood Count 11.32 4.8-10.8 K/uL Red Blood Count 4.89 4.7-6.1 M/uL Hemoglobin 14.9 14.0-18.0 g/dL Hematocrit 46.8 42-52 % Mean Corpuscular Volume 95.7 80-100 fL Mean Corpuscular Hemoglobin 30.5 25-34 pg Mean Corpuscular Hemoglobin Concent 31.8 32-36 g/dl Platelet Count 238 130-400 K/uL Mean Platelet Volume 11.1 7.4-10.4 fL Neutrophils (%) (Auto) 69.1 % Lymphocytes (%) (Auto) 16.4 % Monocytes (%) (Auto) 12.9 % Eosinophils (%) (Auto) 0.4 % Basophils (%) (Auto) 0.3 % Neutrophils # (Auto) 7.82 1.4-6.5 K/uL Lymphocytes # (Auto) 1.86 1.2-3.4 K/uL Monocytes # (Auto) 1.46 0.11-0.59 K/uL Eosinophils # (Auto) 0.05 0-0.5 K/uL Basophils # (Auto) 0.03 0-0.2 K/uL RDW Standard Deviation 49.0 36.4-46.3 fL RDW Coefficient of Variation 14.1 11.5-14.5 % Immature Granulocyte % (Auto) 0.9 % Immature Granulocyte # (Auto) 0.10 0.00-0.02 K/uL Sodium Level 139 136-145 mmol/L Potassium Level 4.7 3.5-5.1 mmol/L Chloride Level 98 98-107 mmol/L Carbon Dioxide Level 36 21-32 mmol/L Anion Gap 5.0 3-11 mmol/L Blood Urea Nitrogen 13 7-18 mg/dl Creatinine 0.77 0.60-1.40 mg/dl Est Creatinine Clear Calc Drug Dose 71.1 ml/min Estimated GFR () 95.2 Estimated GFR (Non- 82.2 BUN/Creatinine Ratio 16.9 10-20 Random Glucose 146 70-99 mg/dl Calcium Level 8.8 8.5-10.1 mg/dl Magnesium Level 1.9 1.8-2.4 mg/dl
--- NOTE | 2016-04-10 19:10 | Discharge Summary ---
Discharge Summary Admission Date: Apr 02, 2016 at 19:34 Discharge Date: Apr 10, 2016 Discharge Disposition: Rehab Principal Diagnosis: PNEUMONIA FLU ACUTE SYSTOLIC CHF ARF Secondary Diagnoses/Problems: 1) Abdominal aortic aneurysm (AAA) 3.0 cm to 5.5 cm in diameter in male Status: Chronic (2) Bladder cancer Status: Chronic (3) Chronic back pain Status: Chronic (4) Chronic lower back pain Status: Chronic (5) Diabetes Status: Chronic (6) Diabetic retinopathy Status: Chronic (7) Hypertension Status: Chronic (8) Hypothyroidism Status: Chronic (9) Osteoarthritis, shoulder Status: Chronic (10) Prostate cancer Status: Chronic Procedures: CTA CHEST: 1. Technically limited study secondary to motion artifact 2. No central pulmonary emboli identified 3. Multifocal bilateral nodular airspace opacities, likely infectious/inflammatory. Given the peripheral nature of the pulmonary abnormalities, the sequela of septic emboli cannot be excluded with certainty. Short-term Imaging follow-up is recommended 4. Cholelithiasis 5. Small bilateral pleural effusions 6. Mild mediastinal lymphadenopathy VENOUS DOPPLER: : No evidence of lower extremity DVT. ECHO:Normal LV chamber size with mild concentric LVH. * Severely reduced LV systolic function with severe global hypokinesis, EF 25 -30%. * Grade I diastolic dysfunction. * Aortic valve sclerosis moderate, without significant aortic valvular stenosis. * Moderate to severe mitral regurgitation. * Normal left atrial size. Consultations: CARDIOLOGY Medication Reconciliation New Medications: Levofloxacin (Levofloxacin) 750 Mg Tab 750 MG PO DAILY@1100 for 2 Days, TAB Lisinopril (Lisinopril) 2.5 Mg Tab 2.5 MG PO QAM, #30 TAB 2 Refills Metoprolol Succinate (Metoprolol Succinate ER) 25 Mg Tabcr 12.5 MG PO QAM, #30 2 Refills Spironolactone (Spironolactone) 25 Mg Tab 12.5 MG PO QAM, #30 TAB 2 Refills Continued Medications: Albuterol Hfa (Ventolin Hfa) Unknown Strength Aers 2 PUFFS PO Q4 PRN for SOB/Wheezing, #18 Aspirin (Aspirin Ec) 81 Mg Tab 81 MG PO DAILY Furosemide (Furosemide) 20 Mg Tab 20 MG PO DAILY, #30 2 Refills (This prescription has been renewed) Glipizide (Glipizide) 10 Mg Tab 10 MG PO BID Levothyroxine Sodium (Synthroid) 75 Mcg Tab 75 MCG PO DAILY, TAB Metformin HCl (Metformin HCl) 500 Mg Tab 500 MG PO BID, #180 Probiotic Product (Probiotic) 1 Cap Cap 1 CAP PO BID Sennosides-Docusate Sodium (Stool Softener) 1 Tab Tab 1 TAB PO DAILY PRN for Constipation Tapentadol Hcl (Nucynta) 50 Mg Tab 50 MG PO DAILY for back pain , #15 (This prescription has been renewed) Discontinued Medications: Ibuprofen (Motrin) 600 Mg Tab 300 MG PO DAILY, TAB Lisinopril (Prinivil) 10 Mg Tab 10 MG PO DAILY, TAB Admission Information HPI (per Admitting provider): 85 yo M presented to the ER with complaints of shortness of breath and decreased exercise tolerance for the last few months, worse in the last week. Specifically, he has not been able to climb his basement stairs or walk far in the grocery store without stopping to catch his breath. ROS reveals coughing, + orthopnea and +PND and recent acute feet swelling. He denies headache, nausea, abdominal pain, vomiting, sore throat, recent travel, diarrhea, fever, chills. He states that his granddaughter was sick over the holidays. He was seen at [place] [facility] a week ago for this and was told he had an elevated troponin but that this was nothing to worry about. He was then seen by a Cardiology PA with [facility] who started him on a small dose of Lasix, which he has taken for the past three days, and ordered an TTE and an EKG. These records are not available to me to verify results. Physical Exam (per Admitting): GEN: WNWD, in no acute distress, no conversational dyspnea and not working to breathe, alert and appropriate HEENT: NC/AT, PERRL, normal sclerae NECK: no JVD, trachea midline CARDIO: tachy, S1/2 heard without m/g/r LUNGS: diffuse sparse rhonchi throughout, worse at bases, no wheezing or rales, good diaphragmatic excursion ABD: soft, non-tender, non-distended, no rebound or guarding, +BS EXTREMITY: RP and DP palpable 2+ bilat, 2+ pitting edema in bilateral extremities to lower carr, extremities are warm and well-perfused NEURO: CN 2-12 grossly intact, sensation intact throughout MUSC: 5/5 strength throughout, no gross focal deficits SKIN: warm and dry Hospital Course 85 yo M with hypertension and no known heart disease presents to the ER with sepsis 2/2 pneumonia 1. Sepsis 2/2 pneumonia/flu- was started on vanco and Zosyn and Tamiflu vanco stopped as mrsa swab negative Added azithromycin BP on lower side off of fluids secondary to chf Currently on PO LEVAQUIN stable pt/ot discharged to rehab 2. Poor systolic function (EF 25%)- new finding cardiology started on Toprol xl lisinopril on hold for low BP and ARF. cardiology started on po lasix and on spironolactone plan for cardiac cath once pneumonia is treated some edema in lower extremity- d/gracie o Toprol xL, lisinopril, Lasix and Aldactone f/u with pcp and cardiology f/u labs with pcp. 3. Hypoxia 2/2 #1 and #2. On nasal canula. If worsens will place on bipap. 4. elevated troponin mild from above will monitor. 5. ARF from sepsis, abx? had lasix yesterday? stopping vancomycin resolved cr 0.7 today 6. LE edema- has some. On diuretics. ad dose of iv Lasix yesterday 7. Hypertension-. started on low dose toprol xl , lisinopril and diuretic.. Will monitor.f/u with pcp 8. 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 Appreciate pharmacy inputs. Will monitor.d/c on home meds f/u with pcp 9. Chronic back pain 2/2 known degenerative disease-on Nucynta at 1700. 10. Hypothyroidism-cont home Synthroid at 75mcg PO daily 11. chronic constipation-resolved - Nutrition-ADA diet discharged to rehab Total time spent on discharge = 40MINUTES This includes examination of the patient, discharge planning, medication reconciliation, and communication with other providers. Discharge Instructions Discharge Instructions Admission Reason for Admission: Community Acquired Pneumonia, Sepsis Discharge Discharge Diagnosis / Problem: pneumonia, infulenza A, CHF Discharge Goals Goal(s): Decrease discomfort, Improve function Activity Recommendations Activity Level: Assistance Required Therapies: Physical Therapy, Occupational Therapy . Additional Information Patient informed of condition: Yes Advance Directives: Yes DNR: Yes Level of Care: Acute Rehab Communicable Disease: No Prognosis: Stable Oxygen at (LPM): 2-3lts via nasal canuls. try to wean off oxygen Gomes Catheter: No Instructions / Follow-Up Instructions / Follow-Up FOLLOWUP WITH FAMILY DOCTOR ONE WEEK ON DISCHARGE. FOLLOWUP WITH CARDIOLOGY IN 1-2 WEEKS ON DISCHARGE FROM REHAB. BLOOD PRESSURE FOLLOWUP WITH FAMILY DOCTOR AND CARDIOLOGY. DIABETES FOLLOWUP WITH FAMILY DOCTOR. LAB: BMP WITH MG LEVELS IN ONE WEEK AND FOLLOW RESULTS WITH FAMILY DOCTOR( STARTED ON ALDACTONE). CT CHEST WITH IV CONTRAST IN ONE MONTH FOR RESOLUTION OF LUNG OPACITIES Current Hospital Diet Patient's current hospital diet: Diabetes Type 2 Diet, AHA Diet (Heart Healthy) Discharge Diet Recommended Diet: AHA Diet (Heart Healthy), Diabetes Type 2 Diet Pending Studies Studies pending at discharge: no Physician Orders On Transfer Special Precautions: FALL AND ASPIRATION PRECAUTIONS Vital Signs: EVERY 8HRS Laboratory Results Hemoglobin A1c Test 04/03/16 03:21 Range/Units Estimated Average Glucose 163 mg/dl Hemoglobin A1c 7.3 H 4.5-5.6 % Lipid Panel Test 04/03/16 03:21 Range/Units Triglycerides Level 77 0-150 mg/dl Cholesterol Level 126 0-200 mg/dl HDL Cholesterol 51 mg/dl Cholesterol/HDL Ratio 2.5 LDL Cholesterol, Calculated 60 mg/dl Medical Emergencies . Who to Call and When: Medical Emergencies: If at any time you feel your situation is an emergency, please call 911 immediately. . Non-Emergent Contact Non-Emergency issues call your: Primary Care Provider . . "Provider Documentation" section prepared by Scott Sparks. Core Measure Problem Core Measures: None
[2016-11-12] MEDS ORDERED: LVQ500 PO (17:33)
[2016-11-13] MEDS ORDERED: LVQ500 PO (09:26)
== END 2016-04-10 13:10 | DRG 871 ==
LOC: ENRESERVTM → ENRESERVDT → C.EDB 15:21 → C.2T 19:34 → C.MS4W 04-08 11:08
PROVIDERS: ADMIT Hospitalist; ATTEND Internal Medicine
DX: A41.9 Sepsis, unspecified organism (principal); J18.9 Pneumonia, unspecified organism; I50.21 Acute systolic (congestive) heart failure; I42.9 Cardiomyopathy, unspecified; N17.9 Acute kidney failure, unspecified; I71.4 Abdominal aortic aneurysm, without rupture; E03.9 Hypothyroidism, unspecified; E83.42 Hypomagnesemia; E11.319 Type 2 diabetes mellitus with unspecified diabetic retinopathy without macular edema; G89.29 Other chronic pain; R09.02 Hypoxemia; Z79.4 Long term (current) use of insulin; R60.0 Localized edema; K59.00 Constipation, unspecified; Z51.5 Encounter for palliative care; I11.0 Hypertensive heart disease with heart failure; Z85.46 Personal history of malignant neoplasm of prostate; M19.019 Primary osteoarthritis, unspecified shoulder; Z83.3 Family history of diabetes mellitus; Z80.9 Family history of malignant neoplasm, unspecified; Z82.49 Family history of ischemic heart disease and other diseases of the circulatory system; Z87.891 Personal history of nicotine dependence; Z66 Do not resuscitate; M54.5 Low back pain; Z79.82 Long term (current) use of aspirin

== ENCOUNTER 2016-11-08 21:50 | Inpatient (IN) | payer OTHER, BC ==
[~2016-11-08] VITALS: Ht 182.9 cm; Wt 65.6 kg
[~2016-11-08 21:50] MED LIST changes: +ASPI81TA28 PO; -EPLE50TA3 PO; +GLC500 PO; -IBUP600T44 PO; -LISI10TA PO; +LSN25 PO; +LSX20 PO; +LVQ750 PO; +MISCCAP80 PO; +SENNTAB23 PO; -SITA100T3 PO; +SPR25 PO; +TAPE50TA PO; +TPRSR25 PO; +VNTHFA/IN PO
[2016-11-08] MEDS ORDERED: LSN25 PO (22:27)
[2016-11-08] MEDS ORDERED: FURO-85 PO (22:27)
[2016-11-08 22:28] LABS: BASO % 0.2 %; BASO ABS # 0.03 K/uL (0-0.2); COMPLETE YES; HEMATOCRIT 42.3 % (42-52); IG% 0.4 %; LYMPH % 13.9 %; LYMPH ABS # 2.68 K/uL (1.2-3.4); MEAN CELL VOLUME 97.7 fL (80-100); MEAN CORPUSCULAR HEMOGLOBIN 31.4 pg (25-34); MEAN CORPUSCULAR HGB CONC 32.2 g/dl (32-36); MEAN PLATELET VOLUME 10.2 fL (7.4-10.4); MONO % 10.5 %; PLATELET COUNT 351 K/uL (130-400); RED BLOOD COUNT 4.33 M/uL (4.7-6.1); WHITE BLOOD COUNT 19.34 K/uL (4.8-10.8)
--- NOTE | 2016-11-08 22:31 | EMERGENCY ROOM VISIT NOTE ---
History Report prepared by Cesilia: Devorah Whipple Under the Supervision of: Dr. Oneil Baugh M.D. First contact with patient: 22:10 Chief Complaint: CARDIAC ASSESSMENT Stated Complaint: SOB, TACHYCARDIA Nursing Triage Summary: Pt from [facility]. Per staff patient went out for ice cream, when came back patient appeared more SOB than normal. Pt 02was 88 on RA and HR in 150's, pt BP was elevated at time as well. Placed on 2L and sats went into 90s but HR continued to be high. Pt denies and denied any chest pain/sob/dizziness/weakness. History of Present Illness The patient is an 86 year old male who presents to the Emergency Room with complaints of increased shortness of breath that began this evening. The patient's daughter states that the patient was out this evening for ice cream and when he arrived back to the [facility] at [facility]. She states that the patient became increasingly weak when he was walking back to his room, and additionally became shaky. The patient's daughter states that the patient was found to be tachycardic, short of breath and had a low-grade fever. The patient denies any history of atrial fibrillation. He states that he felt increasingly fatigued today due to having two hours of therapy. The patient's daughter states that the patient fell last Monday at his stairs at home and had a small brain hemorrhage. She states that the patient additionally fractured his collarbone and was transferred to [place] for further treatment and care. The patient's daughter states that the patient has chronic lumbar back pain due to his arthritis. The patient states that he has had an intermittent cough, stating that he brings up white sputum. The patient's daughter states that since the patient was discharged for his fall he has been staying at the [facility]. She states that the patient has a history of heart failure. The patient denies any recent weight gain. He denies any burning with urination. The patient's daughter denies the patient being on supplemental nasal cannula oxygen at home. Source of History: patient, family (daughter) Onset: this evening Position: other (global) Quality: other (shortness of breath) Timing: other (increased) Associated Symptoms: + fevers, + cough, + fatigue, + weakness Note: Associated Symptoms: tachycardic, shaky Review of Systems See HPI for pertinent positives and negatives. A total of ten systems were reviewed and were otherwise negative. 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, shoulder (11) Pneumonia (12) Prostate cancer (13) Sepsis Family History Cancer Diabetes mellitus Heart disease Social History Smoking Status: Former Smoker Alcohol Use: none Drug Use: none Marital Status: other Housing Status: lives alone Occupation Status: retired Current/Historical Medications Scheduled Bacitracin (Topical) (Bacitracin), 1 APPLN TOP BID Carvedilol (Coreg), 3.125 MG PO BID Docusate Sodium (Colace), 100 MG PO BID Famotidine (Pepcid), 20 MG PO Q12 Furosemide (Lasix), 20 MG PO QAM Glipizide (Glipizide), 10 MG PO BIDM Lactobacillus (Floranex), 1 TAB PO TIDM Levothyroxine Sodium (Synthroid), 75 MCG PO QAM Lisinopril (Lisinopril), 2.5 MG PO QAM Metformin HCl (Metformin HCl), 500 MG PO BIDM Nutritional Supplements (Glucerna), 1 CAN PO BID Scheduled PRN Acetaminophen Tab (Tylenol), 650 MG PO Q4H PRN for Pain or Fever Bisacodyl (Bisacodyl), 10 MG RE DAILY PRN for Constipation Ipratropium-Albuterol (Duoneb), 1 TREATMENT INH QID PRN for Shortness of Breath Allergies Coded Allergies: No Known Allergies (Unverified , 11/08/16) Physical Exam Vital Signs Date Time Temp Pulse Resp B/P (MAP) Pulse Ox O2 Delivery O2 Flow Rate FiO2 11/09/16 01:07 111 11/09/16 00:00 111 20 109/64 95 2.5 11/08/16 22:01 128 11/08/16 21:59 92 Nasal Cannula 2.0 11/08/16 21:50 89 Room Air 11/08/16 21:50 37.4 130 18 165/77 89 Room Air Physical Exam GENERAL: Awake, alert, chronically ill-appearing, in no distress HENT: 2 cm hematoma on the right temporal scalp with sydney in place. Mucous membranes are dry. EYES: Normal conjunctiva. Sclera non-icteric. NECK: Supple. No nuchal rigidity. FROM. Mild JVD. RESPIRATORY: Diminished breath sounds throughout CARDIAC: ST. Extremities warm and well perfused. Pulses equal. ABDOMEN: Soft, non-distended. No tenderness to palpation. No rebound or guarding. No masses. RECTAL: Deferred. MUSCULOSKELETAL: Chest examination reveals no tenderness. The back is symmetrical on inspection without obvious abnormality. There is no CVA tenderness to palpation. No joint edema. LOWER EXTREMITIES: Calves are equal size bilaterally and non-tender. No edema. No discoloration. NEURO: Normal sensorium. No sensory or motor deficits noted. SKIN: No rash or jaundice noted. Medical Decision & Procedures ER Provider Diagnostic Interpretation: Radiology results as stated below per my review and radiologist interpretation: CHEST ONE VIEW PORTABLE HISTORY: 86 years-old Male acute shortness of breath with acute cough COMPARISON: Chest radiograph 04/07/2016 TECHNIQUE: Portable upright AP view of the chest FINDINGS: Cardiac silhouette is again upper limits of normal. There is no pneumothorax or large pleural effusion. Mild pulmonary vascular congestion is noted with linear subsegmental bibasilar opacities suggesting atelectasis or scarring. No focal lobar consolidations. Severe degenerative changes involve the right glenohumeral joint. There is levoscoliosis of the lumbar spine. IMPRESSION: 1. Mildly pulmonary vascular congestion without overt pulmonary edema. 2. Subsegmental bibasilar atelectasis or scarring. The above report was generated using voice recognition software. It may contain grammatical, syntax or spelling errors. Electronically signed by: Sandor Gonzales M.D. 11/08/2016 10:40 PM Dictated Date/Time: 11/08/2016 10:38 PM CTA Chest: Compared to 04/02/16 No PE. No aortic dissection. Coronary atherosclerosis. Distended left ventricle. Bibasilar infiltrates suggesting pneumonitis. Bronchial wall thickening/bronchitis. Radiologist: Camden Cotter MD Study ready at [id number] and initial results transmitted at [id number] Laboratory Results 11/08/16 22:00 Red Blood Count 4.33, Mean Corpuscular Volume 97.7, Mean Corpuscular Hemoglobin 31.4, Mean Corpuscular Hemoglobin Concent 32.2, Mean Platelet Volume 10.2, Neutrophils (%) (Auto) 74.0, Lymphocytes (%) (Auto) 13.9, Monocytes (%) (Auto) 10.5, Eosinophils (%) (Auto) 1.0, Basophils (%) (Auto) 0.2, Neutrophils # (Auto ) 14.33, Lymphocytes # (Auto) 2.68, Monocytes # (Auto) 2.04, Eosinophils # (Auto ) 0.19, Basophils # (Auto) 0.03 11/08/16 22:00 Test 11/08/16 22:00 11/08/16 22:57 11/09/16 00:56 White Blood Count 19.34 K/uL (4.8-10.8) Red Blood Count 4.33 M/uL (4.7-6.1) Hemoglobin 13.6 g/dL (14.0-18.0) Hematocrit 42.3 % (42-52) Mean Corpuscular Volume 97.7 fL (80-100) Mean Corpuscular Hemoglobin 31.4 pg (25-34) Mean Corpuscular Hemoglobin Concent 32.2 g/dl (32-36) Platelet Count 351 K/uL (130-400) Mean Platelet Volume 10.2 fL (7.4-10.4) Neutrophils (%) (Auto) 74.0 % Lymphocytes (%) (Auto) 13.9 % Monocytes (%) (Auto) 10.5 % Eosinophils (%) (Auto) 1.0 % Basophils (%) (Auto) 0.2 % Neutrophils # (Auto) 14.33 K/uL (1.4-6.5) Lymphocytes # (Auto) 2.68 K/uL (1.2-3.4) Monocytes # (Auto) 2.04 K/uL (0.11-0.59) Eosinophils # (Auto) 0.19 K/uL (0-0.5) Basophils # (Auto) 0.03 K/uL (0-0.2) RDW Standard Deviation 48.9 fL (36.4-46.3) RDW Coefficient of Variation 13.6 % (11.5-14.5) Immature Granulocyte % (Auto) 0.4 % Immature Granulocyte # (Auto) 0.07 K/uL (0.00-0.02) Anion Gap 6.0 mmol/L (3-11) Est Creatinine Clear Calc Drug Dose 45.2 ml/min Estimated GFR () 69.6 Estimated GFR (Non- 60.0 BUN/Creatinine Ratio 23.0 (10-20) Calcium Level 9.3 mg/dl (8.5-10.1) Magnesium Level 1.8 mg/dl (1.8-2.4) Pro-B-Type Natriuretic Peptide 2143 pg/ml (0-1800) Venous Blood pH 7.41 (7.36-7.41) Venous Blood Partial Pressure CO2 53 mmHg (38.0-50.0) Venous Blood Partial Pressure O2 32 mmHg Venous Blood HCO3 33 mmol/L Venous Blood Oxygen Saturation 60.5 % Venous Blood Base Excess 6.8 mEq/L Urine Color YELLOW Urine Appearance CLEAR (CLEAR) Urine pH 6.0 (4.5-7.5) Urine Specific [place] > 1.045 (1.000-1.030) Urine Protein TRACE (NEG) Urine Glucose (UA) NEG (NEG) Urine Ketones NEG (NEG) Urine Occult Blood NEG (NEG) Urine Nitrite NEG (NEG) Urine Bilirubin NEG (NEG) Urine Urobilinogen NEG (NEG) Urine Leukocyte Esterase NEG (NEG) Urine WBC (Auto) 0 /hpf (0-5) Urine RBC (Auto) 0-4 /hpf (0-4) Urine Hyaline Casts (Auto) 0 /lpf (0-5) Urine Epithelial Cells (Auto) 0-5 /lpf (0-5) Urine Bacteria (Auto) NEG (NEG) Date/Time Source Procedure Growth Status 11/09/16 00:00 Nasal MRSA DNA Surveillance Screen - Final Specimen Negative for MRSA by DNA Probe Complete Laboratory results reviewed by me Medications Administered Medications (Trade) Dose Ordered Sig/Ricky Route Start Time Stop Time Status Last Admin Dose Admin Piperacillin Sod/ Tazobactam Sod (Zosyn Iv) 4.5 gm NOW STAT IV 11/08/16 23:38 11/08/16 23:41 DC 11/09/16 00:15 4.5 GM Vancomycin HCl 1500 mg/Sodium Chloride 530 ml @ 200 mls/hr ONE STAT IV 11/08/16 23:38 11/09/16 02:16 DC 11/09/16 02:03 200 MLS/HR ECG Indication: SOB/dyspnea, weakness Rate (beats per minute): 130 Rhythm: sinus tachycardia Findings: no acute ischemic change, other (nonspecific intraventricular delay, QRS 130) Comparison ECG Date: 04/03/16 Change: When compared to EKG done on 04/03/16, the nonspecific intraventricular delay is new ED Course 2217: The patient was evaluated in room C3. A complete history and physical exam was performed. 2338: Ordered Vancomycin HCl 1500 mg/Sodium Chloride 530 ml @ 200 mls/hr IV, Zosyn IV 4.5 gm IV. 0020: I reevaluated the patient and he is resting comfortably. I discussed the exam findings with him and his daughter and I discussed the treatment plan. He verbalized complete understanding and agreement. He is going to be evaluated for further treatment. 0038: I discussed the patients case with Adela Collier. He is going to evaluate the patient for further treatment. Medical Decision I reviewed the patient's past medical history, medications, and the nursing notes as described above. The patient's presentation and history were concerning for Pneumonia, CHF exacerbation, bronchitis, ACS, PE. The patient is an 86-year-old gentleman with a past medical history of CHF on Lasix percent from his rehabilitation (there after fall last week) with worsening shortness of breath per history of present illness. On arrival the patient is dyspneic and tachycardic to the 130s. EKG shows sinus tachycardia. On exam the patient has diminished breath sounds throughout. On exam the patient appears clinically dry with dry mucous membranes. However pulmonary- dial fluid overloaded. Chest x-ray shows moderate venous congestion. BNP mildly elevated in the 1999s. WBC elevated at 19. Lactate also elevated 2.6. The patient was subsequently treated empirically with broad-spectrum antibiotics with vancomycin and Zosyn in the setting of the patient's recent hospitalization. Considering findings did not seem to match the patient's dyspnea and hypoxia, concern for possible underlying PE in this patient who is currently at rehabilitation. CT PE was ordered and was negative for pulmonary embolism. However, there was evidence of bilateral basilar infiltrates concerning for pneumonitis as well as bronchial thickening consistent with bronchitis. Limited bedside ultrasound was done which showed no pericardial effusion but did show reduced EF 20-25% which is consistent with what the patient has been in the past. IVC was reviewed and appeared to be variable with inspiration with near collapse just being that the patient is likely moreso euvolemic in the setting of his venous congestion. Thus, diaphoresis deferred at this time is the patient's primary seems to be improving on its own from the 130s to the 100s-110s. Patient admitted to the medicine service for further management. Medication Reconcilliation Current Medication List: was personally reviewed by me Blood Pressure Screening Patient's blood pressure: Elevated blood pressure Blood pressure disposition: Elevated BP felt to be situational, Did not require urgent referral Consults Time Called: 002 Consulting Physician: Adela Douglas Returned Call: 0038 I discussed the patients case with Adela Collier. He is going to evaluate the patient for further treatment. Impression Primary Impression: Pneumonitis Additional Impression: Bronchitis Scribe Attestation The scribe's documentation has been prepared under my direction and personally reviewed by me in its entirety. I confirm that the note above accurately reflects all work, treatment, procedures, and medical decision making performed by me. Departure Information Dispostion Being Evaluated By Hospitalist Referrals Parminder Nava M.D. (PCP) Problem Qualifiers
[2016-11-08] MEDS ORDERED: IPRASOL4 INH (22:32)
[2016-11-08] MEDS ORDERED: LACT1TAB4 PO (22:32)
[2016-11-08] MEDS ORDERED: DOCU-94 PO (22:32)
[2016-11-08] MEDS ORDERED: FAMO20TA11 PO (22:32)
[2016-11-08] MEDS ORDERED: NUTR-468 PO (22:32)
[2016-11-08] MEDS ORDERED: CARV3.122 PO (22:32)
[2016-11-08] MEDS ORDERED: BISA10SU5 RE (22:32)
[2016-11-08] MEDS ORDERED: BACI500O11 TOP (22:32)
[2016-11-08] MEDS ORDERED: ACET325T96 PO (22:32)
[2016-11-08 22:38] LABS: CALCIUM 9.3 mg/dl (8.5-10.1); CREATININE 1.1 mg/dl (0.60-1.40); MAGNESIUM 1.8 mg/dl (1.8-2.4); POTASSIUM 4.7 mmol/L (3.5-5.1)
--- NOTE | 2016-11-08 22:41 | DIAGNOSTIC IMAGING REPORT ---
CHEST ONE VIEW PORTABLE HISTORY: 86 years-old Male acute shortness of breath with acute cough COMPARISON: Chest radiograph 04/07/2016 TECHNIQUE: Portable upright AP view of the chest FINDINGS: Cardiac silhouette is again upper limits of normal. There is no pneumothorax or large pleural effusion. Mild pulmonary vascular congestion is noted with linear subsegmental bibasilar opacities suggesting atelectasis or scarring. No focal lobar consolidations. Severe degenerative changes involve the right glenohumeral joint. There is levoscoliosis of the lumbar spine. IMPRESSION: 1. Mildly pulmonary vascular congestion without overt pulmonary edema. 2. Subsegmental bibasilar atelectasis or scarring. The above report was generated using voice recognition software. It may contain grammatical, syntax or spelling errors. Electronically signed by: Sandor Gonzales M.D. 11/08/2016 10:40 PM Dictated Date/Time: 11/08/2016 10:38 PM
[2016-11-08 23:08] LABS: VEN BLD GAS O2 SATURATION 60.5 %; VEN BLOOD GAS BASE EXCESS 6.8 mEq/L
[2016-11-08] MEDS ORDERED: OPTIRAY 320 IV PRN (23:15)
[2016-11-08] MEDS ORDERED: PIPERACILLIN/TAZOBACTAM 4.5 GM/100ML D5W IV STA (23:38)
[2016-11-08] MEDS ORDERED: VANCOMYCIN INJ 1,500 MG in SODIUM CHLORIDE 0.9% 500ML 500 ML IV STA (23:38)
[2016-11-09] VITALS (11 sets, daily range): BP systolic 112–143; BP diastolic 68–76; PULSE 73–98; TEMP 36.5–37; O2SAT 91–97; Ht 182.9 cm; Wt 65.6 kg
[2016-11-09 01:12] LABS: URINE APPEARANCE CLEAR (CLEAR); URINE BILIRUBIN NEG (NEG); URINE COLOR YELLOW; URINE EPITHELIAL CELL AUTO 0-5 /lpf (0-5); URINE NITRITE NEG (NEG); URINE SPECIFIC GRAVITY > 1.045 (1.000-1.030); UROBILINOGEN NEG (NEG); ZZUR CULT IF INDIC CLEAN CATCH NO
[2016-11-09] MEDS ORDERED: BISACODYL 10 MG SUPP PR PRN (01:15)
[2016-11-09] MEDS ORDERED: ONDANSETRON INJ 2 MG/ML 2 ML VIAL IV PRN (01:15)
[2016-11-09] MEDS ORDERED: ACETAMINOPHEN 325 MG TAB PO PRN (01:15)
[2016-11-09] MEDS ORDERED: ALBUT/IPRATROP 3MG/0.5MG NEB 3 ML VIAL INH PRN (01:15)
[2016-11-09 01:16] LABS: MANUAL MICROSCOPIC REQUIRED? NO; REVIEW REQ? NO
[2016-11-09] MEDS ORDERED: LEVALBUTEROL 0.31MG/3 ML VIAL INH STA (01:22)
--- NOTE | 2016-11-09 02:36 | HISTORY & PHYSICAL EXAMINATION ---
DATE OF ADMISSION: 11/08/2016 PRIMARY CARE PHYSICIAN: Dr. Nava. CHIEF COMPLAINT: Increasing shortness of breath, cough for the last few days. HISTORY OF PRESENT COMPLAINT: He is an 86-year-old male with a significant past medical history of type 2 diabetes, on oral medications, hypothyroidism, COPD, hypertension, chronic back pain and history of bladder cancer and also CHF; apparently, has been complaining of a cough, tiredness, productive of sputum, and fever for the last few days. He has had a fall about 10 days ago and during that fall, he lacerated his scalp on the right side and also had a fracture of the right collarbone. He was in [facility] since Monday to last Monday. Following that, he went to rehab at [facility]. For the last 2 or 3 days, he has been complaining of tiredness and more shortness of breath on exertion associated with cough, productive of yellowish-whitish phlegm. He also noted to have fever to 100.1 yesterday. The condition got worse today with tachycardia and more shortness of breath. At that point, he was transferred to the ER. Most of the history is taken from the daughter, as the patient being very deaf, who mentioned that he did not have any problem with urine and/or bowel habits. No weakness involving any side of the body. No headache, blurred vision, nausea and/or vomiting. In the ER, he was noted to have tachycardia of 130. He was afebrile and his obtained CAT scan of the chest did show bibasilar infiltration and he was tachypneic as well. From that point, he was admitted to telemetry unit for continuation of care. PAST MEDICAL HISTORY: Significant for type 2 diabetes with diabetic neuropathy, Congestive Heart Failure (EF 25-30%,MR and Aortic Sclerosis on 2016) ,hypertension, hypothyroidism,COPD, history of prostate and bladder cancer, history of abdominal aortic aneurysm. PAST SURGICAL HISTORY: Bilateral cataract surgery, right shoulder surgery. FAMILY HISTORY: Brother has cancer and diabetes, father of heart disorder and mother of heart disorder too. SOCIAL HISTORY: He is . He does not smoke and does not drink now, but he has quit smoking a long time ago. ALLERGIES: NKDA. MEDICATIONS: As an outpatient, he has been taking Tylenol 650 mg q. 4 hourly as needed, furosemide 20 mg daily, metformin 500 mg twice daily, Glucerna 1 can b.i.d., bacitracin ointment as directed, bisacodyl suppository as directed, Coreg 3.125 mg twice daily, Colace 100 mg twice daily, Pepcid 20 mg q. 12 hours, glipizide 10 mg. DuoNebs nebulized solutions 4 times daily, Floranex 1 tablet 2-3 times daily, levothyroxine 75 mcg daily, Lisinopril 2.5 mg daily. REVIEW OF SYSTEMS: Other systems reviewed are unremarkable, except those mentioned in history of present complaint. PHYSICAL EXAMINATION: GENERAL: On examination in the Emergency Room, he was having moderate shortness of breath at rest. VITAL SIGNS: Temperature 37.4, pulse was initially 130; later, that went down to 111, blood pressure 165/77 saturation 95% on 2.5 liters, but 89% on room air. HEENT: Unremarkable. NECK: Supple. No JVD, no bruit. CHEST: Decreased breath sounds with coarse crackles at the bases with occasional wheezing anteriorly. HEART: S1, S2 regular. No murmur appreciated. ABDOMEN: Soft, benign, nontender. No organomegaly. Bowel sounds present. EXTREMITIES: Negative for any edema. MUSCULOSKELETAL: Did not show any acute arthritis involving any joint. CENTRAL NERVOUS SYSTEM: Alert, awake, oriented x3. He was deaf, but no focal sensory and/or motor deficit appreciated. LABORATORY DATA: Noted today, white count 2.34, H&H 13.6/42.3, platelets was 351, neutrophil count was high at 14.33. Venous blood gas pH 7.41, pCO2 53, pO2 32. Sodium 136, potassium 4.7, chloride 98, carbon dioxide 32, BUN 25, creatinine 1.10, random glucose 256. Lactic acid 2.6. BNP was 2143, troponin was 0.031, magnesium 1.8. UA examination unremarkable. EKG was in sinus rhythm, tachycardia 130, IVCD with associated ST and T-wave changes, but ST depression pronounced in the lateral leads. Compared with a prior EKG, IVCD seems to be worsened. Chest x-ray reported as mild pulmonary vascular congestion without overt pulmonary edema, subsegmental bibasilar atelectasis or scarring. CT to rule out PE did show bibasilar infiltration/pneumonitis and bronchial thickening. IMPRESSION AND PLAN: 1. Bibasilar infiltration with probable sepsis. The patient had fever of 100.4, tachycardia and tachypneic with low saturation; hemodynamically stable otherwise. Lactic Acid was 2.6 on admission. Started with intravenous vancomycin and Zosyn. We will continue for the time being. Blood cultures were taken and he will be admitted to telemetry unit. 2. He has increasing shortness of breath with history of congestive heart failure with EF of 25-30%, BNP is mildly elevated, but no overt congestive heart failure at this time. Denies any weight gain and or any leg Edema. We will hold Lasix and give him a cautious amount of IV fluid for mild dehydration. 3. Chronic obstructive pulmonary disease. Seems to have mild exacerbation. Continue with nebulized bronchodilator and give a small dose of Solu-Medrol for quick recovery. 4.Type II DM: Hold Metformin .SSI and check BS ACHS.Chesk Hb A1c in AM 5. Hypertension. Blood pressure seems to be controlled at this time. 6. Hypothyroidism. Continue current medication. 7. History of bladder and prostate cancer. No acute problem at this time. 8. Gastrointestinal prophylaxis with Pepcid. 9. Deep venous thrombosis prophylaxis with subcutaneous heparin. 10. Code status. Discussed with the POA and the daughter. He would be DNS. In my clinical judgment, the beneficiary meets criteria as per CMS for 2 midnight stay in the hospital. MTDD
[2016-11-09] MEDS: LEVALBUTEROL 0.31MG/3 ML VIAL INH SCH ×3 (03:00→19:06)
[2016-11-09] MEDS ORDERED: METHYLPREDNISOLONE IV 20 MG in SYRINGE 0 ML IV STA (03:05)
[2016-11-09] MEDS ORDERED: DEXTROSE 50% 50 ML SYR IV PRN (03:15)
[2016-11-09] MEDS ORDERED: GLUCOSE 40% GEL 15 GM TUBE PO PRN (03:15)
[2016-11-09] MEDS ORDERED: GLUCOSE 10 TABS/TUBE PO PRN (03:15)
[2016-11-09] MEDS ORDERED: GLUCAGON FOR INJ 1 MG VIAL SQ PRN (03:15)
[2016-11-09] MEDS ORDERED: PIPERACILL/TAZOBAC CONSULT ACTIVE PRN (03:15)
[2016-11-09] MEDS: NSS + 20MEQ KCL 1000ML 1,000 ML IV SCH ×2 (04:07→17:03)
[2016-11-09] MEDS: PIPERACILL/TAZOBAC IV 3.375 GM in DEXTROSE 5% 100ML IV SCH ×3 (05:26→21:34)
[2016-11-09] MEDS: LEVOTHYROXINE 75 MCG TAB PO SCH (05:26)
[2016-11-09] MEDS ORDERED: PIPERACILL/TAZOBAC IV 4.5 GM in DEXTROSE 5% 100ML 100 ML IV SCH (06:00)
[2016-11-09] MEDS: HEPARIN SOD 5000 UNIT/0.5 ML CARP SQ SCH ×3 (06:00→21:36)
--- NOTE | 2016-11-09 07:01 | DIAGNOSTIC IMAGING REPORT ---
(CHEST FOR PE) ANGIO WITH CT DOSE: 341.16 mGy.cm HISTORY: Chest pain dyspnea TECHNIQUE: Multiaxial CT images of the chest were performed following the intravenous administration of contrast to evaluate the pulmonary arteries. Maximal intensity projection images were also obtained. A dose lowering technique was utilized adhering to the principles of ALARA. COMPARISON STUDY: 04/02/2016 FINDINGS: Thoracic aorta shows mild abscess chronic change. No evidence for aneurysm or dissection. Pulmonary arterial vasculature enhances appropriately. No filling defects. Geographic area of right perihilar consolidative change best seen transaxial image 60. This measures 3.2 x 3.0 cm and is similar compared to the prior study. Potential developing 7 mm nodular density posterior aspect right lower lobe transaxial image 60. Stable emphysematous change bilaterally. Fluid within the left major fissure. Potential nodular-type infiltrate left lower lobe posteriorly. Minimal dependent atelectasis right base. Right renal cyst unchanged. Several indeterminate mediastinal nodes unchanged. Mild esophageal wall thickening. IMPRESSION: 1. Study is negative for pulmonary embolus. 2. Consolidative right perihilar change versus mass. 3. Multinodular parenchymal appearance to the lungs with a close follow-up recommended. 4. Emphysematous change with mild infiltrative change left base. This is similar as compared to the prior study. The above report was generated using voice recognition software. It may contain grammatical, syntax or spelling errors. Electronically signed by: Jonnie Lemon M.D. 11/09/2016 7:00 AM Dictated Date/Time: 11/09/2016 6:53 AM
[2016-11-09 07:44] LABS: PROTHROMBIN TIME (PATIENT) 11.2 SECONDS (9.0-12.0)
[2016-11-09] MEDS: INSULIN ASPART 100 UNITS/ML 3 ML PEN SC SCH ×4 (09:21→20:33)
[2016-11-09] MEDS: LISINOPRIL 2.5 MG TAB PO SCH (09:22)
[2016-11-09] MEDS: DOCUSATE SODIUM 100 MG CAP PO SCH ×2 (09:23→20:30)
[2016-11-09] MEDS: BACITRACIN OINT 15 GM TUBE TOP SCH ×2 (09:23→20:31)
[2016-11-09] MEDS: METHYLPREDNISOLONE IV 20 MG in SYRINGE 0 ML IV SCH ×3 (09:23→20:29)
[2016-11-09] MEDS: FAMOTIDINE 20 MG TAB PO SCH ×2 (09:23→20:31)
[2016-11-09] MEDS: LACTOBACILLUS ACIDOPHILUS (FLORANEX) TAB PO SCH ×3 (09:24→17:04)
[2016-11-09] MEDS: CARVEDILOL 3.125 MG TAB PO SCH ×2 (09:24→20:30)
--- NOTE | 2016-11-09 19:10 | Progress Note ---
Internal Med Progress Note Date of Service: Nov 09, 2016. Provider Documentation: SUBJECTIVE: resting comfortably feeling much better sob improved has some cough afebrile no pain OBJECTIVE: Vital Signs-as noted below Exam: General-alert and oriented. Not in distress ENT-Hard of hearing Neck-no neck masses supple Lungs-cta b/l no wheezing no crackles present Heart-s1 and s2 heard regular rate and rhythm no murmurs Abdomen-soft bowel sounds present non tender no distension Extremities- no erythema no edema Neuro-alert and oriented moves extremities Lab data as noted below. ASSESSMENT & PLAN: 1. Bibasilar infiltration with probable sepsis. Health care pneumonia? The patient had fever of 100.4, On presentation tachycardia and tachypneic with low saturation; Lactic Acid was 2.6 on admission. Started with intravenous vancomycin and Zosyn. lactic acid normalized. improving. mrsa swab is negative so vancomycin is not continued continue Zosyn and monitor. 2. history of systolic congestive heart failure with EF of 25-30%, sob mostly from pneumonia and copd Lasix on hold and received gentle fluids. close monitor. May start Lasix in am if stable. 3. Mild Chronic obstructive pulmonary disease. on iv solumedrol 20mg tid and nebs. will monitor. may change nebs to prn in am. 4. Mild elevation of troponin mostly demand ischemia from above asymptomatic 5.Type II DM: Holding Metformin .SSI and check BS ACHS. Check Hb A1c in AM. 6. Hypertension. on Coreg, and lisinopril. Will monitor. 6. Hypothyroidism. On synthyroid. . 7. History of bladder and prostate cancer. No acute problem at this time. 8. Gastrointestinal prophylaxis with Pepcid. 9. Malnutrition nutrition consult. 10. recent fall right scalp injury right collar bone was in [facility] pt/ot when stable 11. Deep venous thrombosis prophylaxis with subcutaneous heparin. 12. Code status. DNR as per h and p.. DISPOSITION close monitor in tele pt/ot prior to discharge social service for d/c planning Vital Signs: Date Time Temp Pulse Resp B/P (MAP) Pulse Ox O2 Delivery O2 Flow Rate FiO2 11/09/16 16:00 96 Nasal Cannula 2.0 11/09/16 15:09 36.5 89 18 112/73 (86) 96 Nasal Cannula 2.0 11/09/16 14:22 73 16 91 Nasal Cannula 2.0 11/09/16 12:00 91 Nasal Cannula 2.0 11/09/16 10:59 36.6 83 18 112/68 (83) 91 Nasal Cannula 2.0 11/09/16 08:00 91 Nasal Cannula 2.0 11/09/16 07:44 36.5 91 20 120/71 (87) 91 Nasal Cannula 2.0 11/09/16 07:29 93 16 95 Nasal Cannula 2.0 11/09/16 04:15 Nasal Cannula 2.0 11/09/16 02:44 36.9 95 20 117/69 95 Nasal Cannula 2.0 11/09/16 01:29 105 20 114/51 94 Nasal Cannula 2.5 11/09/16 01:07 111 11/09/16 00:00 111 20 109/64 95 2.5 11/08/16 22:01 128 11/08/16 21:59 92 Nasal Cannula 2.0 11/08/16 21:50 89 Room Air 11/08/16 21:50 37.4 130 18 165/77 89 Room Air Lab Results: Results Past 24 Hours Test 11/08/16 22:00 11/08/16 22:57 11/09/16 00:56 11/09/16 01:36 Range/Units White Blood Count 19.34 4.8-10.8 K/uL Red Blood Count 4.33 4.7-6.1 M/uL Hemoglobin 13.6 14.0-18.0 g/dL Hematocrit 42.3 42-52 % Mean Corpuscular Volume 97.7 80-100 fL Mean Corpuscular Hemoglobin 31.4 25-34 pg Mean Corpuscular Hemoglobin Concent 32.2 32-36 g/dl Platelet Count 351 130-400 K/uL Mean Platelet Volume 10.2 7.4-10.4 fL Neutrophils (%) (Auto) 74.0 % Lymphocytes (%) (Auto) 13.9 % Monocytes (%) (Auto) 10.5 % Eosinophils (%) (Auto) 1.0 % Basophils (%) (Auto) 0.2 % Neutrophils # (Auto) 14.33 1.4-6.5 K/uL Lymphocytes # (Auto) 2.68 1.2-3.4 K/uL Monocytes # (Auto) 2.04 0.11-0.59 K/uL Eosinophils # (Auto) 0.19 0-0.5 K/uL Basophils # (Auto) 0.03 0-0.2 K/uL RDW Standard Deviation 48.9 36.4-46.3 fL RDW Coefficient of Variation 13.6 11.5-14.5 % Immature Granulocyte % (Auto) 0.4 % Immature Granulocyte # (Auto) 0.07 0.00-0.02 K/uL Sodium Level 136 136-145 mmol/L Potassium Level 4.7 3.5-5.1 mmol/L Chloride Level 98 98-107 mmol/L Carbon Dioxide Level 32 21-32 mmol/L Anion Gap 6.0 3-11 mmol/L Blood Urea Nitrogen 25 7-18 mg/dl Creatinine 1.10 0.60-1.40 mg/dl Est Creatinine Clear Calc Drug Dose 45.2 ml/min Estimated GFR () 69.6 Estimated GFR (Non- 60.0 BUN/Creatinine Ratio 23.0 10-20 Random Glucose 256 70-99 mg/dl Calcium Level 9.3 8.5-10.1 mg/dl Magnesium Level 1.8 1.8-2.4 mg/dl Troponin I 0.031 0.197 0-0.045 ng/ml Pro-B-Type Natriuretic Peptide 2143 0-1800 pg/ml Venous Blood pH 7.41 7.36-7.41 Venous Blood Partial Pressure CO2 53 38.0-50.0 mmHg Venous Blood Partial Pressure O2 32 mmHg Venous Blood HCO3 33 mmol/L Venous Blood Oxygen Saturation 60.5 % Venous Blood Base Excess 6.8 mEq/L Lactic Acid Level 2.6 0.4-2.0 mmol/L Urine Color YELLOW Urine Appearance CLEAR CLEAR Urine pH 6.0 4.5-7.5 Urine Specific [place] > 1.045 1.000-1.030 Urine Protein TRACE NEG Urine Glucose (UA) NEG NEG Urine Ketones NEG NEG Urine Occult Blood NEG NEG Urine Nitrite NEG NEG Urine Bilirubin NEG NEG Urine Urobilinogen NEG NEG Urine Leukocyte Esterase NEG NEG Urine WBC (Auto) 0 0-5 /hpf Urine RBC (Auto) 0-4 0-4 /hpf Urine Hyaline Casts (Auto) 0 0-5 /lpf Urine Epithelial Cells (Auto) 0-5 0-5 /lpf Urine Bacteria (Auto) NEG NEG Test 11/09/16 07:14 11/09/16 07:15 11/09/16 07:22 11/09/16 11:21 Range/Units Prothrombin Time 11.2 9.0-12.0 SECONDS Prothromb Time International Ratio 1.0 0.9-1.1 Bedside Glucose 183 181 70-99 mg/dl Lactic Acid Level 0.8 0.4-2.0 mmol/L Troponin I 0.229 0-0.045 ng/ml Test 11/09/16 13:13 11/09/16 16:25 Range/Units Troponin I 0.161 0-0.045 ng/ml Bedside Glucose 156 70-99 mg/dl Microbiology Results 11/08/16 Blood Culture, Received Pending 11/08/16 Blood Culture, Received Pending 11/09/16 MRSA DNA Surveillance Screen - Final, Complete Specimen Negative for MRSA by DNA Probe
[2016-11-10] VITALS (11 sets, daily range): BP systolic 114–146; BP diastolic 64–78; PULSE 68–100; TEMP 36.5–36.9; O2SAT 93–97
[2016-11-10] MEDS: LEVALBUTEROL 0.31MG/3 ML VIAL INH SCH ×4 (02:10→19:14)
[2016-11-10] MEDS: HEPARIN SOD 5000 UNIT/0.5 ML CARP SQ SCH ×3 (06:17→22:21)
[2016-11-10] MEDS: LEVOTHYROXINE 75 MCG TAB PO SCH (06:17)
[2016-11-10] MEDS: PIPERACILL/TAZOBAC IV 3.375 GM in DEXTROSE 5% 100ML IV SCH ×3 (06:17→22:20)
[2016-11-10] MEDS: BOOST GLUCOSE CONTROL PO SCH ×2 (07:30→17:49)
[2016-11-10 08:32] LABS: ESTIMATED AVERAGE GLUCOSE 157 mg/dl; HA1C FLAG Normal (Normal)
[2016-11-10] MEDS: METHYLPREDNISOLONE IV 20 MG in SYRINGE 0 ML IV SCH ×2 (08:32→12:40)
[2016-11-10] MEDS: LACTOBACILLUS ACIDOPHILUS (FLORANEX) TAB PO SCH ×3 (08:33→17:44)
[2016-11-10] MEDS: DOCUSATE SODIUM 100 MG CAP PO SCH ×2 (08:34→20:16)
[2016-11-10] MEDS: CARVEDILOL 3.125 MG TAB PO SCH ×2 (08:34→20:17)
[2016-11-10] MEDS: FAMOTIDINE 20 MG TAB PO SCH ×2 (08:34→20:15)
[2016-11-10] MEDS: LISINOPRIL 2.5 MG TAB PO SCH (08:35)
[2016-11-10] MEDS: BACITRACIN OINT 15 GM TUBE TOP SCH ×2 (08:35→20:16)
[2016-11-10] MEDS: INSULIN ASPART 100 UNITS/ML 3 ML PEN SC SCH ×4 (08:41→20:21)
--- NOTE | 2016-11-10 18:40 | Progress Note ---
Internal Med Progress Note Date of Service: Nov 10, 2016. Provider Documentation: SUBJECTIVE: feel better since admission afebrile still having cough OBJECTIVE: Vital Signs-as noted below Exam: General-no sign of distress Eyes-sclera non icteric HEAD : healed laceration wound on rt scalp area , with black eschar , sydney present Neck-no JVD Lungs-coarse rales Heart-regular Abdomen-soft, non tender Extremities-no rash or deformity Neuro-no focal deficit Lab data as noted below. ASSESSMENT & PLAN: COUGH /SOB /PNEUMONIA -HEALTH CARE ASSOCIATED -recent admission to hospital followed by [facility] criteria for sepsis on admission with fever of 100.4, tachycardia and tachypneic with low saturation; Lactic Acid was 2.6 on admission. lactic acid normalized with IV fluid was started on broad spectrum Abx Vancomycin /Zosyn clinically improving. mrsa swab is negative so vancomycin is not continued continue Zosyn will transition to oral ABx in 1-2 days History of systolic congestive heart failure with EF of 25-30%, sob mostly from pneumonia and copd Lasix on hold and received gentle fluids. close monitor for vol status 3. Mild Chronic obstructive pulmonary disease. will taper down IV Solu Medrol as no wheeze noted 4. Mild elevation of troponin mostly demand ischemia from above asymptomatic 5.Type II DM: Holding Metformin . cont insulin SSI 6. Hypertension. on Coreg, and lisinopril. Will monitor. 6. Hypothyroidism. On synthyroid. . SCALP INJURY : from recent fall sydney present right scalp laceration healing well sydney will be removed prior to discharge DNR dvt prophylaxis sub q heparin DISPOSITION to be determined ordered for PT/OT Vital Signs: Date Time Temp Pulse Resp B/P (MAP) Pulse Ox O2 Delivery O2 Flow Rate FiO2 11/10/16 16:00 93 Nasal Cannula 2.0 11/10/16 15:20 36.5 78 134/70 (91) 93 Nasal Cannula 2.0 11/10/16 14:31 96 16 97 Nasal Cannula 2.0 11/10/16 12:00 36.5 68 16 117/69 (85) 95 11/10/16 11:58 Nasal Cannula 2.0 11/10/16 08:00 Nasal Cannula 2.0 11/10/16 07:49 36.7 81 18 114/64 (81) 95 Nasal Cannula 2.0 11/10/16 07:02 80 16 96 Nasal Cannula 2.0 11/10/16 04:16 90 16 97 Nasal Cannula 3.0 11/10/16 04:04 36.8 100 19 121/70 (87) 96 Nasal Cannula 2.0 11/10/16 04:00 Nasal Cannula 2.0 11/10/16 00:00 Nasal Cannula 2.0 11/09/16 23:58 37.0 90 20 115/71 (86) 95 Nasal Cannula 2.0 11/09/16 20:00 Nasal Cannula 3.0 Lab Results: Results Past 24 Hours Test 11/09/16 20:08 11/10/16 06:13 11/10/16 06:23 11/10/16 11:35 Range/Units Bedside Glucose 252 121 286 70-99 mg/dl Estimated Average Glucose 157 mg/dl Hemoglobin A1c 7.1 4.5-5.6 % 25-Hydroxy Vitamin D Total 22.0 30-100 ng/ml Test 11/10/16 12:24 11/10/16 16:10 Range/Units Bedside Glucose 248 92 70-99 mg/dl
[2016-11-11] VITALS (12 sets, daily range): BP systolic 123–151; BP diastolic 71–89; PULSE 87–114; TEMP 36.3–36.9; O2SAT 90–98
[2016-11-11] MEDS: LEVALBUTEROL 0.31MG/3 ML VIAL INH SCH ×4 (01:45→19:17)
[2016-11-11] MEDS: PIPERACILL/TAZOBAC IV 3.375 GM in DEXTROSE 5% 100ML IV SCH ×3 (06:07→22:05)
[2016-11-11] MEDS: LEVOTHYROXINE 75 MCG TAB PO SCH (06:08)
[2016-11-11] MEDS: HEPARIN SOD 5000 UNIT/0.5 ML CARP SQ SCH ×3 (06:09→20:56)
[2016-11-11 06:58] LABS: HEMATOCRIT 40.8 % (42-52); MEAN CELL VOLUME 98.1 fL (80-100); MEAN CORPUSCULAR HEMOGLOBIN 32.2 pg (25-34); MEAN CORPUSCULAR HGB CONC 32.8 g/dl (32-36); MEAN PLATELET VOLUME 10.1 fL (7.4-10.4); PLATELET COUNT 335 K/uL (130-400); RED BLOOD COUNT 4.16 M/uL (4.7-6.1); WHITE BLOOD COUNT 17.84 K/uL (4.8-10.8)
[2016-11-11 07:25] LABS: CREATININE 0.86 mg/dl (0.60-1.40)
[2016-11-11] MEDS: CARVEDILOL 3.125 MG TAB PO SCH ×2 (08:18→21:03)
[2016-11-11] MEDS: LACTOBACILLUS ACIDOPHILUS (FLORANEX) TAB PO SCH ×3 (08:18→17:18)
[2016-11-11] MEDS: LISINOPRIL 2.5 MG TAB PO SCH (08:18)
[2016-11-11] MEDS: DOCUSATE SODIUM 100 MG CAP PO SCH ×2 (08:18→20:46)
[2016-11-11] MEDS: FAMOTIDINE 20 MG TAB PO SCH ×2 (08:18→20:47)
[2016-11-11] MEDS: BACITRACIN OINT 15 GM TUBE TOP SCH ×2 (08:19→20:51)
[2016-11-11] MEDS: BOOST GLUCOSE CONTROL PO SCH ×2 (08:24→17:21)
[2016-11-11] MEDS: INSULIN ASPART 100 UNITS/ML 3 ML PEN SC SCH ×4 (08:27→20:57)
[2016-11-11] MEDS: METHYLPREDNISOLONE IV 20 MG in SYRINGE 0 ML IV SCH ×2 (12:06)
--- NOTE | 2016-11-11 18:51 | Progress Note ---
Internal Med Progress Note Date of Service: Nov 11, 2016. Provider Documentation: SUBJECTIVE: cough has improved no fever or chills OBJECTIVE: Vital Signs-as noted below Exam: General-no sign of distress Eyes-sclera non icteric HEAD : healed laceration wound on rt scalp area , with black eschar , sydney present Neck-no JVD Lungs-coarse rales Heart-regular Abdomen-soft, non tender Extremities-no rash or deformity Neuro-no focal deficit Lab data as noted below. ASSESSMENT & PLAN: COUGH /SOB /PNEUMONIA -HEALTH CARE ASSOCIATED -recent admission to hospital followed by rehab med criteria for sepsis on admission with fever of 100.4, tachycardia and tachypneic with low saturation; Lactic Acid was 2.6 on admission. lactic acid normalized with IV fluid was started on broad spectrum Abx Vancomycin /Zosyn clinically improved mrsa swab is negative so vancomycin is not continued continue Zosyn has minimum cough , afebrile will transition to oral ABx in 1-2 days History of systolic congestive heart failure with EF of 25-30%, sob mostly from pneumonia and copd will resume Lasix tomorrow 3. Mild Chronic obstructive pulmonary disease. no wheeze IV Solu Medrol D/gracie started on PO Prednisone 4. Mild elevation of troponin mostly demand ischemia from above asymptomatic 5.Type II DM: Holding Metformin . cont insulin SSI 6. Hypertension. on Coreg, and lisinopril. Will monitor. 6. Hypothyroidism. On Synthroid. . SCALP INJURY : from recent fall sydney present right scalp laceration healing well sydney will be removed prior to discharge DNR dvt prophylaxis sub q heparin DISPOSITION Return to [facility] for continued rehab tomorrow appreciate PT/OT eval daughter will provide transportation Vital Signs: Date Time Temp Pulse Resp B/P (MAP) Pulse Ox O2 Delivery O2 Flow Rate FiO2 11/12/16 15:55 36.8 91 20 116/63 (80) 95 Nasal Cannula 2.0 11/12/16 14:15 88 16 96 Nasal Cannula 2.0 11/12/16 08:01 36.8 96 20 145/85 (105) 96 Nasal Cannula 2.0 11/12/16 08:00 96 Nasal Cannula 2.0 11/12/16 07:42 96 16 96 Nasal Cannula 2.0 11/12/16 01:35 84 16 96 Nasal Cannula 2.0 11/12/16 00:11 95 Nasal Cannula 2.0 11/11/16 23:59 36.9 90 18 143/80 (101) 96 Nasal Cannula 2.0 11/11/16 19:17 87 16 95 Nasal Cannula 2.0 11/11/16 18:52 36.6 90 22 90 2.0 Lab Results: Results Past 24 Hours Test 11/11/16 20:16 11/12/16 06:43 11/12/16 07:26 11/12/16 11:20 Range/Units Bedside Glucose 204 108 281 70-99 mg/dl White Blood Count 14.27 4.8-10.8 K/uL Red Blood Count 4.20 4.7-6.1 M/uL Hemoglobin 13.0 14.0-18.0 g/dL Hematocrit 41.4 42-52 % Mean Corpuscular Volume 98.6 80-100 fL Mean Corpuscular Hemoglobin 31.0 25-34 pg Mean Corpuscular Hemoglobin Concent 31.4 32-36 g/dl RDW Standard Deviation 49.7 36.4-46.3 fL RDW Coefficient of Variation 13.9 11.5-14.5 % Platelet Count 369 130-400 K/uL Mean Platelet Volume 10.3 7.4-10.4 fL Creatinine 0.90 0.60-1.40 mg/dl Est Creatinine Clear Calc Drug Dose 53.7 ml/min Estimated GFR () 88.7 Estimated GFR (Non- 76.5 Test 11/12/16 16:13 Range/Units Bedside Glucose 350 70-99 mg/dl
[2016-11-12] VITALS (10 sets, daily range): BP systolic 116–145; BP diastolic 63–85; PULSE 80–96; TEMP 36.8; O2SAT 93–96
[2016-11-12] MEDS: LEVALBUTEROL 0.31MG/3 ML VIAL INH SCH ×4 (01:35→19:32)
[2016-11-12] MEDS: PIPERACILL/TAZOBAC IV 3.375 GM in DEXTROSE 5% 100ML IV SCH ×2 (05:50→13:51)
[2016-11-12] MEDS: LEVOTHYROXINE 75 MCG TAB PO SCH (05:50)
[2016-11-12] MEDS: HEPARIN SOD 5000 UNIT/0.5 ML CARP SQ SCH ×3 (05:52→21:53)
[2016-11-12 07:28] LABS: HEMATOCRIT 41.4 % (42-52); MEAN CELL VOLUME 98.6 fL (80-100); MEAN CORPUSCULAR HGB CONC 31.4 g/dl (32-36); MEAN PLATELET VOLUME 10.3 fL (7.4-10.4); PLATELET COUNT 369 K/uL (130-400); WHITE BLOOD COUNT 14.27 K/uL (4.8-10.8)
[2016-11-12] MEDS: LACTOBACILLUS ACIDOPHILUS (FLORANEX) TAB PO SCH ×3 (07:51→17:11)
[2016-11-12] MEDS: BOOST GLUCOSE CONTROL PO SCH ×2 (07:51→17:11)
[2016-11-12] MEDS: LISINOPRIL 2.5 MG TAB PO SCH (07:52)
[2016-11-12] MEDS: BACITRACIN OINT 15 GM TUBE TOP SCH ×2 (07:52→20:58)
[2016-11-12] MEDS: FAMOTIDINE 20 MG TAB PO SCH ×2 (07:52→20:57)
[2016-11-12] MEDS: FUROSEMIDE 20 MG TAB PO SCH (07:52)
[2016-11-12] MEDS: DOCUSATE SODIUM 100 MG CAP PO SCH ×2 (07:52→20:56)
[2016-11-12] MEDS: INSULIN ASPART 100 UNITS/ML 3 ML PEN SC SCH ×4 (07:56→20:57)
[2016-11-12 08:07] LABS: CREATININE 0.9 mg/dl (0.60-1.40)
[2016-11-12] MEDS: CARVEDILOL 3.125 MG TAB PO SCH ×2 (08:32→20:57)
--- NOTE | 2016-11-12 17:02 | Discharge Instructions ---
Discharge Instructions Date of Service Nov 12, 2016. Admission Reason for Admission: Pneumonia,Sepsis Discharge Discharge Diagnosis / Problem: PNEUMONIA Discharge Goals Goal(s): Diagnostic testing, Therapeutic intervention Activity Recommendations Activity Level: Assistance Required Therapies: Physical Therapy, Occupational Therapy Shower/Bathe: no limitations . Additional Information Patient informed of condition: Yes Advance Directives: Yes DNR: Yes Level of Care: Skilled Communicable Disease: No Prognosis: Stable Gomes Catheter: No Instructions / Follow-Up Instructions / Follow-Up FOLLOW UP WITH FAMILY PHYSICIAN AFTER DISCHARGE FROM REHAB Current Hospital Diet Patient's current hospital diet: Diabetes Type 2 Diet, Low Sodium Diet (2gm Na) Discharge Diet Recommended Diet: Low Sodium Diet (2gm Na), Diabetes Type 2 Diet Pending Studies Studies pending at discharge: no Laboratory Results Hemoglobin A1c Test 11/10/16 06:13 Range/Units Estimated Average Glucose 157 mg/dl Hemoglobin A1c 7.1 H 4.5-5.6 % Medical Emergencies . Who to Call and When: Medical Emergencies: If at any time you feel your situation is an emergency, please call 911 immediately. . Non-Emergent Contact Non-Emergency issues call your: Primary Care Provider . . "Provider Documentation" section prepared by Sheridan Miranda. . Core Measure Problem Core Measures: None
[2016-11-12] MEDS ORDERED: LVQ500 PO (17:33)
[2016-11-12] MEDS: LEVOFLOXACIN 500 MG TAB PO SCH (18:58)
[2016-11-12] MEDS ORDERED: INSULIN GLARGINE SOLOSTAR 100 UNITS/ML 3 ML PEN SC SCH (21:00)
[2016-11-12] MEDS: INSULIN GLARGINE SOLOSTAR 100 UNITS/ML 3 ML PEN SC SCH (21:03)
[2016-11-13] MEDS: LEVALBUTEROL 0.31MG/3 ML VIAL INH SCH ×2 (01:28→07:00)
[2016-11-13] MEDS: LEVOTHYROXINE 75 MCG TAB PO SCH (06:03)
[2016-11-13] MEDS: HEPARIN SOD 5000 UNIT/0.5 ML CARP SQ SCH (06:03)
[2016-11-13 07:04] VITALS: PULSE 78; O2SAT 92
[2016-11-13 07:46] LABS: CREATININE 0.84 mg/dl (0.60-1.40)
[2016-11-13 07:47] VITALS: BP 130/68; PULSE 105; TEMP 36.8; O2SAT 92
[2016-11-13 08:00] VITALS: O2SAT 96
[2016-11-13] MEDS: FAMOTIDINE 20 MG TAB PO SCH (08:00)
[2016-11-13] MEDS: CARVEDILOL 3.125 MG TAB PO SCH (08:00)
[2016-11-13] MEDS: DOCUSATE SODIUM 100 MG CAP PO SCH (08:00)
[2016-11-13] MEDS: BOOST GLUCOSE CONTROL PO SCH (08:00)
[2016-11-13] MEDS: LACTOBACILLUS ACIDOPHILUS (FLORANEX) TAB PO SCH (08:00)
[2016-11-13] MEDS: LISINOPRIL 2.5 MG TAB PO SCH (08:00)
[2016-11-13] MEDS: BACITRACIN OINT 15 GM TUBE TOP SCH (08:01)
[2016-11-13] MEDS: INSULIN GLARGINE SOLOSTAR 100 UNITS/ML 3 ML PEN SC SCH (08:18)
[2016-11-13] MEDS: INSULIN ASPART 100 UNITS/ML 3 ML PEN SC SCH (08:18)
[2016-11-13] MEDS: FUROSEMIDE 20 MG TAB PO SCH (08:19)
[2016-11-13] MEDS ORDERED: LVQ500 PO (09:26)
[2016-11-13 10:11] VITALS: BP 130/68; PULSE 105; TEMP 36.8; O2SAT 96
[2016-11-13] MEDS: LEVOFLOXACIN 500 MG TAB PO SCH (10:53)
--- NOTE | 2016-11-13 12:13 | Progress Note ---
Internal Med Progress Note Date of Service: Nov 13, 2016. Provider Documentation: SUBJECTIVE: not requiring 02 in room air minimum cough , no fever or chills feels much better stable to be discharged to rehab at [facility] OBJECTIVE: Vital Signs-as noted below Exam: General-no sign of distress Eyes-sclera non icteric HEAD : healed laceration wound on rt scalp area , with black eschar , sydney removed Neck-no JVD Lungs-chronic crackles , improved auscultation from prior Heart-regular Abdomen-soft, non tender Extremities-no rash or deformity Neuro-no focal deficit Lab data as noted below. ASSESSMENT & PLAN: COUGH /SOB /PNEUMONIA -HEALTH CARE ASSOCIATED clinically improved -recent admission to hospital followed by rehab med criteria for sepsis on admission presented with fever of 100.4, tachycardia and tachypneic with low saturation; Lactic Acid was 2.6 on admission. lactic acid normalized with IV fluid was started on broad spectrum Abx Vancomycin /Zosyn clinically improved mrsa swab is negative so vancomycin is not continued Abx changed to PO Levaquin complete # 3 more days History of systolic congestive heart failure with EF of 25-30%, sob mostly from pneumonia and copd Lasix resumed 3. Mild Chronic obstructive pulmonary disease. no wheeze on oral Prednisone 4. Mild elevation of troponin mostly demand ischemia from above asymptomatic 5.Type II DM: Holding Metformin . cont insulin SSI 6. Hypertension. on Coreg, and lisinopril. Will monitor. 6. Hypothyroidism. On Synthroid. . SCALP INJURY : from recent fall sydney present right scalp laceration healing well sydney removed DNR dvt prophylaxis sub q heparin DISPOSITION Return to [facility] for continued rehab today daughter will provide transportation Vital Signs: Date Time Temp Pulse Resp B/P (MAP) Pulse Ox O2 Delivery O2 Flow Rate FiO2 11/13/16 10:11 36.8 105 18 96 Room Air 11/13/16 08:00 96 Room Air 11/13/16 07:47 36.8 105 18 130/68 (88) 92 Room Air 11/13/16 07:04 78 16 92 Room Air 11/13/16 00:00 Room Air 11/12/16 23:58 36.8 80 20 119/66 (83) 94 Room Air 11/12/16 17:30 93 Room Air 11/12/16 16:00 95 Nasal Cannula 2.0 11/12/16 15:55 36.8 91 20 116/63 (80) 95 Nasal Cannula 2.0 11/12/16 14:15 88 16 96 Nasal Cannula 2.0 Lab Results: Results Past 24 Hours Test 11/12/16 16:13 11/12/16 20:35 11/13/16 06:54 11/13/16 07:25 Range/Units Bedside Glucose 350 124 150 70-99 mg/dl Creatinine 0.84 0.60-1.40 mg/dl Est Creatinine Clear Calc Drug Dose 57.5 ml/min Estimated GFR () 91.2 Estimated GFR (Non- 78.7 Test 11/13/16 11:37 Range/Units Bedside Glucose 101 70-99 mg/dl
--- NOTE | 2016-11-13 12:14 | Discharge Summary ---
Discharge Summary Date of Service Nov 13, 2016. Discharge Summary Admission Date: Nov 09, 2016 at 01:07 Discharge Date: Nov 14, 2016 Discharge Disposition: Rehab ([facility] ) Principal Diagnosis: PNEUMONIA Procedures: CT CHEST WITH CONTRAST : IMPRESSION: 1. Study is negative for pulmonary embolus. 2. Consolidative right perihilar change versus mass. 3. Multinodular parenchymal appearance to the lungs with a close follow-up recommended. 4. Emphysematous change with mild infiltrative change left base. This is similar as compared to the prior study. Medication Reconciliation New Medications: Levofloxacin (Levofloxacin) 500 Mg Tab 500 MG PO DAILY for 3 Days, #3 TAB Continued Medications: Acetaminophen Tab (Tylenol) 325 Mg Tab 650 MG PO Q4H PRN for Pain or Fever, TAB MILD PAIN OR FEVER >100. Bacitracin (Topical) (Bacitracin) 500 Unit/Gm Oin 1 APPLN TOP BID APPLY TO LACERATION ON HEAD. Bisacodyl (Bisacodyl) 10 Mg Sup 10 MG RE DAILY PRN for Constipation Carvedilol (Coreg) 3.125 Mg Tab 3.125 MG PO BID, TAB Docusate Sodium (Colace) 100 Mg Cap 100 MG PO BID for 30 Days, #60 CAP Famotidine (Pepcid) 20 Mg Tab 20 MG PO Q12, TAB Furosemide (Lasix) 20 Mg Tab 20 MG PO QAM, TAB Glipizide (Glipizide) 10 Mg Tab 10 MG PO BIDM Ipratropium-Albuterol (Duoneb) 3 Ml Nebu 1 TREATMENT INH QID PRN for Shortness of Breath, INHA Lactobacillus (Floranex) 1 Tab Tab 1 TAB PO TIDM Levothyroxine Sodium (Synthroid) 75 Mcg Tab 75 MCG PO QAM, TAB Lisinopril (Lisinopril) 2.5 Mg Tab 2.5 MG PO QAM Metformin HCl (Metformin HCl) 500 Mg Tab 500 MG PO BIDM Nutritional Supplements (Glucerna) 1 Liq Liq 1 CAN PO BID Admission Information HPI (per Admitting provider): DATE OF ADMISSION: 11/08/2016 PRIMARY CARE PHYSICIAN: Dr. Nava. CHIEF COMPLAINT: Increasing shortness of breath, cough for the last few days. HISTORY OF PRESENT COMPLAINT: He is an 86-year-old male with a significant past medical history of type 2 diabetes, on oral medications, hypothyroidism, COPD, hypertension, chronic back pain and history of bladder cancer and also CHF; apparently, has been complaining of a cough, tiredness, productive of sputum, and fever for the last few days. He has had a fall about 10 days ago and during that fall, he lacerated his scalp on the right side and also had a fracture of the right collarbone. He was in [facility] since Monday to last Monday. Following that, he went to rehab at [facility]. For the last 2 or 3 days, he has been complaining of tiredness and more shortness of breath on exertion associated with cough, productive of yellowish-whitish phlegm. He also noted to have fever to 100.1 yesterday. The condition got worse today with tachycardia and more shortness of breath. At that point, he was transferred to the ER. Most of the history is taken from the daughter, as the patient being very deaf, who mentioned that he did not have any problem with urine and/or bowel habits. No weakness involving any side of the body. No headache, blurred vision, nausea and/or vomiting. In the ER, he was noted to have tachycardia of 130. He was afebrile and his obtained CAT scan of the chest did show bibasilar infiltration and he was tachypneic as well. From that point, he was admitted to telemetry unit for continuation of care. PAST MEDICAL HISTORY: Significant for type 2 diabetes with diabetic neuropathy, Congestive Heart Failure (EF 25-30%,MR and Aortic Sclerosis on 2016) ,hypertension, hypothyroidism,COPD, history of prostate and bladder cancer, history of abdominal aortic aneurysm. PAST SURGICAL HISTORY: Bilateral cataract surgery, right shoulder surgery. FAMILY HISTORY: Brother has cancer and diabetes, father of heart disorder and mother of heart disorder too. SOCIAL HISTORY: He is . He does not smoke and does not drink now, but he has quit smoking a long time ago. ALLERGIES: NKDA. MEDICATIONS: As an outpatient, he has been taking Tylenol 650 mg q. 4 hourly as needed, furosemide 20 mg daily, metformin 500 mg twice daily, Glucerna 1 can b.i.d., bacitracin ointment as directed, bisacodyl suppository as directed, Coreg 3.125 mg twice daily, Colace 100 mg twice daily, Pepcid 20 mg q. 12 hours, glipizide 10 mg. DuoNebs nebulized solutions 4 times daily, Floranex 1 tablet 2-3 times daily, levothyroxine 75 mcg daily, Lisinopril 2.5 mg daily. REVIEW OF SYSTEMS: Other systems reviewed are unremarkable, except those mentioned in history of present complaint. Physical Exam (per Admitting): PHYSICAL EXAMINATION: GENERAL: On examination in the Emergency Room, he was having moderate shortness of breath at rest. VITAL SIGNS: Temperature 37.4, pulse was initially 130; later, that went down to 111, blood pressure 165/77 saturation 95% on 2.5 liters, but 89% on room air. HEENT: Unremarkable. NECK: Supple. No JVD, no bruit. CHEST: Decreased breath sounds with coarse crackles at the bases with occasional wheezing anteriorly. HEART: S1, S2 regular. No murmur appreciated. ABDOMEN: Soft, benign, nontender. No organomegaly. Bowel sounds present. EXTREMITIES: Negative for any edema. MUSCULOSKELETAL: Did not show any acute arthritis involving any joint. CENTRAL NERVOUS SYSTEM: Alert, awake, oriented x3. He was deaf, but no focal sensory and/or motor deficit appreciated. Hospital Course COUGH /SOB /PNEUMONIA -HEALTH CARE ASSOCIATED clinically improved -recent admission to hospital followed by rehab med criteria for sepsis on admission presented with fever of 100.4, tachycardia and tachypneic with low saturation; Lactic Acid was 2.6 on admission. lactic acid normalized with IV fluid was started on broad spectrum Abx Vancomycin /Zosyn clinically improved mrsa swab is negative so vancomycin is not continued Abx changed to PO Levaquin complete # 3 more days History of systolic congestive heart failure with EF of 25-30%, sob mostly from pneumonia and copd Lasix resumed 3. Mild Chronic obstructive pulmonary disease. no wheeze on oral Prednisone 4. Mild elevation of troponin mostly demand ischemia from above asymptomatic 5.Type II DM: Holding Metformin . cont insulin SSI 6. Hypertension. on Coreg, and lisinopril. Will monitor. 6. Hypothyroidism. On Synthroid. . SCALP INJURY : from recent fall sydney present right scalp laceration healing well sydney removed DNR dvt prophylaxis sub q heparin DISPOSITION Return to [facility] for continued rehab today daughter will provide transportation Total time spent on discharge = 40 mins This includes examination of the patient, discharge planning, medication reconciliation, and communication with other providers. Discharge Instructions Discharge Instructions Date of Service Nov 12, 2016. Admission Reason for Admission: Pneumonia,Sepsis Discharge Discharge Diagnosis / Problem: PNEUMONIA Discharge Goals Goal(s): Diagnostic testing, Therapeutic intervention Activity Recommendations Activity Level: Assistance Required Therapies: Physical Therapy, Occupational Therapy Shower/Bathe: no limitations . Additional Information Patient informed of condition: Yes Advance Directives: Yes DNR: Yes Level of Care: Skilled Communicable Disease: No Prognosis: Stable Gomes Catheter: No Instructions / Follow-Up Instructions / Follow-Up FOLLOW UP WITH FAMILY PHYSICIAN AFTER DISCHARGE FROM REHAB Current Hospital Diet Patient's current hospital diet: Diabetes Type 2 Diet, Low Sodium Diet (2gm Na) Discharge Diet Recommended Diet: Low Sodium Diet (2gm Na), Diabetes Type 2 Diet Pending Studies Studies pending at discharge: no Laboratory Results Hemoglobin A1c Test 11/10/16 06:13 Range/Units Estimated Average Glucose 157 mg/dl Hemoglobin A1c 7.1 H 4.5-5.6 % Medical Emergencies . Who to Call and When: Medical Emergencies: If at any time you feel your situation is an emergency, please call 911 immediately. . Non-Emergent Contact Non-Emergency issues call your: Primary Care Provider . . "Provider Documentation" section prepared by Sheridan Miranda. . Core Measure Problem Core Measures: None
== END 2016-11-13 12:50 | DRG 871 ==
LOC: EDBD 21:50 → C.EDC 21:53 → C.2T 11-09 01:07 → ENRESERV 11-09 01:20 → C.MS2W 11-11 19:48
PROVIDERS: ADMIT Internal Medicine; ATTEND Hospitalist
DX: A41.9 Sepsis, unspecified organism (principal); J18.9 Pneumonia, unspecified organism; I50.20 Unspecified systolic (congestive) heart failure; E46 Unspecified protein-calorie malnutrition; I24.8 Other forms of acute ischemic heart disease; Y95 Nosocomial condition; J44.9 Chronic obstructive pulmonary disease, unspecified; R79.89 Other specified abnormal findings of blood chemistry; E11.40 Type 2 diabetes mellitus with diabetic neuropathy, unspecified; I11.0 Hypertensive heart disease with heart failure; E03.9 Hypothyroidism, unspecified; I35.8 Other nonrheumatic aortic valve disorders; Z66 Do not resuscitate; Z87.891 Personal history of nicotine dependence; Z85.46 Personal history of malignant neoplasm of prostate; Z85.51 Personal history of malignant neoplasm of bladder; Z86.79 Personal history of other diseases of the circulatory system; Z79.899 Other long term (current) drug therapy; Z79.84 Long term (current) use of oral hypoglycemic drugs; Z91.81 History of falling

== ENCOUNTER → 2016-11-24 | Outpatient (CLI) | payer OTHER, BC ==
[~2016-11-24] MED LIST changes: +ACET325T96 PO; -ASPI81TA28 PO; +BACI500O11 TOP; +BISA10SU5 RE; +CARV3.122 PO; +DOCU-94 PO; +FAMO20TA11 PO; +FURO-85 PO; +IPRASOL4 INH; +LACT1TAB4 PO; -LSX20 PO; +LVQ500 PO; -LVQ750 PO; -MISCCAP80 PO; +NUTR-468 PO; -SENNTAB23 PO; -SPR25 PO; -TAPE50TA PO; -TPRSR25 PO; -VNTHFA/IN PO
[2016-11-24 10:19] LABS: BASO % 0.5 %; BASO ABS # 0.05 K/uL (0-0.2); COMPLETE YES; EOS % 3.1 %; HEMATOCRIT 43.7 % (42-52); IG% 0.3 %; LYMPH % 28.7 %; LYMPH ABS # 3.14 K/uL (1.2-3.4); MEAN CELL VOLUME 100.9 fL (80-100); MEAN CORPUSCULAR HEMOGLOBIN 31.6 pg (25-34); MEAN CORPUSCULAR HGB CONC 31.4 g/dl (32-36); MEAN PLATELET VOLUME 10.5 fL (7.4-10.4); MONO % 12.7 %; NEUT % 54.7 %; PLATELET COUNT 343 K/uL (130-400); RED BLOOD COUNT 4.33 M/uL (4.7-6.1); WHITE BLOOD COUNT 10.93 K/uL (4.8-10.8)
[2016-11-24 10:25] LABS: BLOOD UREA NITROGEN 25 mg/dl (7-18); CREATININE 0.86 mg/dl (0.60-1.40); GLUCOSE 156 mg/dl (70-99)
[2016-11-24 10:26] LABS: BUN/CREATININE RATIO 29.5 (10-20); CALCIUM 9.2 mg/dl (8.5-10.1); CARBON DIOXIDE 34 mmol/L (21-32); CHLORIDE 102 mmol/L (98-107); POTASSIUM 4.4 mmol/L (3.5-5.1); SODIUM 139 mmol/L (136-145)
== END | disposition home or self-care (01) ==
LOC: C.LABVPSUA 09:47
PROVIDERS: ATTEND Internal Medicine Critical Care Medicine
DX: J93.9 Pneumothorax, unspecified (principal)

== ENCOUNTER 2017-03-13 16:48 | Emergency (ER) | payer OTHER, BC ==
[~2017-03-13] VITALS: Ht 182.9 cm; Wt 63.0 kg
[~2017-03-13 16:48] MED LIST changes: -ACET325T96 PO; -DOCU-94 PO; -IPRASOL4 INH; -LACT1TAB4 PO; -LSN25 PO
[2017-03-13 16:55] VITALS: Ht 182.9 cm; Wt 63.0 kg
[2017-03-13] MEDS ORDERED: LEVO75TA5 PO (17:39)
[2017-03-13] MEDS ORDERED: CRG3125 PO (17:41)
[2017-03-13] MEDS ORDERED: LSX40 PO (17:47)
[2017-03-13 17:51] LABS: BASO % 0.4 %; BASO ABS # 0.04 K/uL (0-0.2); COMPLETE YES; EOS % 2.3 %; HEMATOCRIT 41.2 % (42-52); IG% 0.2 %; LYMPH % 35.6 %; LYMPH ABS # 3.43 K/uL (1.2-3.4); MEAN CELL VOLUME 95.2 fL (80-100); MEAN CORPUSCULAR HEMOGLOBIN 30.7 pg (25-34); MEAN CORPUSCULAR HGB CONC 32.3 g/dl (32-36); MEAN PLATELET VOLUME 10.2 fL (7.4-10.4); MONO % 14.3 %; NEUT % 47.2 %; PLATELET COUNT 367 K/uL (130-400); RED BLOOD COUNT 4.33 M/uL (4.7-6.1); WHITE BLOOD COUNT 9.64 K/uL (4.8-10.8)
[2017-03-13 18:10] LABS: BUN/CREATININE RATIO 19.1 (10-20); CALCIUM 8.2 mg/dl (8.5-10.1); CREATININE 0.88 mg/dl (0.60-1.40); POTASSIUM 4.2 mmol/L (3.5-5.1)
[2017-03-13 18:13] LABS: ALB/GLOB RATIO 0.7 (0.9-2)
--- NOTE | 2017-03-13 18:16 | EMERGENCY ROOM VISIT NOTE ---
ED Visit Note First contact with patient: 17:00 Resident Physician Supervision Note: I was present with Dr. Gillis during the history and exam. I discussed the case with the resident and agree with the findings and plan as documented in the note. Documented By: Praneeth Pires
--- NOTE | 2017-03-13 19:08 | DIAGNOSTIC IMAGING REPORT ---
AP CHEST WITH ABDOMINAL SERIES CLINICAL HISTORY: Generalized abdominal pain. Cough FINDINGS: An AP chest radiograph is compared to chest x-ray and chest CT dated 11/08/2016. Examination is degraded by patient rotation. The heart is enlarged and there is atherosclerotic calcification of the thoracic aorta. The pulmonary vasculature is noncongested. Emphysema and chronic interstitial thickening are similar to previous. Left basilar airspace opacities are identified. No large pleural effusion or pneumothorax is seen. The skeletal structures are osteopenic. The bony thorax is grossly intact. Advanced arthritic change is seen in the right shoulder. Supine and decubitus abdominal radiographs are obtained. No prior studies are available for comparison at the time of dictation. There is a nonobstructed abdominal bowel gas pattern. Moderate colonic fecal retention is observed. No evidence of intraperitoneal free air is seen. There is advanced atherosclerotic calcification of the abdominal aorta. Small nonobstructing right renal calculi are questioned. The skeletal structures are osteopenic. Moderate lumbar spondylosis and scoliosis is identified. The lumbosacral spine and bony pelvis are grossly intact. IMPRESSION: 1. Cardiomegaly and emphysema. 2. Airspace opacities at the left lung base and likely represent atelectasis. Clinical correlation will be required. 3. Nonobstructed abdominal bowel gas pattern noting moderate constipation. 4. No intraperitoneal free air is seen. Electronically signed by: George Feng M.D. 03/13/2017 7:06 PM Dictated Date/Time: 03/13/2017 7:03 PM
--- NOTE | 2017-03-13 19:35 | EMERGENCY ROOM VISIT NOTE ---
History First contact with patient: 17:00 Chief Complaint: ABDOMINAL PAIN Stated Complaint: STOMACH PAIN, UNCONTROLLED BOWELS, WEAKNESS Nursing Triage Summary: Recently in [facility] for colitis. Daughter reports since D/C she has noticed increased weakness, abd pain and bloating, increased burping. Did a colonscopy 2 weeks ago but colon was too inflamed. As soon as he eats, he has to have a BM which is loose. History of Present Illness The patient is a 86 year old male who presents to the Emergency Room with complaints of loose stools and weakness Patient was recently hospitalized 2 weeks ago in [place] for primary colitis. He was treated empirically with Ciprofloxacin and Flagyl. He reports loose stools immediately following each meal. He also reports bilateral lower abdominal pain. Patient lives alone, but since the previous hospitalization his family has been checking in on him more often. His daughter reports that he has been weaker and dizzy. He is alert to person, place and time. He denies nausea, vomiting or fever. Patient denies CP, SOB or syncopal episode. Pt has a PMH significant for CHF, COPD, T2DM, HTN, Prostate cancer. Review of Systems see below Constitutional: No fever, No chills, No sweats Respiratory: + cough, No sputum, No wheezing, No shortness of breath, No dyspnea on exertion, No dyspnea at rest Cardiovascular: No chest pain, No orthopnea, No edema, No palpitations Abdomen: + pain, + nausea, + diarrhea, No vomiting Past Medical/Surgical History Medical Problems: (1) Abdominal aortic aneurysm (AAA) 3.0 cm to 5.5 cm in diameter in male (2) Bladder cancer (3) Chronic back pain (4) Chronic lower back pain (5) Community acquired pneumonia (6) Diabetes (7) Diabetic retinopathy (8) Hypertension (9) Hypothyroidism (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, shoulder (11) Pneumonia (12) Prostate cancer (13) Sepsis Family History Cancer Diabetes mellitus Heart disease Social History Smoking Status: Former Smoker Alcohol Use: none Drug Use: none Marital Status: other Housing Status: lives alone Occupation Status: retired Current/Historical Medications Scheduled Carvedilol (Carvedilol), 3.125 MG PO BID Furosemide (Furosemide), 40 MG PO QAM Glipizide (Glipizide), 10 MG PO BIDM Lactobacillus (Floranex), 1 TAB PO BIDM Levothyroxine Sodium (Levothyroxine Sodium), 75 MCG PO DAILY Lisinopril (Lisinopril), 2.5 MG PO QAM Metformin HCl (Metformin HCl), 500 MG PO BIDM Scheduled PRN Acetaminophen Tab (Tylenol), 650 MG PO Q4H PRN for Pain or Fever Docusate Sodium (Colace), 100 MG PO BID PRN for Constipation Ipratropium-Albuterol (Duoneb), 1 TREATMENT INH QID PRN for Shortness of Breath Physical Exam Vital Signs Date Time Temp Pulse Resp B/P (MAP) Pulse Ox O2 Delivery O2 Flow Rate FiO2 03/13/17 21:30 107 20 153/91 91 Room Air 03/13/17 19:06 96 16 116/70 91 Room Air 03/13/17 16:55 36.4 107 18 118/75 92 Room Air Physical Exam see below General Appearance: WD/WN, no apparent distress Head: normocephalic, atraumatic Respiratory/Chest: chest non-tender, no respiratory distress, no accessory muscle use, + rhonchi, + wheezing Cardiovascular: regular rate, rhythm, no edema, no gallop, no JVD, no murmur , normal peripheral pulses Abdomen / GI: normal bowel sounds, soft, no organomegaly, no pulsatile mass , + tenderness (Bilateral lower abdomenal tenderness) Neurologic/Psych: alert, normal mood/affect, normal reflexes, oriented x 3 Medical Decision & Procedures ER Provider Diagnostic Interpretation: AP CHEST WITH ABDOMINAL SERIES CLINICAL HISTORY: Generalized abdominal pain. Cough FINDINGS: An AP chest radiograph is compared to chest x-ray and chest CT dated 11/08/2016. Examination is degraded by patient rotation. The heart is enlarged and there is atherosclerotic calcification of the thoracic aorta. The pulmonary vasculature is noncongested. Emphysema and chronic interstitial thickening are similar to previous. Left basilar airspace opacities are identified. No large pleural effusion or pneumothorax is seen. The skeletal structures are osteopenic. The bony thorax is grossly intact. Advanced arthritic change is seen in the right shoulder. Supine and decubitus abdominal radiographs are obtained. No prior studies are available for comparison at the time of dictation. There is a nonobstructed abdominal bowel gas pattern. Moderate colonic fecal retention is observed. No evidence of intraperitoneal free air is seen. There is advanced atherosclerotic calcification of the abdominal aorta. Small nonobstructing right renal calculi are questioned. The skeletal structures are osteopenic. Moderate lumbar spondylosis and scoliosis is identified. The lumbosacral spine and bony pelvis are grossly intact. IMPRESSION: 1. Cardiomegaly and emphysema. 2. Airspace opacities at the left lung base and likely represent atelectasis. Clinical correlation will be required. 3. Nonobstructed abdominal bowel gas pattern noting moderate constipation. 4. No intraperitoneal free air is seen. Electronically signed by: George Feng M.D. 03/13/2017 7:[address] ANGIOGRAM OF THE ABDOMEN AND PELVIS CLINICAL HISTORY: Generalized abdominal pain. Weakness. COMPARISON STUDY: Abdominal radiographs dated 03/13/2017. TECHNIQUE: Following the IV administration of 116 cc of Optiray 320, CT angiogram of the abdomen and pelvis was performed from the lung bases the proximal femora. Images are reviewed in the axial, sagittal, and coronal planes. 3-D MIPS images are created and assessed. IV contrast was administered without complication. A dose lowering technique was utilized adhering to the principles of ALARA. The Examination is degraded by motion artifact, as well as by streak artifact from the patient's arms which could not be elevated above the abdomen. CT DOSE: 393.90 mGy.cm FINDINGS: Lower chest: The heart is enlarged and without pericardial effusion. Emphysematous change is noted. Scarring versus atelectasis is present at both lung bases. Minimal patchy opacities are present at the right lung base. No pleural effusion is identified. Liver: The contrast-enhanced liver is normal in size, contour, and attenuation. There is no intrahepatic or ductal dilatation. The main portal veins appear patent. Gallbladder: Calcified gallstones are observed. The gallbladder is otherwise normal as imaged. Spleen: Atrophic. Pancreas: Atrophic and grossly unremarkable. Adrenal glands: Unremarkable. Kidneys: The contrast enhanced kidneys are atrophic and without hydronephrosis. The kidneys enhance symmetrically. Bilateral renal cysts measure up to 4.7 cm. Additional cortical hypodensities also likely represent cysts but are too small for definitive characterization. There are renovascular calcifications. Bilateral perinephric stranding is nonspecific. Abdominal aorta and iliac arteries: There is advanced atherosclerotic calcification of the abdominal aorta and iliac arteries. There is an aneurysm of the distal abdominal aorta which measures 3.1 cm in AP diameter and 3.7 cm in transverse diameter. 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 There is mild intimal dilatation of the left common iliac artery which measures up to 2.2 cm. The abdominal aorta and iliac arteries are widely patent. There is mild ectasia of the common femoral arteries which measure up to 1.2 cm. Major branches of the abdominal aorta: The celiac trunk, superior mesenteric, and inferior mesenteric arteries are widely patent. Hepatic arterial anatomy is conventional. The splenic artery is patent. Single bilateral renal arteries are patent. Bowel: There is mild colonic diverticulosis without CT evidence of acute diverticulitis. Moderate to severe constipation is observed. No bowel obstruction is seen. The appendix is well-visualized and normal. Peritoneum: There is no intraperitoneal free air or abdominal ascites. Lymphadenopathy: None. Pelvic viscera: The bladder is normal as visualized. The prostate gland is diminutive and heterogeneous. Findings suggest previous left inguinal herniorrhaphy. Skeletal structures: The skeletal structures are osteopenic. There is moderate lumbosacral spondylosis and scoliosis. No lytic or blastic bony lesions are seen. There are bilateral pars defects at L5. IMPRESSION: 1. Significantly streak and motion compromised examination. 2. There is advanced atherosclerotic calcification of the abdominal aorta and iliac arteries, with a 3.1 x 3.7 cm aneurysm of the distal abdominal aorta. 3. 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 4. The major branches of the abdominal aorta are patent. 5. Moderate to severe constipation. No bowel obstruction is seen. 6. There is nonspecific bilateral perinephric stranding. Correlate with clinical findings and urinalysis. 7. Cardiomegaly and emphysema. 8. Colonic diverticulosis without CT evidence of acute diverticulitis. 9. Cholelithiasis. 10. There are minimal patchy airspace opacities at the right lung base. This could represent scarring/atelectasis. Correlate clinically for evidence of superimposed pneumonia/aspiration pneumonitis. 11. Additional findings as above. Electronically signed by: George Feng M.D. 03/13/2017 9:26 PM Dictated Date/Time: 03/13/2017 9:15 PM Laboratory Results 03/13/17 17:40 Red Blood Count 4.33, Mean Corpuscular Volume 95.2, Mean Corpuscular Hemoglobin 30.7, Mean Corpuscular Hemoglobin Concent 32.3, Mean Platelet Volume 10.2, Neutrophils (%) (Auto) 47.2, Lymphocytes (%) (Auto) 35.6, Monocytes (%) (Auto) 14.3, Eosinophils (%) (Auto) 2.3, Basophils (%) (Auto) 0.4, Neutrophils # (Auto ) 4.55, Lymphocytes # (Auto) 3.43, Monocytes # (Auto) 1.38, Eosinophils # (Auto ) 0.22, Basophils # (Auto) 0.04 03/13/17 17:40 Test 03/13/17 17:40 03/13/17 19:06 03/13/17 22:20 White Blood Count 9.64 K/uL (4.8-10.8) Red Blood Count 4.33 M/uL (4.7-6.1) Hemoglobin 13.3 g/dL (14.0-18.0) Hematocrit 41.2 % (42-52) Mean Corpuscular Volume 95.2 fL (80-100) Mean Corpuscular Hemoglobin 30.7 pg (25-34) Mean Corpuscular Hemoglobin Concent 32.3 g/dl (32-36) Platelet Count 367 K/uL (130-400) Mean Platelet Volume 10.2 fL (7.4-10.4) Neutrophils (%) (Auto) 47.2 % Lymphocytes (%) (Auto) 35.6 % Monocytes (%) (Auto) 14.3 % Eosinophils (%) (Auto) 2.3 % Basophils (%) (Auto) 0.4 % Neutrophils # (Auto) 4.55 K/uL (1.4-6.5) Lymphocytes # (Auto) 3.43 K/uL (1.2-3.4) Monocytes # (Auto) 1.38 K/uL (0.11-0.59) Eosinophils # (Auto) 0.22 K/uL (0-0.5) Basophils # (Auto) 0.04 K/uL (0-0.2) RDW Standard Deviation 52.2 fL (36.4-46.3) RDW Coefficient of Variation 15.0 % (11.5-14.5) Immature Granulocyte % (Auto) 0.2 % Immature Granulocyte # (Auto) 0.02 K/uL (0.00-0.02) Anion Gap 3.0 mmol/L (3-11) Est Creatinine Clear Calc Drug Dose 52.7 ml/min Estimated GFR () 89.5 Estimated GFR (Non- 77.2 BUN/Creatinine Ratio 19.1 (10-20) Calcium Level 8.2 mg/dl (8.5-10.1) Total Bilirubin 0.4 mg/dl (0.2-1) Aspartate Amino Transf (AST/SGOT) 25 U/L (15-37) Alanine Aminotransferase (ALT/SGPT) 17 U/L (12-78) Alkaline Phosphatase 44 U/L (45-117) Total Protein 7.0 gm/dl (6.4-8.2) Albumin 2.9 gm/dl (3.4-5.0) Globulin 4.1 gm/dl (2.5-4.0) Albumin/Globulin Ratio 0.7 (0.9-2) Lactic Acid Level 1.6 mmol/L (0.4-2.0) Urine Color YELLOW Urine Appearance CLEAR (CLEAR) Urine pH 7.5 (4.5-7.5) Urine Specific [place] > 1.045 (1.000-1.030) Urine Protein 2+ (NEG) Urine Glucose (UA) NEG (NEG) Urine Ketones NEG (NEG) Urine Occult Blood TRACE (NEG) Urine Nitrite NEG (NEG) Urine Bilirubin NEG (NEG) Urine Urobilinogen NEG (NEG) Urine Leukocyte Esterase NEG (NEG) Urine WBC (Auto) 1-5 /hpf (0-5) Urine RBC (Auto) 0-4 /hpf (0-4) Urine Hyaline Casts (Auto) 1-5 /lpf (0-5) Urine Epithelial Cells (Auto) 10-20 /lpf (0-5) Urine Bacteria (Auto) NEG (NEG) Date/Time Source Procedure Growth Status 03/13/17 21:24 Stool C.difficile Toxin B Gene (PCR) - Final No C. difficile toxin B gene detected Complete ED Course 1800 History and physical performed 1829 Ordered the following labs and test; Ab/chest xray, cbc, cmp, fobt 1899 Reviewed [place] hospitalization 1929 Reaccessed the patient 1999 Order CTA of the abdomen and pelvis 2029 reaccessed patient 2044 patient taken to radiology 2129 reviewed patients CTA and ordered UA Medical Decision 86 yo male comes into the ED with loose stools, weakness after being on Ciprofloxacin and Flagyl for suspected primary colitis/diverticulitis. Considering the following differential; cdiff, viral/bacterial gastroenteritis, ischemic colitis, diverticulitis, angiodysplasia, diverticulosis. I reviewed the patients chart from a recent hospitalization (02/28) in [facility]; patient was treated for suspected primary colitis. Patient received a CT w/o contrast and colonoscopy. The colonoscopy was inconclusive due to inflammation and bleeding. CT showed signs of inflammatory that extended up to the splenic flexure. In the ED today, the patient was shown to have normal WBC and a moderately low Hgb. Patient is still having significant tenderness associated with the diarrhea. He denies any visible blood at this time. It was decided that the patient should receive a CTA of abdomen and pelvis due to concerns for ischemic colitis. CTA was negative for signs of ischemic colitis or acute diverticulitis. FOBT was negative. CTA did show some perinephric stranding. UA was negative for infection. Stool Cdiff was negative. Patients family is concerned about the patients ability to take care of himself. Recommended for the patient to have close follow up with his primary care physician. In addition, we discussed that he would benefit greatly from an outpatient GI consult. Case management met with the patient and discussed rehabilitation options. Symptoms of weakness likely a combination of baseline deconditioning exacerbated by recent diarrheal disease. Discussed inpatient rehab possibilities with the family. In addition, case management is arranging follow up appointment with Dr. Huerta this week. Sending the patient home with a prescription of Pepcid. Impression Primary Impression: Diarrhea Departure Information Dispostion Home / Self-Care Condition FAIR Referrals [facility] (PCP) Patient Instructions My [facility] Additional Instructions Mr Trinh, You came into today to be evaluated for abdominal pain, diarrhea and weakness. We were concerned for a some bowel issues, namely GI bleed, ischemic colitis, diverticulitis and cdiff. All test and imaging were unremarkable. You need to follow up with your primary care physician, as well as a data software engineer regarding your symptoms. We also discussed options for rehab. Return to the ER for persistent diarrhea, fevers, abdominal pain, chest pains, difficulty breathing, black or bloody stools, worsening of your condition, or as needed. Follow up with your primary physician in 1-2 days for a recheck of your current condition We prescribed Pepcid to see if this help your abdominal pain. Take acetaminophen(Tylenol) for fever or pain. Use 1000mg every eight hours as needed. Avoid using more than 3000mg in a 24 hour period. This is available over the counter. Read all the package inserts or medication information paperwork provided. If you have any questions or concerns call your primary provider, pharmacist or the ER for assistance. Rest and drink plenty of fluids as tolerated. Slow sips of water or sports drinks are recommended instead of large amounts all at once. Continue current medications. Once your stomach is settled start with a clear liquid diet (jello, soup broth, etc.) and then advance as tolerated. You should avoid full, heavy meals for about 24 hrs from the time your symptoms resolved.
[2017-03-13] MEDS ORDERED: OPTIRAY 320 IV PRN (20:15)
--- NOTE | 2017-03-13 21:27 | DIAGNOSTIC IMAGING REPORT ---
CT ANGIOGRAM OF THE ABDOMEN AND PELVIS CLINICAL HISTORY: Generalized abdominal pain. Weakness. COMPARISON STUDY: Abdominal radiographs dated 03/13/2017. TECHNIQUE: Following the IV administration of 116 cc of Optiray 320, CT angiogram of the abdomen and pelvis was performed from the lung bases the proximal femora. Images are reviewed in the axial, sagittal, and coronal planes. 3-D MIPS images are created and assessed. IV contrast was administered without complication. A dose lowering technique was utilized adhering to the principles of ALARA. The Examination is degraded by motion artifact, as well as by streak artifact from the patient's arms which could not be elevated above the abdomen. CT DOSE: 393.90 mGy.cm FINDINGS: Lower chest: The heart is enlarged and without pericardial effusion. Emphysematous change is noted. Scarring versus atelectasis is present at both lung bases. Minimal patchy opacities are present at the right lung base. No pleural effusion is identified. Liver: The contrast-enhanced liver is normal in size, contour, and attenuation. There is no intrahepatic or ductal dilatation. The main portal veins appear patent. Gallbladder: Calcified gallstones are observed. The gallbladder is otherwise normal as imaged. Spleen: Atrophic. Pancreas: Atrophic and grossly unremarkable. Adrenal glands: Unremarkable. Kidneys: The contrast enhanced kidneys are atrophic and without hydronephrosis. The kidneys enhance symmetrically. Bilateral renal cysts measure up to 4.7 cm. Additional cortical hypodensities also likely represent cysts but are too small for definitive characterization. There are renovascular calcifications. Bilateral perinephric stranding is nonspecific. Abdominal aorta and iliac arteries: There is advanced atherosclerotic calcification of the abdominal aorta and iliac arteries. There is an aneurysm of the distal abdominal aorta which measures 3.1 cm in AP diameter and 3.7 cm in transverse diameter. 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 There is mild intimal dilatation of the left common iliac artery which measures up to 2.2 cm. The abdominal aorta and iliac arteries are widely patent. There is mild ectasia of the common femoral arteries which measure up to 1.2 cm. Major branches of the abdominal aorta: The celiac trunk, superior mesenteric, and inferior mesenteric arteries are widely patent. Hepatic arterial anatomy is conventional. The splenic artery is patent. Single bilateral renal arteries are patent. Bowel: There is mild colonic diverticulosis without CT evidence of acute diverticulitis. Moderate to severe constipation is observed. No bowel obstruction is seen. The appendix is well-visualized and normal. Peritoneum: There is no intraperitoneal free air or abdominal ascites. Lymphadenopathy: None. Pelvic viscera: The bladder is normal as visualized. The prostate gland is diminutive and heterogeneous. Findings suggest previous left inguinal herniorrhaphy. Skeletal structures: The skeletal structures are osteopenic. There is moderate lumbosacral spondylosis and scoliosis. No lytic or blastic bony lesions are seen. There are bilateral pars defects at L5. IMPRESSION: 1. Significantly streak and motion compromised examination. 2. There is advanced atherosclerotic calcification of the abdominal aorta and iliac arteries, with a 3.1 x 3.7 cm aneurysm of the distal abdominal aorta. 3. 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 4. The major branches of the abdominal aorta are patent. 5. Moderate to severe constipation. No bowel obstruction is seen. 6. There is nonspecific bilateral perinephric stranding. Correlate with clinical findings and urinalysis. 7. Cardiomegaly and emphysema. 8. Colonic diverticulosis without CT evidence of acute diverticulitis. 9. Cholelithiasis. 10. There are minimal patchy airspace opacities at the right lung base. This could represent scarring/atelectasis. Correlate clinically for evidence of superimposed pneumonia/aspiration pneumonitis. 11. Additional findings as above. Electronically signed by: George Feng M.D. 03/13/2017 9:26 PM Dictated Date/Time: 03/13/2017 9:15 PM
[2017-03-13] MEDS ORDERED: LSN25 PO (22:27)
[2017-03-13] MEDS ORDERED: IPRASOL4 INH (22:32)
[2017-03-13] MEDS ORDERED: ACET325T96 PO (22:32)
[2017-03-13] MEDS ORDERED: DOCU-94 PO (22:32)
[2017-03-13] MEDS ORDERED: LACT1TAB4 PO (22:32)
[2017-03-13 22:33] LABS: URINE APPEARANCE CLEAR (CLEAR); URINE BILIRUBIN NEG (NEG); URINE COLOR YELLOW; URINE NITRITE NEG (NEG); URINE PH 7.5 (4.5-7.5); URINE SPECIFIC GRAVITY > 1.045 (1.000-1.030); UROBILINOGEN NEG (NEG); ZZUR CULT IF INDIC CLEAN CATCH NO
[2017-03-13 22:35] LABS: MANUAL MICROSCOPIC REQUIRED? NO; REVIEW REQ? NO; SULFASALICYLIC ACID POS (NEG)
[2017-03-13] MEDS ORDERED: FAMO20TA11 PO (23:38)
[2017-03-13 23:45] VITALS: BP 135/91; PULSE 105; TEMP 36.4; O2SAT 93
== END 2017-03-13 23:57 | disposition home or self-care (01) ==
LOC: C.EDB 16:49
DX: R19.7 Diarrhea, unspecified (principal); J44.9 Chronic obstructive pulmonary disease, unspecified; I11.0 Hypertensive heart disease with heart failure; E11.9 Type 2 diabetes mellitus without complications; Z85.46 Personal history of malignant neoplasm of prostate; M54.5 Low back pain; G89.29 Other chronic pain; E03.9 Hypothyroidism, unspecified; M19.019 Primary osteoarthritis, unspecified shoulder; Z87.01 Personal history of pneumonia (recurrent); Z80.9 Family history of malignant neoplasm, unspecified; Z83.3 Family history of diabetes mellitus; Z82.49 Family history of ischemic heart disease and other diseases of the circulatory system; Z87.891 Personal history of nicotine dependence; Z79.899 Other long term (current) drug therapy

== ENCOUNTER 2017-04-14 18:36 | Observation (INO) | payer OTHER, BC ==
[~2017-04-14] VITALS: Ht 180.3 cm; Wt 58.0 kg
[~2017-04-14 18:36] MED LIST changes: +ACET325T96 PO; -BACI500O11 TOP; -BISA10SU5 RE; -CARV3.122 PO; +CRG3125 PO; +DOCU-94 PO; -FAMO20TA11 PO; -FURO-85 PO; +IPRASOL4 INH; +LACT1TAB4 PO; -LEVO75TA PO; +LEVO75TA5 PO; +LSN25 PO; +LSX40 PO; -LVQ500 PO; -NUTR-468 PO
[2017-04-14] MEDS ORDERED: SODIUM CHLORIDE 0.9% 1000ML 1,000 ML IV STA (19:08)
--- NOTE | 2017-04-14 19:13 | EMERGENCY ROOM VISIT NOTE ---
History Report prepared by Cesilia: Raheel Carrion Under the Supervision of: Dr. Oneil Baugh M.D. First contact with patient: 19:04 Chief Complaint: REFERRED BY DOCTOR Stated Complaint: BILIARY LEAK LEFT LOBE-REF BY History of Present Illness The patient is an 86 year old male who presents to the Emergency Room with complaints of worsening abdominal pain over the past month. Per the patient's family, the patient has been having abdominal pain worsened with eating, abdominal bloating, episodes of vomiting, and a 20 pound weight loss over the past month, so a HIDA scan was ordered by Dr. Dhillon of GI. Dr. Dhillon then called the patient and told him to come here today, because it revealed a biliary leak in the left lob. The patient states that his abdominal pain is worse today. He was here in the ED a couple weeks ago, and had a CT with contrast which did not reveal any abnormalities. The patient adds that he has had diarrhea over the past 4 days. He notes no blood thinner use. He states that his last bowel movement was this morning and it was hard. Source of History: patient, family Onset: Over past month Position: abdomen Quality: other (pain) Timing: worsening Associated Symptoms: + vomiting, + diarrhea Note: 20 pound weight loss over past month. Abdominal bloating. Review of Systems See HPI for pertinent positives and negatives. A total of ten systems were reviewed and were otherwise negative. 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, shoulder (11) Pneumonia (12) Prostate cancer (13) Sepsis Family History Cancer Diabetes mellitus Heart disease Social History Smoking Status: Former Smoker Alcohol Use: none Drug Use: none Marital Status: other Housing Status: lives alone Occupation Status: retired Current/Historical Medications Scheduled Carvedilol (Carvedilol), 3.125 MG PO BID Furosemide (Furosemide), 40 MG PO QAM Glipizide (Glipizide), 10 MG PO BIDM Lactobacillus (Floranex), 1 TAB PO BIDM Levothyroxine Sodium (Levothyroxine Sodium), 1 TAB PO DAILY Lisinopril (Lisinopril), 2.5 MG PO QAM Metformin HCl (Metformin HCl), 500 MG PO BIDM Pantoprazole (Protonix), 1 TAB PO DAILY Scheduled PRN Acetaminophen Tab (Tylenol), 650 MG PO Q4H PRN for Pain or Fever Docusate Sodium (Colace), 100 MG PO BID PRN for Constipation Ipratropium-Albuterol (Duoneb), 1 TREATMENT INH QID PRN for Shortness of Breath Allergies Coded Allergies: No Known Allergies (Unverified , 04/14/17) Physical Exam Vital Signs Date Time Temp Pulse Resp B/P (MAP) Pulse Ox O2 Delivery O2 Flow Rate FiO2 04/14/17 21:37 78 16 90/55 98 Room Air 04/14/17 19:39 83 04/14/17 18:55 36.3 97 20 88/49 96 Room Air Physical Exam GENERAL: Awake, alert, in no distress HENT: Normocephalic, atraumatic. Dry mucous membranes. EYES: Normal conjunctiva. Sclera non-icteric. NECK: Supple. No nuchal rigidity. FROM. No JVD. RESPIRATORY: Clear to auscultation. CARDIAC: Regular rate, normal rhythm. Extremities warm and well perfused. Pulses equal. ABDOMEN: Soft, non-distended. Mild epigastric and mild lower abdominal pain, no peritoneal signs. No rebound or guarding. No masses. Left direct inguinal hernia, soft, nontender to palpation. RECTAL: Deferred. MUSCULOSKELETAL: Chest examination reveals no tenderness. The back is symmetrical on inspection without obvious abnormality. There is no CVA tenderness to palpation. No joint edema. LOWER EXTREMITIES: Calves are equal size bilaterally and non-tender. No edema. No discoloration. NEURO: Normal sensorium. No sensory or motor deficits noted. SKIN: No rash or jaundice noted. Medical Decision & Procedures ER Provider Diagnostic Interpretation: X-ray: Per my interpretation, radiologist review. CHEST ONE VIEW PORTABLE CLINICAL HISTORY: ABDOMINAL PAIN/GI nausea COMPARISON STUDY: 03/13/2017 FINDINGS: The bones soft tissues and hemidiaphragms are normal. The cardiomediastinal silhouette is normal. The lungs are clear. The pulmonary vasculature is normal. IMPRESSION: Negative chest. The above report was generated using voice recognition software. It may contain grammatical, syntax or spelling errors. Electronically signed by: Jonnie Lemon M.D. 04/14/2017 7:33 PM Dictated Date/Time: 04/14/2017 7:33 PM Laboratory Results 04/14/17 19:40 Red Blood Count 4.18, Mean Corpuscular Volume 95.7, Mean Corpuscular Hemoglobin 31.1, Mean Corpuscular Hemoglobin Concent 32.5, Mean Platelet Volume 10.5, Neutrophils (%) (Auto) 53.8, Lymphocytes (%) (Auto) 32.2, Monocytes (%) (Auto) 11.9, Eosinophils (%) (Auto) 1.4, Basophils (%) (Auto) 0.4, Neutrophils # (Auto ) 4.29, Lymphocytes # (Auto) 2.56, Monocytes # (Auto) 0.95, Eosinophils # (Auto ) 0.11, Basophils # (Auto) 0.03 04/14/17 19:40 Test 04/14/17 19:40 White Blood Count 7.96 K/uL (4.8-10.8) Red Blood Count 4.18 M/uL (4.7-6.1) Hemoglobin 13.0 g/dL (14.0-18.0) Hematocrit 40.0 % (42-52) Mean Corpuscular Volume 95.7 fL (80-100) Mean Corpuscular Hemoglobin 31.1 pg (25-34) Mean Corpuscular Hemoglobin Concent 32.5 g/dl (32-36) Platelet Count 351 K/uL (130-400) Mean Platelet Volume 10.5 fL (7.4-10.4) Neutrophils (%) (Auto) 53.8 % Lymphocytes (%) (Auto) 32.2 % Monocytes (%) (Auto) 11.9 % Eosinophils (%) (Auto) 1.4 % Basophils (%) (Auto) 0.4 % Neutrophils # (Auto) 4.29 K/uL (1.4-6.5) Lymphocytes # (Auto) 2.56 K/uL (1.2-3.4) Monocytes # (Auto) 0.95 K/uL (0.11-0.59) Eosinophils # (Auto) 0.11 K/uL (0-0.5) Basophils # (Auto) 0.03 K/uL (0-0.2) RDW Standard Deviation 51.8 fL (36.4-46.3) RDW Coefficient of Variation 14.8 % (11.5-14.5) Immature Granulocyte % (Auto) 0.3 % Immature Granulocyte # (Auto) 0.02 K/uL (0.00-0.02) Prothrombin Time 11.7 SECONDS (9.0-12.0) Prothromb Time International Ratio 1.1 (0.9-1.1) Activated Partial Thromboplast Time 26.2 SECONDS (21.0-31.0) Partial Thromboplastin Ratio 1.0 Anion Gap 7.0 mmol/L (3-11) Est Creatinine Clear Calc Drug Dose 30.5 ml/min Estimated GFR () 52.0 Estimated GFR (Non- 44.9 BUN/Creatinine Ratio 30.6 (10-20) Lactic Acid Level 3.3 mmol/L (0.4-2.0) Calcium Level 8.4 mg/dl (8.5-10.1) Total Bilirubin 0.5 mg/dl (0.2-1) Direct Bilirubin 0.1 mg/dl (0-0.2) Aspartate Amino Transf (AST/SGOT) 16 U/L (15-37) Alanine Aminotransferase (ALT/SGPT) 15 U/L (12-78) Alkaline Phosphatase 45 U/L (45-117) Total Protein 6.6 gm/dl (6.4-8.2) Albumin 2.8 gm/dl (3.4-5.0) Lipase 37 U/L (73-393) Laboratory results reviewed by me Medications Administered Medications (Trade) Dose Ordered Sig/Ricky Route Start Time Stop Time Status Last Admin Dose Admin Sodium Chloride 1,000 ml @ 125 mls/hr Q8H STAT IV 04/14/17 19:08 04/14/17 23:33 DC 04/14/17 19:08 125 MLS/HR Piperacillin Sod/ Tazobactam Sod (Zosyn Iv) 4.5 gm NOW STAT IV 04/14/17 21:11 04/14/17 21:13 DC 04/14/17 21:33 4.5 GM Sodium Chloride 500 ml @ 999 mls/hr Q31M STAT IV 04/14/17 21:11 04/14/17 21:41 DC 04/14/17 21:11 999 MLS/HR ECG Indication: nausea Rate (beats per minute): 81 Rhythm: normal sinus Findings: no acute ischemic change, other (normal axis) ED Course 1904: The patient was evaluated in room A3. A complete history and physical exam was performed. 1927: I discussed the patient with Dr. Dhillon - [facility] [place] [facility] - he says it is reasonable to bring the patient in given the finding, and we could use broad spectrum antibiotics, and we need a surgical consult as well. 1951: I discussed the patient again with Dr. 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 He will reassess. 2054: Upon reexamination, the patient was resting comfortably. I discussed the test results and treatment plan with her. The patient will be evaluated for further management. 2056: I discussed the patient with Dr. Arturo Chapman residential plumber - he will evaluate the patient for further treatment. Medical Decision I reviewed the patient's past medical history, medications, and the nursing notes as described above. Differential diagnosis: Etiologies such as appendicitis, diverticulitis, PUD, biliary pathology, UTI, pancreatitis, obstruction, mesenteric ischemia, aortic pathology, infections, inflammatory bowel disease, renal colic, as well as others were entertained. The patient is an 86-year-old gentleman with a past medical history of persistent abdominal pain for the past several months who presents emergency department after having outpatient HIDA scan concerning for bile leak and referred to the ED for evaluation per hpi. Of note, the patient reports he has an elective surgery scheduled for Monday for a left inguinal hernia repair. On arrival the patient is no acute distress, afebrile stable vital signs. He was discussed with Dr. dhillon, the patient's GI specialist, who was PA had referred the patient to the emergency department. Dr. dhillon is agreeable with plan for admission for further evaluation including MRCP to further characterize the HIDA scan finding. Even if the patient has no prior procedures such as a cholecystectomy A bile leak is unlikely and perhaps HIDA scan findings are more suggestive of a biliary diverticulum. However given this finding recommends broad-spectrum antibiotics should the patient have any infectious findings. The patient is afebrile in WBC within normal limits however the patient's lactate was elevated to 3.3 thus we'll treat the patient with Zosyn. Bradley was discussed with Adela Head hospitalist, who will admit the patient for further management including MRCP, GI and surgery consultation. Medication Reconcilliation Current Medication List: was personally reviewed by me Blood Pressure Screening Patient's blood pressure: Normal blood pressure Consults Time Called: 1924 Consulting Physician: Dr. Bradley CASEY Returned Call: 1927 I discussed the patient with Dr. Bradley CASEY - he says it is reasonable to bring the patient in given the finding, and we could use broad spectrum antibiotics, and we need a surgical consult as well. Additional Consults: Time Called: -- Consulted Physician: Dr. Bradley CASEY Returned Call: 1951 Additional Comments: I discussed the patient again with Dr. 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 He will reassess. Time Called: 2054 Consulted Physician: Dr. Arturo Chapman residential plumber Returned Call: 2056 Additional Comments: I discussed the patient with Dr. Arturo Chapman residential plumber - he will evaluate the patient for further treatment. Impression Primary Impression: Epigastric abdominal pain Scribe Attestation The scribe's documentation has been prepared under my direction and personally reviewed by me in its entirety. I confirm that the note above accurately reflects all work, treatment, procedures, and medical decision making performed by me. Departure Information Dispostion Being Evaluated By Hospitalist Referrals Parminder Nava M.D. (PCP) Patient Instructions My [facility]
[2017-04-14] MEDS ORDERED: LEVO88TA3 PO (19:23)
[2017-04-14] MEDS ORDERED: PANT1TAB3 PO (19:23)
--- NOTE | 2017-04-14 19:34 | DIAGNOSTIC IMAGING REPORT ---
CHEST ONE VIEW PORTABLE CLINICAL HISTORY: ABDOMINAL PAIN/GI nausea COMPARISON STUDY: 03/13/2017 FINDINGS: The bones soft tissues and hemidiaphragms are normal. The cardiomediastinal silhouette is normal. The lungs are clear. The pulmonary vasculature is normal. IMPRESSION: Negative chest. The above report was generated using voice recognition software. It may contain grammatical, syntax or spelling errors. Electronically signed by: Jonnie Lemon M.D. 04/14/2017 7:33 PM Dictated Date/Time: 04/14/2017 7:33 PM
[2017-04-14 19:53] LABS: BASO % 0.4 %; BASO ABS # 0.03 K/uL (0-0.2); EOS % 1.4 %; EOS ABS # 0.11 K/uL (0-0.5); IG# 0.02 K/uL (0.00-0.02); LYMPH % 32.2 %; LYMPH ABS # 2.56 K/uL (1.2-3.4); MEAN CELL VOLUME 95.7 fL (80-100); MEAN CORPUSCULAR HEMOGLOBIN 31.1 pg (25-34); MEAN CORPUSCULAR HGB CONC 32.5 g/dl (32-36); MEAN PLATELET VOLUME 10.5 fL (7.4-10.4); MONO % 11.9 %; MONO ABS # 0.95 K/uL (0.11-0.59); NEUT % 53.8 %; NEUT ABS # 4.29 K/uL (1.4-6.5); PLATELET COUNT 351 K/uL (130-400); RED CELL DISTRIBUTION WIDTH CV 14.8 % (11.5-14.5); RED CELL DISTRIBUTION WIDTH SD 51.8 fL (36.4-46.3); WHITE BLOOD COUNT 7.96 K/uL (4.8-10.8)
[2017-04-14 20:02] LABS: INR 1.1 (0.9-1.1); PTT PATIENT 26.2 SECONDS (21.0-31.0)
[2017-04-14 20:28] LABS: ALBUMIN 2.8 gm/dl (3.4-5.0); CALCIUM 8.4 mg/dl (8.5-10.1); CREATININE 1.4 mg/dl (0.60-1.40); POTASSIUM 4.1 mmol/L (3.5-5.1)
[2017-04-14 20:31] LABS: TOTAL PROTEIN 6.6 gm/dl (6.4-8.2)
[2017-04-14] MEDS ORDERED: SODIUM CHLORIDE 0.9% 500ML 500 ML IV STA (21:11)
[2017-04-14] MEDS ORDERED: PIPERACILLIN/TAZOBACTAM 4.5 GM/100ML D5W IV STA (21:11)
[2017-04-14] MEDS ORDERED: IV FLUIDS COMPLETED PRN (21:45)
[2017-04-14 23:19] VITALS: BP 117/70; PULSE 90; TEMP 36.6; O2SAT 94
[2017-04-14 23:20] VITALS: Ht 180.3 cm; Wt 58.0 kg
[2017-04-14] MEDS ORDERED: SODIUM CHLORIDE 0.9% 1000ML 1,000 ML IV SCH (23:59)
[2017-04-15] MEDS ORDERED: GLUCOSE 10 TABS/TUBE PO PRN
[2017-04-15] MEDS ORDERED: GLUCAGON FOR INJ 1 MG VIAL SQ PRN
[2017-04-15] MEDS ORDERED: DEXTROSE 50% 50 ML SYR IV PRN
[2017-04-15] MEDS ORDERED: GLUCOSE 40% GEL 15 GM TUBE PO PRN
[2017-04-15] MEDS ORDERED: NURSING VERBAL MED ORDER ONE ×2 (01:45→16:30)
--- NOTE | 2017-04-15 02:13 | History and Physical ---
History & Physical Date & Time of Service: Apr 15, 2017 at 02:13 Chief Complaint: Abdominal Pain Primary Care Physician: Parminder Nava M.D. History of Present Illness Source: patient, family 86-year-old M s/p outpatient gallbladder ultrasound and HIDA scan and sent to the ED by Gastroenterology Dr. Huerta as patient has been having symptoms of 20 pound weight loss x 1 month, poor appetite due to abdominal pain after eating, and based on evaluation of the outpatient tests, it is thought that patient may have problems of the bile duct such as bile leak vs biliary diverticulum. Further workup is to be expected as inpatient as MRCP has been ordered by the admitting hospitalist physician. In the ED, patient was afebrile. Was not in distress. No acute abdominal pain but had pain with palpation of lower abdomen. Denied pain with with urination. Denied right side abdominal pain. Labs notable for Lactic acid level of 3.3 and blood cultures were sent but WBC of 8 is within normal limits. The ED physician did order 1 dose of Zosyn 4.5 gram to be given. Past Medical/Surgical History Medical Problems: (1) Abdominal aortic aneurysm (AAA) 3.0 cm to 5.5 cm in diameter in male Status: Chronic (2) Bladder cancer Status: Chronic (3) Chronic back pain Status: Chronic (4) Chronic lower back pain Status: Chronic (5) Diabetes Status: Chronic (6) Diabetic retinopathy Status: Chronic (7) Hypertension Status: Chronic (8) Hypothyroidism Status: Chronic (9) Osteoarthritis, shoulder Status: Chronic (10) Prostate cancer Status: Chronic Family History Cancer Diabetes mellitus Heart disease Social History Smoking Status: Former Smoker Drug Use: none Marital Status: other Housing status: lives alone Occupational Status: retired Immunizations History of Influenza Vaccine: Unknown History of Tetanus Vaccine?: Unknown History of Pneumococcal: Unknown History of Hepatitis B Vaccine: Unknown Multi-Drug Resistant Organisms History of MDRO: No Allergies Coded Allergies: No Known Allergies (Unverified , 04/14/17) Home Medications Scheduled Carvedilol (Carvedilol), 3.125 MG PO BID Furosemide (Furosemide), 40 MG PO QAM Glipizide (Glipizide), 10 MG PO BIDM Lactobacillus (Floranex), 1 TAB PO BIDM Levothyroxine Sodium (Levothyroxine Sodium), 1 TAB PO DAILY Lisinopril (Lisinopril), 2.5 MG PO QAM Metformin HCl (Metformin HCl), 500 MG PO BIDM Pantoprazole (Protonix), 1 TAB PO DAILY Scheduled PRN Acetaminophen Tab (Tylenol), 650 MG PO Q4H PRN for Pain or Fever Docusate Sodium (Colace), 100 MG PO BID PRN for Constipation Ipratropium-Albuterol (Duoneb), 1 TREATMENT INH QID PRN for Shortness of Breath Review of Systems Constitutional: No fever Eyes: No worsening of vision ENT: + problem reported (uses hearing aids) Respiratory: No cough, No shortness of breath Cardiovascular: No chest pain, No edema, No palpitations Abdomen: + pain, No nausea, No vomiting, No diarrhea, No constipation Musculoskeletal: No joint pain Genitourinary - Male: No dysuria Neurologic: No numbness/tingling Psychiatric: No substance abuse Endocrine: No fatigue Hematologic / Lymphatic: No abnormal bleeding/bruising Integumentary: No rash Physical Exam Vital Signs Date Time Temp Pulse Resp B/P (MAP) Pulse Ox O2 Delivery O2 Flow Rate FiO2 04/14/17 23:19 36.6 90 15 117/70 (86) 94 Room Air 04/14/17 21:37 78 16 90/55 98 Room Air 04/14/17 19:39 83 04/14/17 18:55 36.3 97 20 88/49 96 Room Air General Appearance: no apparent distress, + thin Head: normocephalic Eyes: normal inspection, EOMI, sclerae normal ENT: normal ENT inspection, pharynx normal, + pertinent finding (uses hearing aids) Neck: supple, no JVD, trachea midline Respiratory/Chest: chest non-tender, lungs clear, normal breath sounds, no respiratory distress, no accessory muscle use Cardiovascular: regular rate, rhythm, no edema, no JVD, + pertinent finding ( murmur) Abdomen/GI: normal bowel sounds, soft, no organomegaly, no pulsatile mass, + pertinent finding (lower abdominal tenderness on palpation) Back: normal inspection, no muscle spasm, normal range of motion Extremities/Musculoskelatal: no calf tenderness, no pedal edema, non-tender Neurologic/Psych: no motor/sensory deficits, alert, oriented x 3 Skin: normal color, warm/dry, no rash Diagnostics Laboratory Results Results Past 24 Hours Test 04/14/17 19:40 04/14/17 23:46 Range/Units White Blood Count 7.96 4.8-10.8 K/uL Red Blood Count 4.18 4.7-6.1 M/uL Hemoglobin 13.0 14.0-18.0 g/dL Hematocrit 40.0 42-52 % Mean Corpuscular Volume 95.7 80-100 fL Mean Corpuscular Hemoglobin 31.1 25-34 pg Mean Corpuscular Hemoglobin Concent 32.5 32-36 g/dl Platelet Count 351 130-400 K/uL Mean Platelet Volume 10.5 7.4-10.4 fL Neutrophils (%) (Auto) 53.8 % Lymphocytes (%) (Auto) 32.2 % Monocytes (%) (Auto) 11.9 % Eosinophils (%) (Auto) 1.4 % Basophils (%) (Auto) 0.4 % Neutrophils # (Auto) 4.29 1.4-6.5 K/uL Lymphocytes # (Auto) 2.56 1.2-3.4 K/uL Monocytes # (Auto) 0.95 0.11-0.59 K/uL Eosinophils # (Auto) 0.11 0-0.5 K/uL Basophils # (Auto) 0.03 0-0.2 K/uL RDW Standard Deviation 51.8 36.4-46.3 fL RDW Coefficient of Variation 14.8 11.5-14.5 % Immature Granulocyte % (Auto) 0.3 % Immature Granulocyte # (Auto) 0.02 0.00-0.02 K/uL Prothrombin Time 11.7 9.0-12.0 SECONDS Prothromb Time International Ratio 1.1 0.9-1.1 Activated Partial Thromboplast Time 26.2 21.0-31.0 SECONDS Partial Thromboplastin Ratio 1.0 Sodium Level 140 136-145 mmol/L Potassium Level 4.1 3.5-5.1 mmol/L Chloride Level 101 98-107 mmol/L Carbon Dioxide Level 32 21-32 mmol/L Anion Gap 7.0 3-11 mmol/L Blood Urea Nitrogen 43 7-18 mg/dl Creatinine 1.40 0.60-1.40 mg/dl Est Creatinine Clear Calc Drug Dose 30.5 ml/min Estimated GFR () 52.0 Estimated GFR (Non- 44.9 BUN/Creatinine Ratio 30.6 10-20 Random Glucose 215 70-99 mg/dl Lactic Acid Level 3.3 0.4-2.0 mmol/L Calcium Level 8.4 8.5-10.1 mg/dl Total Bilirubin 0.5 0.2-1 mg/dl Direct Bilirubin 0.1 0-0.2 mg/dl Aspartate Amino Transf (AST/SGOT) 16 15-37 U/L Alanine Aminotransferase (ALT/SGPT) 15 12-78 U/L Alkaline Phosphatase 45 45-117 U/L Total Protein 6.6 6.4-8.2 gm/dl Albumin 2.8 3.4-5.0 gm/dl Lipase 37 73-393 U/L Bedside Glucose 121 70-99 mg/dl Microbiology Results 04/14/17 Blood Culture, Received Pending 04/14/17 Blood Culture, Received Pending Impression Assessment and Plan 86-year-old M s/p outpatient gallbladder ultrasound and HIDA scan and sent to the ED by Gastroenterology Dr. Huerta as patient has been having symptoms of 20 pound weight loss x 1 month, poor appetite due to abdominal pain after eating, and based on evaluation of the outpatient tests, it is thought that patient may have problems of the bile duct such as bile leak vs biliary diverticulum. Further workup is to be expected as inpatient as MRCP has been ordered by the admitting hospitalist physician. In the ED, patient was afebrile. Was not in distress. No acute abdominal pain but had pain with palpation of lower abdomen. Denied pain with with urination. Denied right side abdominal pain. Labs notable for Lactic acid level of 3.3 and blood cultures were sent but WBC of 8 is within normal limits. The ED physician did order 1 dose of Zosyn 4.5 gram to be given. Abdominal pain after eating with weight loss, possible bile leak vs biliary diverticulum vs other GI etiologies -MRCP ordered -requested inpatient Gastroenterology consult Dr. Huerta to continue evaluating the patient -Continue protonics -was given IV fluids and recheck lactic acid -since abdominal pain was lower quadrant on physical exam, will check UA, patient denies worsening pain when urinating -will continue antibiotics empirically as ceftriaxone 1 gram daily for possible UTI or cystitis History of Abdominal Aortic Aneurysm, Aneurysm or common iliac artery, Bilateral kidney cysts, Hiatal Hernia -patient is hemodynamically stable. he has scheduled outpatient left inguinal hernia repair surgery for 04/17/17 as per patient's daughter History of Hypertension -continue home medications of carvedilol and lisinopril Hypothyroid -Continue home dose Levothyroxine DM - hold home oral medications for now, sliding scale insulin, fingerstick glucose History of CHF - is euvolemic on presentation, Continue home dose Lasix COPD history as per patient's daughter: nebulizers prn DVT ppx: SCD History of Prostate/Bladder Cancer in 1999 treated with radiation POLST Form: DNR/DNI Daughter: [phone] Delores uribe Primary Care: Dr. Nava, [place] [facility] [address] Dr. Mahoney, [facility] Urologist Dr Morocho, [facility] [place] Med/Surg Resuscitation Status DO NOT RESUSCITATE VTE Prophylaxis VTE Risk Assessment Done? Y/N: Yes Risk Level: Moderate Given or contraindicated: SCD's
[2017-04-15] MEDS ORDERED: DOCUSATE SODIUM 100 MG CAP PO PRN (03:00)
[2017-04-15] MEDS ORDERED: ACETAMINOPHEN 325 MG TAB PO PRN (03:00)
[2017-04-15] MEDS ORDERED: LEVOTHYROXINE 88 MCG TAB PO SCH (06:00)
[2017-04-15] MEDS: INSULIN ASPART 100 UNITS/ML 3 ML PEN SC SCH ×2 (06:00→11:57)
[2017-04-15 06:52] VITALS: BP 109/67; PULSE 92; TEMP 36.7; O2SAT 92
[2017-04-15] MEDS: ALBUT/IPRATROP 3MG/0.5MG NEB 3 ML VIAL INH SCH ×3 (07:48→15:29)
[2017-04-15 07:53] VITALS: PULSE 81; O2SAT 92
[2017-04-15] MEDS ORDERED: INSULIN ASPART 100 UNITS/ML 3 ML PEN SC SCH ×2 (08:00→17:15)
[2017-04-15] MEDS ORDERED: FUROSEMIDE 40 MG TAB PO SCH (09:00)
[2017-04-15] MEDS ORDERED: PANTOprazole SOD 40 MG TAB PO SCH (09:00)
[2017-04-15] MEDS ORDERED: LISINOPRIL 2.5 MG TAB PO SCH (09:00)
[2017-04-15] MEDS ORDERED: CARVEDILOL 3.125 MG TAB PO SCH (09:00)
[2017-04-15 10:28] LABS: BASO % 0.3 %; BASO ABS # 0.02 K/uL (0-0.2); EOS % 2.2 %; EOS ABS # 0.17 K/uL (0-0.5); HEMATOCRIT 41.2 % (42-52); HEMOGLOBIN 13.2 g/dL (14.0-18.0); IG# 0.02 K/uL (0.00-0.02); LYMPH % 29.6 %; LYMPH ABS # 2.33 K/uL (1.2-3.4); MEAN CORPUSCULAR HEMOGLOBIN 30.8 pg (25-34); MEAN PLATELET VOLUME 10.5 fL (7.4-10.4); MONO % 12.2 %; MONO ABS # 0.96 K/uL (0.11-0.59); NEUT % 55.4 %; NEUT ABS # 4.36 K/uL (1.4-6.5); PLATELET COUNT 329 K/uL (130-400); RED CELL DISTRIBUTION WIDTH CV 14.7 % (11.5-14.5); RED CELL DISTRIBUTION WIDTH SD 51.7 fL (36.4-46.3); WHITE BLOOD COUNT 7.86 K/uL (4.8-10.8)
[2017-04-15 10:58] LABS: ALBUMIN 2.6 gm/dl (3.4-5.0); CALCIUM 7.9 mg/dl (8.5-10.1); CREATININE 1.07 mg/dl (0.60-1.40); POTASSIUM 3.5 mmol/L (3.5-5.1)
[2017-04-15] MEDS ORDERED: CEFTRIAXONE SOD INJ 1 GM in DEXTROSE 5% ADD-VANTAGE 50ML 50 ML IV SCH (11:00)
[2017-04-15 11:01] LABS: TOTAL PROTEIN 6.3 gm/dl (6.4-8.2)
--- NOTE | 2017-04-15 12:41 | DIAGNOSTIC IMAGING REPORT ---
MRCP CLINICAL HISTORY: abdominal pain nausea TECHNIQUE: Multi axial MRI acquisition COMPARISON STUDY: 03/13/2017 FINDINGS: Mild bibasilar atelectatic change. Multiple right renal cysts measuring up to 4.5 cm. Left kidney demonstrates several small cysts with a mild nonspecific infiltrative change of the left renal perinephric fat. Several very small gallstones within the gallbladder. Nonobstructive bowel pattern. Aneurysmal dilatation abdominal aorta which has been described previously. The MRCP component of the study shows the biliary ductal system as well as pancreatic duct be unremarkable. There may be a component of spasm of the distal common bile duct with incomplete visibility of the common duct at the level of the sphincter. Considerable degenerative change of lumbar spine. IMPRESSION: 1. Mild left renal perinephric fat infiltrative change considered nonspecific. 2. Correlation with urinalysis is suggested to exclude possibility of pyelonephritis. 3. 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 This has been described previously and appears stable 4. Several small gallstones within a slightly distended gallbladder. 5. MRCP component of the study is unremarkable with no made only of mild spasm of the distal common duct. 7. Several right renal cysts A nonobstructive bowel pattern. The above report was generated using voice recognition software. It may contain grammatical, syntax or spelling errors. Electronically signed by: Jonnie Lemon M.D. 04/15/2017 12:40 PM Dictated Date/Time: 04/15/2017 12:33 PM
--- NOTE | 2017-04-15 14:56 | GASTROENTEROLOGY PROGRESS NOTE ---
DATE: 04/15/2017 AGE: 86. SEX: Male. RACE: . CONSULTING PHYSICIAN: Dominik Huerta DO REASON FOR CONSULTATION: Abdominal pain. HISTORY OF PRESENT ILLNESS: Lee Trinh and is an 86-year-old male who was seen as an outpatient by Karina Zhang in March. She had been working up patient for abdominal pain, weight loss and nonspecific colitis and ordered an outpatient HIDA scan. HIDA scan results returned yesterday showing a bile leak, though patient has had no instrumentation to the bile duct or previous cholecystectomy or recent surgery. Subsequently, patient was advised to come to the ER at [facility] and subsequently was admitted after discussion with ER physician and MRCP was ordered. The patient did undergo the MRCP study this morning, and findings showed mild left renal perinephric fat infiltrative change, considered nonspecific. 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 There was a nonobstructive bowel gas pattern, per Dr. Lemon who interpreted the MRCP. The patient has had symptoms over the previous few months and did undergo both an upper endoscopy and colonoscopy within the past year. The patient's daughter states that the findings of the upper endoscopy were unremarkable and on the colonoscopy, he was noted to have nonspecific colitis. He was to undergo an inguinal hernia repair on Monday of this coming week, though it was canceled by his PCP yesterday. His H&H upon arrival to the ER were unremarkable and his liver panel also was unremarkable. He denied any further complaints including chest pain, palpitation, shortness of breath, hematemesis, melena, hematochezia. He does describe intermittent abdominal pain, beginning in the mid epigastric area, radiating to both bilateral lower quadrants upon eating. He states that it does improve when he is not eating, though denies any nausea or vomiting. He has no history of chronic NSAID use and states he has never been told he had a peptic ulcer in the past. He denies any further complaints. PAST MEDICAL HISTORY: Significant for abdominal aortic aneurysm, bladder cancer, chronic back pain, diabetes, diabetic retinopathy, hypertension, hypothyroidism, osteoarthritis, and prostate cancer. PAST SURGICAL HISTORY: None. ALLERGIES: None. CURRENT MEDICATIONS: Ceftriaxone 1 gram IV q. 24 hours, Coreg 3.125 mg p.o. b.i.d., Lasix 40 mg p.o. q.a.m., Zestril 2.5 mg p.o. q.a.m., Protonix 40 mg p.o. daily, sliding scale insulin, Synthroid 88 mcg p.o. daily, Tylenol 650 mg p.o. q. 4 hours p.r.n. pain or fever, Colace 100 mg p.o. b.i.d. p.r.n. constipation, albuterol via nebulizer q.i.d. p.r.n. SOCIAL HISTORY: No tobacco, alcohol or illicit drug use. FAMILY HISTORY: Negative for GI malignancy or inflammatory bowel disease. REVIEW OF SYSTEMS: Negative x12 system review other than pertinent positives listed in the HPI. PHYSICAL EXAMINATION: VITAL SIGNS: Temperature 36.7, pulse 92, respirations 17, blood pressure 109/67, pulse ox 92% on room air. GENERAL: Awake, cooperative in no acute distress. Chronic ill-appearing. HEAD: Normocephalic, atraumatic. EYES: Pupils equally round. Extraocular muscles are intact. ENT: External evaluation of ears and nose are normal. Oropharynx is clear. NECK: Soft, supple. No JVD or lymphadenopathy. CHEST: Clear to auscultation bilaterally. CARDIOVASCULAR: Regular rate and rhythm. ABDOMEN: Soft, tender mildly in the bilateral lower quadrants, nondistended. Positive bowel sounds. There is no hepatosplenomegaly or stigmata of chronic liver disease. EXTREMITIES: No clubbing, cyanosis, or edema. Radiographic studies and laboratory studies were reviewed in the HPI. IMPRESSION: An 86-year-old male with history of diabetes and vascular disease with intermittent abdominal pain following meals. The differential diagnoses include: 1. Peptic ulcer disease. 2. Mesenteric ischemia. 3. Inflammatory bowel disease. 4. Infectious enterocolitis. In that regard, I would recommend patient be continued on Protonix 40 mg p.o. daily. I will ask Vascular Surgery to see patient secondary to possible mesenteric ischemia. I would also recommend that patient undergo an upper endoscopy and a colonoscopy as an outpatient. He can have this done by his doctor in [place] Dr. Morocho, and I would hold off on inguinal hernia repair at this time until further workup is pursued. Advance diet as tolerated. Once again, thanks for allowing me to participate in the care of this patient. If you have any further questions, please do not hesitate in contacting me.
[2017-04-15 15:29] VITALS: PULSE 90; O2SAT 93
[2017-04-15 16:00] VITALS: O2SAT 95
[2017-04-15 16:10] VITALS: BP 110/61; PULSE 92; TEMP 36.5; O2SAT 95
--- NOTE | 2017-04-15 19:14 | Discharge Instructions ---
Discharge Instructions Date of Service Apr 15, 2017. Admission Reason for Admission: Abdominal Pain Discharge Discharge Diagnosis / Problem: ABDOMINAL PAIN Discharge Goals Goal(s): Diagnostic testing, Therapeutic intervention Activity Recommendations Activity Limitations: resume your previous activity . Instructions / Follow-Up Instructions / Follow-Up PLEASE CALL PRIMARY CARE PHYSICIAN OR DR. ANNE, OR RETURN TO ER IF WITH WORSENING OF SYMPTOMS, INCREASING ABDOMINAL PAIN, NAUSEA/VOMITING, BLOOD OR BLACK STOOLS. CONTINUE TAKING PROTONIX DAILY. FOLLOW UP WITH PRIMARY CARE PHYSICIAN IN [address]EEK. FOLLOW UP WITH DR. ANNE IN 1 WEEK. Current Hospital Diet Patient's current hospital diet: Diabetes Type 2 Diet Discharge Diet Recommended Diet: AHA Diet (Heart Healthy), Diabetes Type 2 Diet Procedures Procedures Performed: MRCP Pending Studies Studies pending at discharge: no Medical Emergencies . Who to Call and When: Medical Emergencies: If at any time you feel your situation is an emergency, please call 911 immediately. . Non-Emergent Contact Non-Emergency issues call your: Primary Care Provider, Editor In Chief Newspaper Call Non-Emergent contact if: you have a fever, your pain is not controlled, your pain is worsening, you have any medication questions . . "Provider Documentation" section prepared by Myles Campuzano. . VTE Core Measure Inpt VTE Proph given/why not?: SCD's
[2017-04-15 19:50] VITALS: BP 110/61; PULSE 92; TEMP 36.5; O2SAT 95
--- NOTE | 2017-04-15 19:51 | Progress Note ---
Medicine Progress Note Date & Time of Visit: Apr 15, 2017 at 19:32. Subjective patient seen standing , ready to go home states he is feeling much better denies abdominal pain today has eaten much more than the past few weeks denies chest pain, dyspnea, palpitations, dizziness no other symptoms Objective Last 8 Hrs Date Time Temp Pulse Resp B/P (MAP) Pulse Ox O2 Delivery O2 Flow Rate FiO2 04/15/17 16:10 36.5 92 18 110/61 (77) 95 Room Air 04/15/17 16:00 95 Room Air 04/15/17 15:29 90 16 93 Room Air Physical Exam: General- oriented x 2, not in distress, speaks in sentences Head- atraumatic Eyes- EOMI, anicteric ENT- oropharynx clear Neck- supple, no JVD Lungs- clear to auscultation bilaterally Heart- regular rhythm; no murmur, normal rate Abdomen- normal bowel sounds, soft, nontender Extremities- no pretibial edema, no calf tenderness; peripheral pulses intact Neuro- alert, oriented x 3; no gross focal deficits Skin- warm & dry Laboratory Results: Last 24 Hours Test 04/14/17 19:40 04/14/17 23:46 04/15/17 05:57 04/15/17 06:07 White Blood Count 7.96 K/uL Red Blood Count 4.18 M/uL Hemoglobin 13.0 g/dL Hematocrit 40.0 % Mean Corpuscular Volume 95.7 fL Mean Corpuscular Hemoglobin 31.1 pg Mean Corpuscular Hemoglobin Concent 32.5 g/dl Platelet Count 351 K/uL Mean Platelet Volume 10.5 fL Neutrophils (%) (Auto) 53.8 % Lymphocytes (%) (Auto) 32.2 % Monocytes (%) (Auto) 11.9 % Eosinophils (%) (Auto) 1.4 % Basophils (%) (Auto) 0.4 % Neutrophils # (Auto) 4.29 K/uL Lymphocytes # (Auto) 2.56 K/uL Monocytes # (Auto) 0.95 K/uL Eosinophils # (Auto) 0.11 K/uL Basophils # (Auto) 0.03 K/uL RDW Standard Deviation 51.8 fL RDW Coefficient of Variation 14.8 % Immature Granulocyte % (Auto) 0.3 % Immature Granulocyte # (Auto) 0.02 K/uL Prothrombin Time 11.7 SECONDS Prothromb Time International Ratio 1.1 Activated Partial Thromboplast Time 26.2 SECONDS Partial Thromboplastin Ratio 1.0 Sodium Level 140 mmol/L Potassium Level 4.1 mmol/L Chloride Level 101 mmol/L Carbon Dioxide Level 32 mmol/L Anion Gap 7.0 mmol/L Blood Urea Nitrogen 43 mg/dl Creatinine 1.40 mg/dl Est Creatinine Clear Calc Drug Dose 30.5 ml/min Estimated GFR () 52.0 Estimated GFR (Non- 44.9 BUN/Creatinine Ratio 30.6 Random Glucose 215 mg/dl Lactic Acid Level 3.3 mmol/L Calcium Level 8.4 mg/dl Total Bilirubin 0.5 mg/dl Direct Bilirubin 0.1 mg/dl Aspartate Amino Transf (AST/SGOT) 16 U/L Alanine Aminotransferase (ALT/SGPT) 15 U/L Alkaline Phosphatase 45 U/L Total Protein 6.6 gm/dl Albumin 2.8 gm/dl Lipase 37 U/L Bedside Glucose 121 mg/dl 97 mg/dl Urine Color YELLOW Urine Appearance CLEAR Urine pH 5.0 Urine Specific [place] 1.019 Urine Protein TRACE Urine Glucose (UA) NEG Urine Ketones NEG Urine Occult Blood NEG Urine Nitrite NEG Urine Bilirubin NEG Urine Urobilinogen NEG Urine Leukocyte Esterase NEG Urine WBC (Auto) 1-5 /hpf Urine RBC (Auto) 0-4 /hpf Urine Hyaline Casts (Auto) 1-5 /lpf Urine Epithelial Cells (Auto) 5-10 /lpf Urine Bacteria (Auto) NEG Test 04/15/17 10:10 04/15/17 11:55 04/15/17 17:38 White Blood Count 7.86 K/uL Red Blood Count 4.29 M/uL Hemoglobin 13.2 g/dL Hematocrit 41.2 % Mean Corpuscular Volume 96.0 fL Mean Corpuscular Hemoglobin 30.8 pg Mean Corpuscular Hemoglobin Concent 32.0 g/dl Platelet Count 329 K/uL Mean Platelet Volume 10.5 fL Neutrophils (%) (Auto) 55.4 % Lymphocytes (%) (Auto) 29.6 % Monocytes (%) (Auto) 12.2 % Eosinophils (%) (Auto) 2.2 % Basophils (%) (Auto) 0.3 % Neutrophils # (Auto) 4.36 K/uL Lymphocytes # (Auto) 2.33 K/uL Monocytes # (Auto) 0.96 K/uL Eosinophils # (Auto) 0.17 K/uL Basophils # (Auto) 0.02 K/uL RDW Standard Deviation 51.7 fL RDW Coefficient of Variation 14.7 % Immature Granulocyte % (Auto) 0.3 % Immature Granulocyte # (Auto) 0.02 K/uL Sodium Level 141 mmol/L Potassium Level 3.5 mmol/L Chloride Level 103 mmol/L Carbon Dioxide Level 33 mmol/L Anion Gap 5.0 mmol/L Blood Urea Nitrogen 34 mg/dl Creatinine 1.07 mg/dl Est Creatinine Clear Calc Drug Dose 39.9 ml/min Estimated GFR () 72.0 Estimated GFR (Non- 62.1 BUN/Creatinine Ratio 32.0 Random Glucose 120 mg/dl Lactic Acid Level 0.9 mmol/L Calcium Level 7.9 mg/dl Magnesium Level 1.7 mg/dl Total Bilirubin 0.5 mg/dl Aspartate Amino Transf (AST/SGOT) 14 U/L Alanine Aminotransferase (ALT/SGPT) 14 U/L Alkaline Phosphatase 41 U/L Total Protein 6.3 gm/dl Albumin 2.6 gm/dl Globulin 3.7 gm/dl Albumin/Globulin Ratio 0.7 Bedside Glucose 128 mg/dl 138 mg/dl Date/Time Source Procedure Growth Status 04/14/17 21:51 Blood Blood Culture Pending Received 04/14/17 21:37 Blood Blood Culture Pending Received Assessment & Plan 86-year-old M s/p outpatient gallbladder ultrasound and HIDA scan and sent to the ED by Gastroenterology Case as patient has been having symptoms of 20 pound weight loss x 1 month, poor appetite due to abdominal pain after eating, and based on evaluation of the outpatient tests, it is thought that patient may have problems of the bile duct such as bile leak vs biliary diverticulum. Post Prandial Abdominal pain - associated with weight loss -MRCP ordered: IMPRESSION: 1. Mild left renal perinephric fat infiltrative change considered nonspecific. 2. Correlation with urinalysis is suggested to exclude possibility of pyelonephritis. 3. 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 This has been described previously and appears stable 4. Several small gallstones within a slightly distended gallbladder. 5. MRCP component of the study is unremarkable with no made only of mild spasm of the distal common duct. 7. Several right renal cysts -- evaluated by Dr. Huerta possible differentials include Peptic Ulcer Disease, Infectious Enterocolitis , IBD Mesenteric ischemia unlikely as patient's CT angio in March 2017 showed widely patent mesenteric arteries, discussed with Dr. Larios -- continue Protonix continue close outpatient ff up with Dr. Huerta, recommending outpatient EGD and Colonoscopy, hold off Hernia Repair History of Abdominal Aortic Aneurysm, Aneurysm or common iliac artery, Bilateral kidney cysts, Hiatal Hernia - per MRCP, Aneurysm stable - ff up above as outpatient History of Hypertension -continue home medications of carvedilol and lisinopril Hypothyroid -Continue home dose Levothyroxine DM - continue oral medications for DM History of CHF - is euvolemic on presentation, Continue home dose Lasix COPD history- stable DVT ppx: SCD History of Prostate/Bladder Cancer in 1999 treated with radiation POLST Form: DNR/DNI ff up with: Primary Care: Jessica Cervantes in 1 [address] [employer] [address]. Mahoney, [facility] Morocho, [facility] [place] Current Inpatient Medications: Current Inpatient Medications Medications (Trade) Dose Ordered Sig/Ricky Route Start Time Stop Time Status Last Admin Dose Admin Miscellaneous (Iv Fluids Completed) 1 ea PRN PRN N/A 04/14/17 21:45 04/14/18 21:44 Glucose (Glucose 40% Gel) 15-30 GRAMS 15 GRAMS... UD PRN PO 04/15/17 00:00 05/15/17 00:00 Glucose (Glucose Chew Tab) 4-8 Tablets 4 Tabl... UD PRN PO 04/15/17 00:00 05/15/17 00:00 Dextrose (Dextrose 50% 50ML Syringe) 25-50ML OF 50% DW IV FOR... UD PRN IV 04/15/17 00:00 05/15/17 00:00 Glucagon (Glucagon Inj) 1 mg UD PRN SQ 04/15/17 00:00 05/15/17 00:00 Acetaminophen (Tylenol Tab) 650 mg Q4H PRN PO 04/15/17 03:00 05/15/17 02:59 Carvedilol (Coreg Tab) 3.125 mg BID PO 04/15/17 09:00 05/15/17 08:59 04/15/17 09:24 3.125 MG Docusate Sodium (coLACE CAP) 100 mg BID PRN PO 04/15/17 03:00 05/15/17 02:59 Furosemide (Lasix Tab) 40 mg QAM PO 04/15/17 09:00 05/15/17 08:59 04/15/17 09:23 40 MG Levothyroxine Sodium (Synthroid Tab) 88 mcg DAILYBB PO 04/15/17 06:00 05/15/17 05:59 04/15/17 06:27 88 MCG Lisinopril (Zestril Tab) 2.5 mg QAM PO 04/15/17 09:00 05/15/17 08:59 04/15/17 09:24 2.5 MG Pantoprazole Sodium (Protonix Tab) 40 mg DAILY PO 04/15/17 09:00 05/15/17 08:59 04/15/17 09:23 40 MG Albuterol/ Ipratropium (Duoneb) 3 ml QIDR INH 04/15/17 08:00 05/15/17 07:59 04/15/17 07:48 3 ML Ceftriaxone Sodium 1 gm/ Dextrose 50 ml @ 100 mls/hr Q24H IV 04/15/17 11:00 04/17/17 10:59 04/15/17 12:03 100 MLS/HR Pneumococcal Polysaccharide Vaccine (Pneumovax-23 Inj) 25 mcg ONCE ONCE IM. 04/15/17 20:00 04/15/17 20:01 Insulin Aspart (novoLOG ASPART) SLIDING SCALE If C... ACHS SC 04/15/17 17:15 05/15/17 17:14
--- NOTE | 2017-04-15 19:54 | Discharge Summary ---
Discharge Summary Date of Service Apr 15, 2017. Discharge Summary Admission Date: Apr 14, 2017 at 21:39 Discharge Date: Apr 15, 2017 Discharge Disposition: Home Principal Diagnosis: Post Prandial Abdominal pain Secondary Diagnoses/Problems: Please refer to hospital course below. Procedures: MRCP CLINICAL HISTORY: abdominal pain nausea TECHNIQUE: Multi axial MRI acquisition COMPARISON STUDY: 03/13/2017 FINDINGS: Mild bibasilar atelectatic change. Multiple right renal cysts measuring up to 4.5 cm. Left kidney demonstrates several small cysts with a mild nonspecific infiltrative change of the left renal perinephric fat. Several very small gallstones within the gallbladder. Nonobstructive bowel pattern. Aneurysmal dilatation abdominal aorta which has been described previously. The MRCP component of the study shows the biliary ductal system as well as pancreatic duct be unremarkable. There may be a component of spasm of the distal common bile duct with incomplete visibility of the common duct at the level of the sphincter. Considerable degenerative change of lumbar spine. IMPRESSION: 1. Mild left renal perinephric fat infiltrative change considered nonspecific. 2. Correlation with urinalysis is suggested to exclude possibility of pyelonephritis. 3. 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 This has been described previously and appears stable 4. Several small gallstones within a slightly distended gallbladder. 5. MRCP component of the study is unremarkable with no made only of mild spasm of the distal common duct. 7. Several right renal cysts A nonobstructive bowel pattern. The above report was generated using voice recognition software. It may contain grammatical, syntax or spelling errors. Consultations: GI Case Pending Studies/Follow-Up: Please refer to hospital course below. Medication Reconciliation Continued Medications: Acetaminophen Tab (Tylenol) 325 Mg Tab 650 MG PO Q4H PRN for Pain or Fever, TAB NEEDED FOR MILD PAIN OR FEVER GREATER THAN 100 F. MAXIMUM 3 GMS APAP/24 HOURS. Carvedilol (Carvedilol) 3.125 Mg Tab 3.125 MG PO BID Docusate Sodium (Colace) 100 Mg Cap 100 MG PO BID PRN for Constipation, CAP Furosemide (Furosemide) 40 Mg Tab 40 MG PO QAM Glipizide (Glipizide) 10 Mg Tab 10 MG PO BIDM Ipratropium-Albuterol (Duoneb) 3 Ml Nebu 1 TREATMENT INH QID PRN for Shortness of Breath, INHA Lactobacillus (Floranex) 1 Tab Tab 1 TAB PO BIDM Levothyroxine Sodium (Levothyroxine Sodium) 88 Mcg Tab 1 TAB PO DAILY Lisinopril (Lisinopril) 2.5 Mg Tab 2.5 MG PO QAM Metformin HCl (Metformin HCl) 500 Mg Tab 500 MG PO BIDM Pantoprazole (Protonix) 40 Mg Tab 1 TAB PO DAILY Admission Information HPI (per Admitting provider): 86-year-old M s/p outpatient gallbladder ultrasound and HIDA scan and sent to the ED by Gastroenterology Dr. Huerta as patient has been having symptoms of 20 pound weight loss x 1 month, poor appetite due to abdominal pain after eating, and based on evaluation of the outpatient tests, it is thought that patient may have problems of the bile duct such as bile leak vs biliary diverticulum. Further workup is to be expected as inpatient as MRCP has been ordered by the admitting hospitalist physician. In the ED, patient was afebrile. Was not in distress. No acute abdominal pain but had pain with palpation of lower abdomen. Denied pain with with urination. Denied right side abdominal pain. Labs notable for Lactic acid level of 3.3 and blood cultures were sent but WBC of 8 is within normal limits. The ED physician did order 1 dose of Zosyn 4.5 gram to be given. Physical Exam (per Admitting): General Appearance: no apparent distress, + thin Head: normocephalic Eyes: normal inspection, EOMI, sclerae normal ENT: normal ENT inspection, pharynx normal, + pertinent finding (uses hearing aids) Neck: supple, no JVD, trachea midline Respiratory/Chest: chest non-tender, lungs clear, normal breath sounds, no respiratory distress, no accessory muscle use Cardiovascular: regular rate, rhythm, no edema, no JVD, + pertinent finding (murmur) Abdomen/GI: normal bowel sounds, soft, no organomegaly, no pulsatile mass, + pertinent finding (lower abdominal tenderness on palpation) Back: normal inspection, no muscle spasm, normal range of motion Extremities/Musculoskelatal: no calf tenderness, no pedal edema, non-tender Neurologic/Psych: no motor/sensory deficits, alert, oriented x 3 Skin: normal color, warm/dry, no rash Hospital Course 86-year-old M s/p outpatient gallbladder ultrasound and HIDA scan and sent to the ED by Gastroenterology Dr. Huerta as patient has been having symptoms of 20 pound weight loss x 1 month, poor appetite due to abdominal pain after eating, and based on evaluation of the outpatient tests, it is thought that patient may have problems of the bile duct such as bile leak vs biliary diverticulum. Post Prandial Abdominal pain - associated with weight loss -MRCP ordered: IMPRESSION: 1. Mild left renal perinephric fat infiltrative change considered nonspecific. 2. Correlation with urinalysis is suggested to exclude possibility of pyelonephritis. 3. 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 This has been described previously and appears stable 4. Several small gallstones within a slightly distended gallbladder. 5. MRCP component of the study is unremarkable with no made only of mild spasm of the distal common duct. 7. Several right renal cysts -- evaluated by Dr. Huerta possible differentials include Peptic Ulcer Disease, Infectious Enterocolitis , IBD Mesenteric ischemia unlikely as patient's CT angio in March 2017 showed widely patent mesenteric arteries, discussed with Dr. Larios -- continue Protonix continue close outpatient ff up with Dr. Huerta, recommending outpatient EGD and Colonoscopy, hold off Hernia Repair History of Abdominal Aortic Aneurysm, Aneurysm or common iliac artery, Bilateral kidney cysts, Hiatal Hernia - per MRCP, Aneurysm stable - ff up above as outpatient History of Hypertension -continue home medications of carvedilol and lisinopril Hypothyroid -Continue home dose Levothyroxine DM - continue oral medications for DM History of CHF - is euvolemic on presentation, Continue home dose Lasix COPD history- stable DVT ppx: SCD History of Prostate/Bladder Cancer in 1999 treated with radiation POLST Form: DNR/DNI ff up with: Primary Care: Jessica Cervantes in 1 week Industrial Equipment Mechanic Preschool Teacher'S Assistant Dr. Mahoney, [facility] Urologist Dr Morocho, [facility] [place] Total time spent on discharge = 30 minutes This includes examination of the patient, discharge planning, medication reconciliation, and communication with other providers. Discharge Instructions Discharge Instructions Date of Service Apr 15, 2017. Admission Reason for Admission: Abdominal Pain Discharge Discharge Diagnosis / Problem: ABDOMINAL PAIN Discharge Goals Goal(s): Diagnostic testing, Therapeutic intervention Activity Recommendations Activity Limitations: resume your previous activity . Instructions / Follow-Up Instructions / Follow-Up PLEASE CALL PRIMARY CARE PHYSICIAN OR DR. HUERTA, OR RETURN TO ER IF WITH WORSENING OF SYMPTOMS, INCREASING ABDOMINAL PAIN, NAUSEA/VOMITING, BLOOD OR BLACK STOOLS. CONTINUE TAKING PROTONIX DAILY. FOLLOW UP WITH PRIMARY CARE PHYSICIAN IN 1 WEEK. FOLLOW UP WITH DR. HUERTA IN 1 WEEK. Current Hospital Diet Patient's current hospital diet: Diabetes Type 2 Diet Discharge Diet Recommended Diet: AHA Diet (Heart Healthy), Diabetes Type 2 Diet Procedures Procedures Performed: MRCP Pending Studies Studies pending at discharge: no Medical Emergencies . Who to Call and When: Medical Emergencies: If at any time you feel your situation is an emergency, please call 911 immediately. . Non-Emergent Contact Non-Emergency issues call your: Primary Care Provider, Industrial Equipment Mechanic Call Non-Emergent contact if: you have a fever, your pain is not controlled, your pain is worsening, you have any medication questions . . "Provider Documentation" section prepared by Myles Campuzano. . VTE Core Measure Inpt VTE Proph given/why not?: SCD's
[2017-04-15] MEDS ORDERED: PNEUMOCOCCAL ADMINISTRATION CHARGE ONE (20:00)
[2017-04-15] MEDS ORDERED: PNEUMOCOCCAL POLYSACCHARIDES 25 MCG/0.5 ML VIAL/SYR IM. ONE (20:00)
== END 2017-04-15 20:20 | disposition home or self-care (01) ==
LOC: C.EDB 18:37 → C.MSW 21:39 → CANRESERV 22:02 → ENRESERV 22:02
PROVIDERS: ADMIT Hospitalist; ATTEND Internal Medicine
DX: R10.9 Unspecified abdominal pain (principal); E03.9 Hypothyroidism, unspecified; I71.4 Abdominal aortic aneurysm, without rupture; I10 Essential (primary) hypertension; E11.319 Type 2 diabetes mellitus with unspecified diabetic retinopathy without macular edema; Z87.891 Personal history of nicotine dependence; Z85.46 Personal history of malignant neoplasm of prostate; Z85.51 Personal history of malignant neoplasm of bladder; Z83.3 Family history of diabetes mellitus; Z82.49 Family history of ischemic heart disease and other diseases of the circulatory system; Z79.899 Other long term (current) drug therapy; Z79.84 Long term (current) use of oral hypoglycemic drugs; Z66 Do not resuscitate

== ENCOUNTER 2018-11-19 07:40 | Inpatient (IN) ==
[2018-11-19] MEDS ORDERED: ONDANSETRON INJ 2 MG/ML 2 ML VIAL IV PRN (09:39)
[2018-11-19] MEDS ORDERED: SODIUM CHLORIDE 0.9% 1000ML 1,000 ML IV SCH (09:45)
[2018-11-19] MEDS ORDERED: ALBUT/IPRATROP 3MG/0.5MG NEB 3 ML VIAL NEB PRN (09:46)
--- NOTE | 2018-11-19 10:08 | History & Physical Report ---
Date of Service November 19, 2018 Assessment & Plan (1) Multifocal pneumonia: progressive cough for days, getting worse had subjective fever/chills at home, WBC was 10k at [place] CXR with multifocal pneumonia no distress, vitals stable will continue on Levaquin 750mg IV daily, received a dose at [place] blood cultures drawn at [place] no signs of sepsis (2) COPD (chronic obstructive pulmonary disease): with mild exacerbation, wheezing on exam will treat with Solu Medrol 40 IV Q12 Duoneb QID PRN for shortness of breath, wheezing (3) Chronic respiratory failure with hypoxia: chronically on 2L NC, has been on this for a few weeks no increased work of breathing, no distress despite the pneumonia and COPD (4) DM type 2 (diabetes mellitus, type 2): will hold oral agents and use Novolog SS, correction factor 20 and carb ratio 8 may need to add Lantus but will wait and see monitor for any hypoglycemia (5) Chronic heart failure: BNP very high but could be due to pneumonia will order echo resume Lasix tomorrow (6) Hypothyroidism: continue Synthroid (7) GERD (gastroesophageal reflux disease): continue PPI (8) DVT prophylaxis: Heparin SC History of Present Illness Chief Complaint: "I feel lousy" Primary Care Provider: Parminder Nava MD 88 yo male with history of DM type II, chronic heart failure, HTN, COPD, Hypothyroidism and recent history of falls the past 6 months presents to [facility] from [place] ED after presenting with pneumonia. History is somewhat difficult to obtain because the patient is hard of hearing and his memory has some gaps in it, tends to jump from topic to topic. He reports that he was hospitalized in April 2018 for 9 days and since that time he has had several stays in rehab. He has been in a SNF in [place], two or three times based on his memory. He recently returned to living at home. He says he was feeling ill for the past few days. Progressive cough with some sputum production, does not know the color, has not seen blood. He feels a little more short of breath. He has experienced some fevers and chills and sweats at home. His appetite has been okay. No recent falls. He denies abdominal pain, vomiting, diarrhea. He will experience some swelling in ankles on and off again. No recent swelling. In the ED at [place] he was found to have infiltrates in right lung on chest x-ray. EKG was without ischemic changes. Troponin was minimally elevated. BNP was markedly elevated. WBC slightly high at 10k. BMP showed stable renal function and electrolytes. Discussed with patient's daughter at the bedside. She was able to give a little more detail. He had been coughing for almost a week, getting progressively worse, more sputum production. Last evening he got profoundly weak, she could not get him out of bed so she called the EMS. She says he was eating pretty well the past few days. He did not have any nausea/vomiting, diarrhea, chest pain to her knowledge. Allergies Allergy/AdvReac Type Severity Reaction Status Date / Time No Known Allergies Allergy Unverified 04/14/17 19:25 Home Medications Home Medications Medication Instructions Recorded Confirmed Type Glipizide 10 mg PO BIDM #0 11/02/14 11/19/18 History Metformin HCl 500 mg PO BIDM #0 04/02/16 11/19/18 History Acetaminophen Tab (TYLENOL) 650 mg PO Q4H PRN #0 tab 11/08/16 11/19/18 History IPRATROPIUM-ALBUTEROL (DUONEB) 1 treatment INHALATION QID PRN #0 11/08/16 11/19/18 History inh LACTOBACILLUS (FLORANEX) 1 tab PO BIDM #0 11/08/16 11/19/18 History Lisinopril 2.5 mg PO QAM #0 11/08/16 11/19/18 History Carvedilol 3.125 mg PO BID #0 03/13/17 11/19/18 History Furosemide 40 mg PO QAM #0 03/13/17 11/19/18 History LEVOTHYROXINE SODIUM 1 tab PO DAILY #0 04/14/17 11/19/18 History PANTOPRAZOLE (PROTONIX) 1 tab PO DAILY #0 04/14/17 11/19/18 History fluticasone furoate-vilanterol 25 inh INHALATION DAILY 11/19/18 11/19/18 History [Breo Ellipta] Past Med/Surg History Family History Other Diabetes Hypertension Social History Preferred Language: Kiswahili Communication Ability: very [place] Beliefs That Will Affect Care: None marital status: / Current Living Situation: Alone Other Information That Helps Us Care for You: No Feels Safe at Home: Yes Safety Concerns: Feels Safe At This Time Smoking Status: Never smoker Hx Alcohol Use: No Hx Substance Use: No Review of Systems Review of Systems: All systems reviewed & are unremarkable except as noted in HPI & below Constitutional: + fever, + chills, + sweats, + fatigue and + weakness Respiratory: + cough, + dyspnea and + sputum production Cardiovascular: + dyspnea on exertion and + edema (trace, bilaterally); no chest pain and no chest pain at rest Gastrointestinal: no abdominal pain, no nausea, no vomiting, no constipation and no diarrhea/loose stools Musculoskeletal: + muscle weakness (in legs bilaterally) Physical Exam Constitutional: WD/WN, vitals as above Eyes: PERRL, conjunctivae normal, anicteric sclerae ENMT: external ear and nose normal, oropharynx normal Neck: trachea midline, no thyromegaly Respiratory: Auscultation: + diminished lung sounds, + crackles (left lower lobe), + rhonchi (bilaterally) and + wheezes (bilaterally, more pronounced posteriorly) Cardiovascular: RRR, no murmur, no edema Gastrointestinal (Abdomen): normal bowel sounds, soft, nontender, no hepatosplenomegaly Musculoskeletal: no cyanosis or clubbing, extremities motor strength 5/5 Skin: no rashes, warm and dry Neurologic: patellar DTR's 2+ bilat, sensation intact and PERRL, EOMI, accommodation nl, no face palsy, no dysarthria Psychiatric: A+Ox3, euthymic affect Lymphatic: no cervical or axillary lymphadenopathy Results & Data Vital Signs (Past 12 Hours) Vital Signs Temp Pulse Resp BP Pulse Ox 11/19/18 09:34 36.8 C 110 H 20 128/65 94 Laboratory Results Laboratory Results - last 24 hr 11/19/18 11/19/18 11/19/18 11:18 11:18 11:18 WBC 7.83 RBC 3.43 L Hgb 10.2 L Hct 32.9 L MCV 95.9 MCH 29.7 MCHC 31.0 L RDW Std Deviation 52.4 H RDW Coeff of Trinh 15.0 H Plt Count 367 MPV 9.2 Immature Gran % (Auto) 0.6 Neut % (Auto) 88.1 Lymph % (Auto) 10.0 [place] % (Auto) 0.8 Eos % (Auto) 0.1 Baso % (Auto) 0.4 Immature Gran # (Auto) 0.05 H Neut # (Auto) 6.90 H Lymph # (Auto) 0.78 L [place] # (Auto) 0.06 L Eos # (Auto) 0.01 Baso # (Auto) 0.03 PT 12.1 H INR 1.2 H Sodium Potassium Chloride Carbon Dioxide Anion Gap BUN Creatinine 1.14 Est Cr Clr Drug Dosing 41.9 Est GFR ( Amer) 65.7 Est GFR (Non-Af Amer) 56.7 BUN/Creatinine Ratio Glucose POC Glucose Calcium 11/19/18 11/19/18 11/19/18 12:16 13:56 14:34 WBC RBC Hgb Hct MCV MCH MCHC RDW Std Deviation RDW Coeff of Trinh Plt Count MPV Immature Gran % (Auto) Neut % (Auto) Lymph % (Auto) [place] % (Auto) Eos % (Auto) Baso % (Auto) Immature Gran # (Auto) Neut # (Auto) Lymph # (Auto) [place] # (Auto) Eos # (Auto) Baso # (Auto) PT INR Sodium 141 Potassium 4.3 Chloride 98 Carbon Dioxide 39 H Anion Gap 4.0 BUN 33 H Creatinine 1.16 Est Cr Clr Drug Dosing 41.2 Est GFR ( Amer) 64.4 Est GFR (Non-Af Amer) 55.5 BUN/Creatinine Ratio 28.4 H Glucose 300 H POC Glucose 318 H* 252 H Calcium 8.4 L Medications Administered Current Inpatient Medications Acetaminophen (Tylenol) 650 mg PO Q4H PRN PRN Reason: pain/fever Stop: 12/19/18 09:38 Albuterol (Duoneb) 3 ml NEB QIDR PRN PRN Reason: Dyspnea Stop: 12/19/18 10:59 Carvedilol (Coreg) 3.125 mg PO BID [facility] Stop: 12/19/18 20:59 Heparin Sodium (Porcine) (Heparin Sodium (Porcine)) 5,000 units SQ Q8 KELY Stop: 12/19/18 13:59 Last Admin: 11/19/18 13:27 Dose: 5,000 units Documented by: Sodium Chloride (Nss 1000ml) 1,000 mls @ 80 mls/hr IV .[id number] KELY Stop: 11/19/18 22:14 Last Admin: 11/19/18 10:43 Dose: 80 mls/hr Documented by: Levofloxacin/Dextrose (Levaquin/D5w) 750 mg in 150 mls @ 100 mls/hr IV Q48H [facility]; Protocol Stop: 11/28/18 08:59 Methylprednisolone 40 mg/ (Syringe) 0.64 mls @ 1.5 mls/min IV Q12 KELY Stop: 12/19/18 11:29 Last Admin: 11/19/18 13:27 Dose: 1.5 mls/min Documented by: Insulin Aspart (Novolog Flexpen) 0 units SC ACHS [facility] Stop: 12/19/18 11:29 Last Admin: 11/19/18 13:26 Dose: 17 units Documented by: Lactobacillus Acidophilus (Floranex) 1 tab PO BIDM [facility] Stop: 12/19/18 16:59 Levothyroxine Sodium (Synthroid) 88 mcg PO DAILYBB [facility] Stop: 12/20/18 06:29 Ondansetron HCl (Zofran) 4 mg IV Q6H PRN PRN Reason: Nausea Stop: 12/19/18 09:38 Pantoprazole Sodium (Protonix) 40 mg PO DAILY [facility] Stop: 12/20/18 08:59 Code Status & VTE Plan Code Status Full code VTE Prophylaxis Plan VTE Prophylaxis will be ordered: Yes PG Care Time/CCT Total # of Minutes Spent Total Time Spent with Patient: Total time spent is greater than 50% in coordination of care (as documented) at patient's floor/unit and/or counseling patient:
[2018-11-19] MEDS ORDERED: PATIENT'S HEIGHT AND/OR WEIGHT NEEDED SCH (10:10)
[2018-11-19] MEDS ORDERED: LEVOFLOXACIN/D5W 750 MG/150 ML BAG IV STA (11:19)
[2018-11-19 11:30] LABS: Basophils # (auto) 0.03 K/uL (0-0.2); Basophils % (auto) 0.4 %; Eosinophils # (auto) 0.01 K/uL (0-0.5); Eosinophils % (auto) 0.1 %; Hematocrit (blood only) 32.9 % (42-52); Hemoglobin 10.2 g/dL (14.0-18.0); Immature Granulocytes # (auto) 0.05 K/uL (0.00-0.02); Immature Granulocytes % (auto) 0.6 %; Lymphocytes # (auto) 0.78 K/uL (1.2-3.4); Mean Corpuscular Volume 95.9 fL (80-100); Mean Platelet Volume 9.2 fL (7.4-10.4); Monocytes # (auto) 0.06 K/uL (0.11-0.59); Monocytes % (auto) 0.8 %; Neutrophils % (auto) 88.1 %; Platelet Count 367 K/uL (130-400); RDW Standard Deviation 52.4 fL (36.4-46.3); Red Blood Count 3.43 M/uL (4.7-6.1); White Blood Count 7.83 K/uL (4.8-10.8)
[2018-11-19 11:39] LABS: INR 1.2 (0.9-1.1); Prothrombin Time 12.1 Seconds (9.0-12.0)
[2018-11-19 11:47] LABS: Creatinine Clr Calc Pharmacy 41.9 ml/min; Est GFR (African American) 65.7; Est GFR (Non-African American) 56.7
[2018-11-19] MEDS: INSULIN ASPART 100 UNITS/ML 3 ML PEN SC SCH ×4 (13:26→21:59)
[2018-11-19] MEDS: methylPREDNISolone 40 MG in SYRINGE 0 ML IV SCH ×3 (13:27→22:00)
[2018-11-19] MEDS: HEPARIN SOD 5,000 UNIT/0.5 ML VIAL SQ SCH ×2 (13:27→21:54)
--- NOTE | 2018-11-19 13:27 | XRay Report ---
XR chest 2V routine CLINICAL HISTORY: Dyspnea, cough COMPARISON STUDY: Chest CT November 08, 2016. Chest radiograph April 14, 2017. FINDINGS: There is no pneumothorax. There are trace bilateral pleural effusions. Interstitial thicken ing and bilateral opacities, greater within the right lung, are noted. There is underlying emphysema. Mild enlargement of the cardiac silhouette is noted. Incidental note is made of an old right clavicu lar fracture and severe osteoarthritis of the right glenohumeral joint. IMPRESSION: 1. Bilateral airspace opacities and interstitial thickening. Multifocal pneumonia is favored however pulmonary edema could appear similar. Radiographic follow-up to ensure resolution is recommended. 2. Trace bilateral pleural effusions. Electronically signed by: Carroll Coreas M.D. 11/19/2018 1:26 PM
[2018-11-19 14:41] LABS: BUN Creatinine Ratio 28.4 (10-20); Calcium 8.4 mg/dl (8.5-10.1); Creatinine Clr Calc Pharmacy 41.2 ml/min; Est GFR (African American) 64.4; Est GFR (Non-African American) 55.5; Potassium 4.3 mmol/L (3.5-5.1)
[2018-11-19] MEDS: LACTOBACILLUS ACIDOPHILUS (FLORANEX) TAB PO SCH (18:39)
[2018-11-19] MEDS: CARVEDILOL 3.125 MG TAB PO SCH ×2 (21:49→21:59)
[2018-11-20] MEDS: LEVOTHYROXINE SODIUM 88 MCG TABLET PO SCH (06:07)
[2018-11-20] MEDS: HEPARIN SOD 5,000 UNIT/0.5 ML VIAL SQ SCH ×3 (06:07→22:42)
[2018-11-20] MEDS: PANTOprazole 40 MG TAB PO SCH (07:37)
[2018-11-20] MEDS: methylPREDNISolone 40 MG in SYRINGE 0 ML IV SCH ×2 (07:37→22:37)
[2018-11-20] MEDS: CARVEDILOL 3.125 MG TAB PO SCH ×2 (07:37→22:41)
[2018-11-20] MEDS: LACTOBACILLUS ACIDOPHILUS (FLORANEX) TAB PO SCH ×2 (07:37→17:50)
[2018-11-20] MEDS: INSULIN ASPART 100 UNITS/ML 3 ML PEN SC SCH ×4 (07:39→22:34)
[2018-11-20] MEDS: FUROSEMIDE 40 MG TAB PO SCH (07:55)
[2018-11-20 08:44] LABS: Basophils # (auto) 0.02 K/uL (0-0.2); Basophils % (auto) 0.1 %; Hemoglobin 10.1 g/dL (14.0-18.0); Immature Granulocytes # (auto) 0.04 K/uL (0.00-0.02); Immature Granulocytes % (auto) 0.3 %; Lymphocytes # (auto) 2.47 K/uL (1.2-3.4); Lymphocytes % (auto) 17.2 %; Mean Corpuscular Hgb Conc 31.6 g/dL (32-36); Mean Corpuscular Volume 94.4 fL (80-100); Mean Platelet Volume 9.8 fL (7.4-10.4); Monocytes # (auto) 1.78 K/uL (0.11-0.59); Monocytes % (auto) 12.4 %; Neutrophils # (auto) 10.07 K/uL (1.4-6.5); Platelet Count 391 K/uL (130-400); RDW Coefficient of Variation 15.3 % (11.5-14.5); RDW Standard Deviation 52.2 fL (36.4-46.3); Red Blood Count 3.39 M/uL (4.7-6.1); White Blood Count 14.38 K/uL (4.8-10.8)
[2018-11-20 09:08] LABS: BUN Creatinine Ratio 30.7 (10-20); Calcium 8.5 mg/dl (8.5-10.1); Creatinine Clr Calc Pharmacy 37.9 ml/min; Est GFR (African American) 58.2; Est GFR (Non-African American) 50.2; Potassium 4.2 mmol/L (3.5-5.1)
--- NOTE | 2018-11-20 10:04 | Hospitalist Progress Note ---
Date of Service November 20, 2018 Assessment & Plan (1) Multifocal pneumonia: progressive cough for days, getting worse had subjective fever/chills at home, WBC was 10k at [place] CXR with multifocal pneumonia, more prominent on right side no distress, vitals stable, WBC up to 14k but likely due to steroids will continue on Levaquin 750mg IV daily, complete 7 days total blood cultures drawn at [place], will call tomorrow for any results no signs of sepsis lungs better today, no wheezing, still with rhonchi bilaterally, cough is strong will get speech eval today (2) COPD (chronic obstructive pulmonary disease): with mild exacerbation, wheezing on exam at the time of admission no wheezing today, no distress will treat with Solu Medrol 40 IV Q12, change to Prednisone tomorrow Duoneb QID PRN for shortness of breath, wheezing (3) Chronic respiratory failure with hypoxia: chronically on 2L NC, has been on this for a few weeks no increased work of breathing, no distress despite the pneumonia and COPD (4) DM type 2 (diabetes mellitus, type 2): will hold oral agents and use Novolog SS, correction factor 20 and carb ratio 8 sugars reasonably well controlled, no need for Lantus at this time daughter says he has had issues with hypoglycemia in the past (5) Chronic heart failure: BNP very high but could be due to pneumonia will order echo, completed but results pending Lasix resumed, no signs of volume overload on exam (6) Hypothyroidism: continue Synthroid (7) GERD (gastroesophageal reflux disease): continue PPI (8) Delirium: hospital delirium, will scheduled Seroquel 25mg HS while here, happens at night he is still a little confused this morning frequent re orientation (9) DVT prophylaxis: Heparin SC Subjective patient breathing a little better today, coughing less lungs better on auscultation, no wheezing, still with rhonchi reviewed EKG, shows sinus tach at 104, no acute ischemic changes reviewed labs, WBC is up slightly at 14k, Cr and electrolytes stable updated daughter at the bedside patient not eating too well he had some delirium last night, aggressive and swinging at nurses will try some Seroquel this evening Review of Systems Review of Systems: All systems reviewed & are unremarkable except as noted in HPI & below Constitutional: + fever, + chills, + sweats, + fatigue and + weakness Respiratory: + cough, + dyspnea and + sputum production Cardiovascular: + dyspnea on exertion and + edema (trace, bilaterally); no aaliyah st pain and no chest pain at rest Musculoskeletal: + muscle weakness (in legs bilaterally) Physical Exam Constitutional: WD/WN, vitals as above Eyes: PERRL, conjunctivae normal, anicteric sclerae ENMT: external ear and nose normal, oropharynx normal Neck: trachea midline, no thyromegaly Respiratory: no respiratory distress Auscultation: + diminished lung sounds and + rhonchi (bilaterally); no crackles and no wheezes Cardiovascular: RRR, no murmur, no edema Rate/Rhythm: regular rhythm and + tachycardic Heart Sounds: no murmur Extremities: normal capillary refill; no edema Gastrointestinal (Abdomen): normal bowel sounds, soft, nontender, no hepatosplenomegaly Musculoskeletal: no cyanosis or clubbing, extremities motor strength 5/5 Skin: no rashes, warm and dry Neurologic: patellar DTR's 2+ bilat, sensation intact and PERRL, EOMI, accommodation nl, no face palsy, no dysarthria Psychiatric: Orientation: alert, oriented to person and cooperative; + not oriented to place and + not oriented to time Lymphatic: no cervical or axillary lymphadenopathy Results & Data Vital Signs (Past 12 Hours) Vital Signs Temp Pulse Resp BP Pulse Ox 11/20/18 07:57 37.0 C 109 H 18 122/69 96 11/19/18 22:58 36.6 C 113 H 18 135/80 93 Laboratory Results Laboratory Results - last 24 hr 11/19/18 11/19/18 11/19/18 11:18 11:18 11:18 WBC 7.83 RBC 3.43 L Hgb 10.2 L Hct 32.9 L MCV 95.9 MCH 29.7 MCHC 31.0 L RDW Std Deviation 52.4 H RDW Coeff of Trinh 15.0 H Plt Count 367 MPV 9.2 Immature Gran % (Auto) 0.6 Neut % (Auto) 88.1 Lymph % (Auto) 10.0 [place] % (Auto) 0.8 Eos % (Auto) 0.1 Baso % (Auto) 0.4 Immature Gran # (Auto) 0.05 H Neut # (Auto) 6.90 H Lymph # (Auto) 0.78 L [place] # (Auto) 0.06 L Eos # (Auto) 0.01 Baso # (Auto) 0.03 PT 12.1 H INR 1.2 H Sodium Potassium Chloride Carbon Dioxide Anion Gap BUN Creatinine 1.14 Est Cr Clr Drug Dosing 41.9 Est GFR ( Amer) 65.7 Est GFR (Non-Af Amer) 56.7 BUN/Creatinine Ratio Glucose POC Glucose Calcium 11/19/18 11/19/18 11/19/18 12:16 13:56 14:34 WBC RBC Hgb Hct MCV MCH MCHC RDW Std Deviation RDW Coeff of Trinh Plt Count MPV Immature Gran % (Auto) Neut % (Auto) Lymph % (Auto) [place] % (Auto) Eos % (Auto) Baso % (Auto) Immature Gran # (Auto) Neut # (Auto) Lymph # (Auto) [place] # (Auto) Eos # (Auto) Baso # (Auto) PT INR Sodium 141 Potassium 4.3 Chloride 98 Carbon Dioxide 39 H Anion Gap 4.0 BUN 33 H Creatinine 1.16 Est Cr Clr Drug Dosing 41.2 Est GFR ( Amer) 64.4 Est GFR (Non-Af Amer) 55.5 BUN/Creatinine Ratio 28.4 H Glucose 300 H POC Glucose 318 H* 252 H Calcium 8.4 L 11/19/18 11/19/18 11/20/18 16:46 20:29 07:28 WBC RBC Hgb Hct MCV MCH MCHC RDW Std Deviation RDW Coeff of Trinh Plt Count MPV Immature Gran % (Auto) Neut % (Auto) Lymph % (Auto) [place] % (Auto) Eos % (Auto) Baso % (Auto) Immature Gran # (Auto) Neut # (Auto) Lymph # (Auto) [place] # (Auto) Eos # (Auto) Baso # (Auto) PT INR Sodium Potassium Chloride Carbon Dioxide Anion Gap BUN Creatinine Est Cr Clr Drug Dosing Est GFR ( Amer) Est GFR (Non-Af Amer) BUN/Creatinine Ratio Glucose POC Glucose 107 H 222 H 214 H Calcium 11/20/18 11/20/18 08:26 08:26 WBC 14.38 H RBC 3.39 L Hgb 10.1 L Hct 32.0 L MCV 94.4 MCH 29.8 MCHC 31.6 L RDW Std Deviation 52.2 H RDW Coeff of Trinh 15.3 H Plt Count 391 MPV 9.8 Immature Gran % (Auto) 0.3 Neut % (Auto) 70.0 Lymph % (Auto) 17.2 [place] % (Auto) 12.4 Eos % (Auto) 0.0 Baso % (Auto) 0.1 Immature Gran # (Auto) 0.04 H Neut # (Auto) 10.07 H Lymph # (Auto) 2.47 [place] # (Auto) 1.78 H Eos # (Auto) 0.00 Baso # (Auto) 0.02 PT INR Sodium 141 Potassium 4.2 Chloride 97 L Carbon Dioxide 37 H Anion Gap 7.0 BUN 39 H Creatinine 1.26 Est Cr Clr Drug Dosing 37.9 Est GFR ( Amer) 58.2 Est GFR (Non-Af Amer) 50.2 BUN/Creatinine Ratio 30.7 H Glucose 215 H POC Glucose Calcium 8.5 Medications Administered Current Inpatient Medications Acetaminophen (Tylenol) 650 mg PO Q4H PRN PRN Reason: pain/fever Stop: 12/19/18 09:38 Albuterol (Duoneb) 3 ml NEB QIDR PRN PRN Reason: Dyspnea Stop: 12/19/18 10:59 Carvedilol (Coreg) 3.125 mg PO BID [facility] Stop: 12/19/18 20:59 Last Admin: 11/20/18 07:37 Dose: 3.125 mg Documented by: Furosemide (Lasix) 40 mg PO QAM [facility] Stop: 12/20/18 08:59 Last Admin: 11/20/18 07:55 Dose: 40 mg Documented by: Heparin Sodium (Porcine) (Heparin Sodium (Porcine)) 5,000 units SQ Q8 KELY Stop: 12/19/18 13:59 Last Admin: 11/20/18 06:07 Dose: 5,000 units Documented by: Levofloxacin/Dextrose (Levaquin/D5w) 750 mg in 150 mls @ 100 mls/hr IV Q48H [facility]; Protocol Stop: 11/28/18 08:59 Methylprednisolone 40 mg/ (Syringe) 0.64 mls @ 1.5 mls/min IV Q12 KELY Stop: 12/19/18 11:29 Last Admin: 11/20/18 07:37 Dose: 1.5 mls/min Documented by: Insulin Aspart (Novolog Flexpen) 0 units SC ACHS [facility] Stop: 12/19/18 11:29 Last Admin: 11/20/18 07:39 Dose: 6 units Documented by: Lactobacillus Acidophilus (Floranex) 1 tab PO BIDM [facility] Stop: 12/19/18 16:59 Last Admin: 11/20/18 07:37 Dose: 1 tab Documented by: Levothyroxine Sodium (Synthroid) 88 mcg PO DAILYBB [facility] Stop: 12/20/18 06:29 Last Admin: 11/20/18 06:07 Dose: 88 mcg Documented by: Ondansetron HCl (Zofran) 4 mg IV Q6H PRN PRN Reason: Nausea Stop: 12/19/18 09:38 Pantoprazole Sodium (Protonix) 40 mg PO DAILY [facility] Stop: 12/20/18 08:59 Last Admin: 11/20/18 07:37 Dose: 40 mg Documented by: Quetiapine Fumarate (Seroquel) 25 mg PO HS [facility] Stop: 12/20/18 20:59 PG Care Time/CCT Total # of Minutes Spent Total Time Spent with Patient: Total time spent is greater than 50% in coordination of care (as documented) at patient's floor/unit and/or counseling patient:
--- NOTE | 2018-11-20 13:47 | XRay Report ---
XR hip LT 2-3V w pelvis CLINICAL HISTORY: Left hip pain. Weakness. COMPARISON: CT of the abdomen and pelvis December 25, 2017. FINDINGS: Sacroiliac joints and symphysis pubis are intact. There is no acute fracture or suspicious osseous lesion within the pelvis or hips. Moderate left and mild right hip osteoarthritis is present . Moderate vascular calcification is present. IMPRESSION: 1. No acute fracture within the pelvis or hips. 2. Moderate left and mild right hip osteoarthritis. Electronically signed by: Carroll Coreas M.D. 11/20/2018 1:46 PM
[2018-11-20] MEDS ORDERED: HALOPERIDOL LACTATE 5 MG/ML 1 ML VIAL IM ONE (20:50)
[2018-11-20] MEDS: QUETIAPINE FUMARATE 25 MG TABLET PO SCH (22:04)
[2018-11-21] MEDS: HEPARIN SOD 5,000 UNIT/0.5 ML VIAL SQ SCH ×3 (05:51→20:35)
[2018-11-21] MEDS: LEVOTHYROXINE SODIUM 88 MCG TABLET PO SCH (05:51)
[2018-11-21 08:27] LABS: Creatinine Clr Calc Pharmacy 39.8 ml/min; Est GFR (African American) 61.8; Est GFR (Non-African American) 53.3
[2018-11-21] MEDS ORDERED: LEVOFLOXACIN/D5W 750 MG/150 ML BAG IV SCH (09:00)
[2018-11-21] MEDS: LACTOBACILLUS ACIDOPHILUS (FLORANEX) TAB PO SCH ×2 (09:34→16:56)
[2018-11-21] MEDS: INSULIN ASPART 100 UNITS/ML 3 ML PEN SC SCH ×4 (09:34→20:35)
[2018-11-21] MEDS: CARVEDILOL 3.125 MG TAB PO SCH ×2 (09:35→20:35)
[2018-11-21] MEDS: FUROSEMIDE 40 MG TAB PO SCH (09:36)
[2018-11-21] MEDS: PANTOprazole 40 MG TAB PO SCH (09:37)
[2018-11-21] MEDS: methylPREDNISolone 40 MG in SYRINGE 0 ML IV SCH (09:37)
--- NOTE | 2018-11-21 11:03 | Hospitalist Progress Note ---
Date of Service November 21, 2018 Assessment & Plan (1) Multifocal pneumonia: progressive cough for days, getting worse had subjective fever/chills at home, WBC was 10k at [place] CXR with multifocal pneumonia, more prominent on right side no distress, vitals stable, WBC up to 14k yesterday but likely due to steroids will continue on Levaquin 750mg IV q48, complete 7 days total change to PO Levaquin on 11/23 blood cultures drawn at [place], no growth no signs of sepsis lungs better today, no wheezing, still with rhonchi bilaterally, cough is strong will ask pulmonary to perform percussion therapy, flutter valve to improve cough productivity (2) COPD (chronic obstructive pulmonary disease): with mild exacerbation, wheezing on exam at the time of admission no wheezing for two days now, no distress treated with Solu Medrol 40 IV Q12, change to Prednisone 20mg daily, complete just three more days Duoneb QID PRN for shortness of breath, wheezing (3) Chronic respiratory failure with hypoxia: chronically on 2L NC, has been on this for a few weeks no increased work of breathing, no distress despite the pneumonia and COPD (4) DM type 2 (diabetes mellitus, type 2): will hold oral agents and use Novolog SS, correction factor 20 and carb ratio 8 sugars reasonably well controlled, no need for Lantus at this time daughter says he has had issues with hypoglycemia in the past (5) Chronic heart failure: chronic systolic HF, EF is 20% on echo no signs of volume overload continue home dose of Lasix (6) Hypothyroidism: continue Synthroid (7) GERD (gastroesophageal reflux disease): continue PPI (8) Delirium: hospital delirium, improved with scheduled Seroquel 25mg HS frequent re orientation (9) DVT prophylaxis: Heparin SC Subjective patient sitting up in bed, feeling good, a little better each day still coughing but not much sputum production feels less short of breath, no fever or chills eating well reviewed echo results, EF is 15-20% which is chronic, same as 2017 reviewed hip x-ray results, no fractures seen, has some osteoarthritis updated patient's daughter in the room discussed plan for d/c to swing bed at [facility] for rehab, likely ready by Monday Review of Systems Review of Systems: All systems reviewed & are unremarkable except as noted in HPI & below Constitutional: + fatigue and + weakness; no fever, no chills and no sweats Respiratory: + cough, + dyspnea on exertion and + sputum production; no dyspnea and no hemoptysis Cardiovascular: no chest pain and no edema Gastrointestinal: no abdominal pain, no nausea, no vomiting, no constipation and no diarrhea/loose stools Physical Exam Constitutional: WD/WN, vitals as above Eyes: PERRL, conjunctivae normal, anicteric sclerae ENMT: external ear and nose normal, oropharynx normal Neck: trachea midline, no thyromegaly Respiratory: no respiratory distress Auscultation: + diminished lung sounds and + rhonchi (bilaterally); no crackles and no wheezes Cardiovascular: RRR, no murmur, no edema Rate/Rhythm: regular rhythm and + tachycardic Heart Sounds: no murmur Extremities: normal capillary refill; no edema Gastrointestinal (Abdomen): normal bowel sounds, soft, nontender, no hepatosplenomegaly Musculoskeletal: no cyanosis or clubbing, extremities motor strength 5/5 Skin: no rashes, warm and dry Neurologic: patellar DTR's 2+ bilat, sensation intact and PERRL, EOMI, accommodation nl, no face palsy, no dysarthria Psychiatric: A+Ox3, euthymic affect Orientation: alert, oriented to person and cooperative; + not oriented to place and + not oriented to time Lymphatic: no cervical or axillary lymphadenopathy Results & Data Vital Signs (Past 12 Hours) Vital Signs Temp Pulse Resp BP Pulse Ox 11/21/18 06:53 36.4 C L 97 H 18 128/71 93 Laboratory Results Laboratory Results - last 24 hr 11/20/18 11/20/18 11/20/18 12:12 16:16 22:06 Creatinine Est Cr Clr Drug Dosing Est GFR ( Amer) Est GFR (Non-Af Amer) POC Glucose 231 H 194 H 212 H 11/21/18 11/21/18 07:12 07:31 Creatinine 1.20 Est Cr Clr Drug Dosing 39.8 Est GFR ( Amer) 61.8 Est GFR (Non-Af Amer) 53.3 POC Glucose 147 H Diagnostic Findings XR hip LT 2-3V w pelvis IMPRESSION: 1. No acute fracture within the pelvis or hips. 2. Moderate left and mild right hip osteoarthritis. Medications Administered Current Inpatient Medications Acetaminophen (Tylenol) 650 mg PO Q4H PRN PRN Reason: pain/fever Stop: 12/19/18 09:38 Albuterol (Duoneb) 3 ml NEB QIDR PRN PRN Reason: Dyspnea Stop: 12/19/18 10:59 Carvedilol (Coreg) 3.125 mg PO BID [facility] Stop: 12/19/18 20:59 Last Admin: 11/21/18 09:35 Dose: 3.125 mg Documented by: Furosemide (Lasix) 40 mg PO QAM [facility] Stop: 12/20/18 08:59 Last Admin: 11/21/18 09:36 Dose: 40 mg Documented by: Heparin Sodium (Porcine) (Heparin Sodium (Porcine)) 5,000 units SQ Q8 [facility] Stop: 12/19/18 13:59 Last Admin: 11/21/18 05:51 Dose: Not Given Documented by: Insulin Aspart (Novolog Flexpen) 0 units SC ACHS [facility] Stop: 12/19/18 11:29 Last Admin: 11/21/18 09:34 Dose: 2 units Documented by: Lactobacillus Acidophilus (Floranex) 1 tab PO BIDM [facility] Stop: 12/19/18 16:59 Last Admin: 11/21/18 09:34 Dose: Not Given Documented by: Levofloxacin (Levaquin) 750 mg PO Q2D@1100 [facility] Stop: 11/30/18 10:59 Levothyroxine Sodium (Synthroid) 88 mcg PO DAILYBB [facility] Stop: 12/20/18 06:29 Last Admin: 11/21/18 05:51 Dose: Not Given Documented by: Ondansetron HCl (Zofran) 4 mg IV Q6H PRN PRN Reason: Nausea Stop: 12/19/18 09:38 Pantoprazole Sodium (Protonix) 40 mg PO DAILY [facility] Stop: 12/20/18 08:59 Last Admin: 11/21/18 09:37 Dose: 40 mg Documented by: Prednisone (Prednisone) 20 mg PO QAM [facility] Stop: 11/24/18 09:01 Quetiapine Fumarate (Seroquel) 25 mg PO HS [facility] Stop: 12/20/18 20:59 Last Admin: 11/20/18 22:04 Dose: Not Given Documented by: PG Care Time/CCT Total # of Minutes Spent Total Time Spent with Patient: Total time spent is greater than 50% in coordination of care (as documented) at patient's floor/unit and/or counseling patient:
[2018-11-21] MEDS: ACETAMINOPHEN 325 MG TAB PO PRN (19:47)
[2018-11-21] MEDS: QUETIAPINE FUMARATE 25 MG TABLET PO SCH (20:36)
[2018-11-22] MEDS: LEVOTHYROXINE SODIUM 88 MCG TABLET PO SCH (05:28)
[2018-11-22] MEDS: HEPARIN SOD 5,000 UNIT/0.5 ML VIAL SQ SCH ×4 (05:28→22:18)
[2018-11-22 06:52] LABS: Basophils # (auto) 0.01 K/uL (0-0.2); Basophils % (auto) 0.1 %; Eosinophils # (auto) 0.02 K/uL (0-0.5); Eosinophils % (auto) 0.2 %; Hemoglobin 10.5 g/dL (14.0-18.0); Immature Granulocytes # (auto) 0.05 K/uL (0.00-0.02); Immature Granulocytes % (auto) 0.4 %; Lymphocytes # (auto) 2.41 K/uL (1.2-3.4); Mean Corpuscular Volume 97.2 fL (80-100); Mean Platelet Volume 10.4 fL (7.4-10.4); Monocytes # (auto) 1.73 K/uL (0.11-0.59); Neutrophils # (auto) 7.28 K/uL (1.4-6.5); Neutrophils % (auto) 63.3 %; Platelet Count 327 K/uL (130-400); RDW Coefficient of Variation 15.4 % (11.5-14.5); RDW Standard Deviation 54.9 fL (36.4-46.3)
[2018-11-22 07:30] LABS: BUN Creatinine Ratio 30.1 (10-20); Calcium 8.3 mg/dl (8.5-10.1); Creatinine Clr Calc Pharmacy 42.6 ml/min; Est GFR (African American) 67.1; Est GFR (Non-African American) 57.9; Potassium 3.9 mmol/L (3.5-5.1)
[2018-11-22] MEDS: PANTOprazole 40 MG TAB PO SCH (08:08)
[2018-11-22] MEDS: predniSONE 20 MG TAB PO SCH (08:09)
[2018-11-22] MEDS: LACTOBACILLUS ACIDOPHILUS (FLORANEX) TAB PO SCH ×2 (08:09→17:37)
[2018-11-22] MEDS: FUROSEMIDE 40 MG TAB PO SCH (08:09)
[2018-11-22] MEDS: CARVEDILOL 3.125 MG TAB PO SCH ×2 (08:09→21:13)
[2018-11-22] MEDS: INSULIN ASPART 100 UNITS/ML 3 ML PEN SC SCH ×7 (08:10→22:23)
--- NOTE | 2018-11-22 11:21 | Hospitalist Progress Note ---
Date of Service November 22, 2018 Assessment & Plan (1) Multifocal pneumonia: progressive cough for days, getting worse had subjective fever/chills at home, WBC was 10k at [place] CXR with multifocal pneumonia, more prominent on right side no distress, vitals stable, WBC down to 11k today will continue on Levaquin 750mg IV q48, complete 7 days total change to PO Levaquin on 11/23 blood cultures drawn at [place], no growth no signs of sepsis lungs better today, no wheezing, less rhonchi continue to use flutter valve, can use after discharge plan to d/c to [place] swing bed tomorrow for rehab (2) COPD (chronic obstructive pulmonary disease): with mild exacerbation, wheezing on exam at the time of admission no wheezing for two days now, no distress treated with Solu Medrol 40 IV Q12, changed to Prednisone 20mg daily today, complete just two more days Duoneb QID PRN for shortness of breath, wheezing (3) Chronic respiratory failure with hypoxia: chronically on 2L NC, has been on this for a few weeks no increased work of breathing, no distress despite the pneumonia and COPD (4) DM type 2 (diabetes mellitus, type 2): will hold oral agents and use Novolog SS, correction factor 20 and carb ratio 8 sugars reasonably well controlled, no need for Lantus at this time daughter says he has had issues with hypoglycemia in the past (5) Chronic heart failure: chronic systolic HF, EF is 20% on echo no signs of volume overload continue home dose of Lasix (6) Hypothyroidism: continue Synthroid (7) GERD (gastroesophageal reflux disease): continue PPI (8) Delirium: hospital delirium, refusing Seroquel overall mental status improved so will d/c the Seroquel continue to orient patient (9) DVT prophylaxis: Heparin SC Plan: d/c tomorrow Subjective patient feels great today, sitting up in chair did not sleep great, on and off, says he gets interrupted a lot no fever or chills, still coughing but not much sputum production vitals stable, reviewed labs, WBC minimally elevated but stable, Cr normal and electrolytes stable updated daughter at the bedside discussed with CM, he will be ready for d/c tomorrow if [place] has a swing bed Review of Systems Review of Systems: All systems reviewed & are unremarkable except as noted in HPI & below Constitutional: + weakness; no fever and no fatigue Respiratory: + cough and + sputum production; no dyspnea and no dyspnea on exertion Cardiovascular: no chest pain and no edema Gastrointestinal: no abdominal pain, no nausea, no vomiting, no constipation and no diarrhea/loose stools Physical Exam Constitutional: WD/WN, vitals as above Eyes: PERRL, conjunctivae normal, anicteric sclerae ENMT: external ear and nose normal, oropharynx normal Neck: trachea midline, no thyromegaly Respiratory: no respiratory distress Auscultation: + diminished lung sounds and + rhonchi (bilaterally, but overall decreased); no crackles and no wheezes Cardiovascular: RRR, no murmur, no edema Rate/Rhythm: regular rhythm and + tachycardic Heart Sounds: no murmur Extremities: normal capillary refill; no edema Gastrointestinal (Abdomen): normal bowel sounds, soft, nontender, no hepatosplenomegaly Musculoskeletal: no cyanosis or clubbing, extremities motor strength 5/5 Skin: no rashes, warm and dry Neurologic: patellar DTR's 2+ bilat, sensation intact and PERRL, EOMI, accommodation nl, no face palsy, no dysarthria Psychiatric: A+Ox3, euthymic affect Orientation: alert, oriented to person and cooperative; + not oriented to place and + not oriented to time Lymphatic: no cervical or axillary lymphadenopathy Results & Data Vital Signs (Past 12 Hours) Vital Signs Temp Pulse Resp BP Pulse Ox 11/22/18 07:37 36.5 C 88 22 127/75 92 11/21/18 23:34 36.4 C L 89 20 121/72 95 Laboratory Results Laboratory Results - last 24 hr 11/21/18 11/21/18 11/21/18 11:35 16:36 20:28 WBC RBC Hgb Hct MCV MCH MCHC RDW Std Deviation RDW Coeff of Trinh Plt Count MPV Immature Gran % (Auto) Neut % (Auto) Lymph % (Auto) [place] % (Auto) Eos % (Auto) Baso % (Auto) Immature Gran # (Auto) Neut # (Auto) Lymph # (Auto) [place] # (Auto) Eos # (Auto) Baso # (Auto) Sodium Potassium Chloride Carbon Dioxide Anion Gap BUN Creatinine Est Cr Clr Drug Dosing Est GFR ( Amer) Est GFR (Non-Af Amer) BUN/Creatinine Ratio Glucose POC Glucose 192 H 113 H 166 H Calcium 11/22/18 11/22/18 11/22/18 06:12 06:12 07:17 WBC 11.50 H RBC 3.60 L Hgb 10.5 L Hct 35.0 L MCV 97.2 MCH 29.2 MCHC 30.0 L RDW Std Deviation 54.9 H RDW Coeff of Trinh 15.4 H Plt Count 327 MPV 10.4 Immature Gran % (Auto) 0.4 Neut % (Auto) 63.3 Lymph % (Auto) 21.0 [place] % (Auto) 15.0 Eos % (Auto) 0.2 Baso % (Auto) 0.1 Immature Gran # (Auto) 0.05 H Neut # (Auto) 7.28 H Lymph # (Auto) 2.41 [place] # (Auto) 1.73 H Eos # (Auto) 0.02 Baso # (Auto) 0.01 Sodium 142 Potassium 3.9 Chloride 100 Carbon Dioxide 39 H Anion Gap 4.0 BUN 34 H Creatinine 1.12 Est Cr Clr Drug Dosing 42.6 Est GFR ( Amer) 67.1 Est GFR (Non-Af Amer) 57.9 BUN/Creatinine Ratio 30.1 H Glucose 145 H POC Glucose 130 H Calcium 8.3 L Medications Administered Current Inpatient Medications Acetaminophen (Tylenol) 650 mg PO Q4H PRN PRN Reason: pain/fever Stop: 12/19/18 09:38 Last Admin: 11/21/18 19:47 Dose: 325 mg Documented by: Albuterol (Duoneb) 3 ml NEB QIDR PRN PRN Reason: Dyspnea Stop: 12/19/18 10:59 Carvedilol (Coreg) 3.125 mg PO BID [facility] Stop: 12/19/18 20:59 Last Admin: 11/22/18 08:09 Dose: 3.125 mg Documented by: Furosemide (Lasix) 40 mg PO QAM [facility] Stop: 12/20/18 08:59 Last Admin: 11/22/18 08:09 Dose: 40 mg Documented by: Heparin Sodium (Porcine) (Heparin Sodium (Porcine)) 5,000 units SQ Q8 [facility] Stop: 12/19/18 13:59 Last Admin: 11/22/18 05:28 Dose: Not Given Documented by: Insulin Aspart (Novolog Flexpen) 0 units SC ACHS [facility] Stop: 12/19/18 11:29 Last Admin: 11/22/18 08:10 Dose: 6 units Documented by: Lactobacillus Acidophilus (Floranex) 1 tab PO BIDM [facility] Stop: 12/19/18 16:59 Last Admin: 11/22/18 08:09 Dose: 1 tab Documented by: Levofloxacin (Levaquin) 750 mg PO Q2D@1100 [facility] Stop: 11/30/18 10:59 Levothyroxine Sodium (Synthroid) 88 mcg PO DAILYBB [facility] Stop: 12/20/18 06:29 Last Admin: 11/22/18 05:28 Dose: 88 mcg Documented by: Ondansetron HCl (Zofran) 4 mg IV Q6H PRN PRN Reason: Nausea Stop: 12/19/18 09:38 Pantoprazole Sodium (Protonix) 40 mg PO DAILY [facility] Stop: 12/20/18 08:59 Last Admin: 11/22/18 08:08 Dose: 40 mg Documented by: Prednisone (Prednisone) 20 mg PO QAM [facility] Stop: 11/24/18 09:01 Last Admin: 11/22/18 08:09 Dose: 20 mg Documented by: Quetiapine Fumarate (Seroquel) 25 mg PO HS [facility] Stop: 12/20/18 20:59 Last Admin: 11/21/18 20:36 Dose: Not Given Documented by: PG Care Time/CCT Total # of Minutes Spent Total Time Spent with Patient: Total time spent is greater than 50% in coordination of care (as documented) at patient's floor/unit and/or counseling patient:
[2018-11-22] MEDS: ACETAMINOPHEN 325 MG TAB PO PRN (21:13)
[2018-11-23] MEDS: ACETAMINOPHEN 325 MG TAB PO PRN (00:15)
[2018-11-23] MEDS: LEVOTHYROXINE SODIUM 88 MCG TABLET PO SCH (05:51)
[2018-11-23] MEDS: HEPARIN SOD 5,000 UNIT/0.5 ML VIAL SQ SCH (05:51)
[2018-11-23] MEDS: predniSONE 20 MG TAB PO SCH (09:05)
[2018-11-23] MEDS: PANTOprazole 40 MG TAB PO SCH (09:05)
[2018-11-23] MEDS: FUROSEMIDE 40 MG TAB PO SCH (09:06)
[2018-11-23] MEDS: LACTOBACILLUS ACIDOPHILUS (FLORANEX) TAB PO SCH (09:06)
[2018-11-23] MEDS: CARVEDILOL 3.125 MG TAB PO SCH (09:07)
[2018-11-23] MEDS: INSULIN ASPART 100 UNITS/ML 3 ML PEN SC SCH (09:09)
--- NOTE | 2018-11-23 09:25 | Discharge Summary ---
Date of Service November 23, 2018 Admission HPI Per Admitting Provider 88 yo male with history of DM type II, chronic heart failure, HTN, COPD, Hypothyroidism and recent history of falls the past 6 months presents to [facility] from [place] ED after presenting with pneumonia. History is somewhat difficult to obtain because the patient is hard of hearing and his memory has some gaps in it, tends to jump from topic to topic. He reports that he was hospitalized in April 2018 for 9 days and since that time he has had several stays in rehab. He has been in a SNF in [place], two or three times based on his memory. He recently returned to living at home. He says he was feeling ill for the past few days. Progressive cough with some sputum production, does not know the color, has not seen blood. He feels a little more short of breath. He has experienced some fevers and chills and sweats at home. His appetite has been okay. No recent falls. He denies abdominal pain, vomiting, diarrhea. He will experience some swelling in ankles on and off again. No recent swelling. In the ED at [place] he was found to have infiltrates in right lung on chest x-ray. EKG was without ischemic changes. Troponin was minimally elevated. BNP was markedly elevated. WBC slightly high at 10k. BMP showed stable renal function and electrolytes. Discussed with patient's daughter at the bedside. She was able to give a little more detail. He had been coughing for almost a week, getting progressively worse, more sputum production. Last evening he got profoundly weak, she could not get him out of bed so she called the EMS. She says he was eating pretty well the past few days. He did not have any nausea/vomiting, diarrhea, chest pain to her knowledge. Admission Exam Per Admitting Provider Constitutional: WD/WN, vitals as above Eyes: PERRL, conjunctivae normal, anicteric sclerae ENMT: external ear and nose normal, oropharynx normal Neck: trachea midline, no thyromegaly Respiratory: Auscultation: + diminished lung sounds, + crackles (left lower lobe), + rhonchi (bilaterally) and + wheezes (bilaterally, more pronounced posteriorly) Cardiovascular: RRR, no murmur, no edema Gastrointestinal (Abdomen): normal bowel sounds, soft, nontender, no hepatosplenomegaly Musculoskeletal: no cyanosis or clubbing, extremities motor strength 5/5 Skin: no rashes, warm and dry Neurologic: patellar DTR's 2+ bilat, sensation intact and PERRL, EOMI, accommodation nl, no face palsy, no dysarthria Psychiatric: A+Ox3, euthymic affect Lymphatic: no cervical or axillary lymphadenopathy Principal Diagnosis Multifocal pneumonia Discharge Exam Constitutional WD/WN, vitals as above Eyes PERRL, conjunctivae normal, anicteric sclerae ENMT external ear and nose normal, oropharynx normal Neck trachea midline, no thyromegaly Respiratory no respiratory distress Auscultation: + diminished lung sounds and + rhonchi (bilaterally, but overall decreased); no crackles and no wheezes Cardiovascular RRR, no murmur, no edema Rate/Rhythm: regular rhythm and + tachycardic Heart Sounds: no murmur Extremities: normal capillary refill; no edema Gastrointestinal (Abdomen) normal bowel sounds, soft, nontender, no hepatosplenomegaly Musculoskeletal no cyanosis or clubbing, extremities motor strength 5/5 Skin no rashes, warm and dry Neurologic patellar DTR's 2+ bilat, sensation intact and PERRL, EOMI, accommodation nl, no face palsy, no dysarthria Psychiatric A+Ox3, euthymic affect Orientation: alert, oriented to person, oriented to place and cooperative; + not oriented to time Lymphatic no cervical or axillary lymphadenopathy Discharge Data Allergies Allergy/AdvReac Type Severity Reaction Status Date / Time No Known Allergies Allergy Unverified 04/14/17 19:25 Consultations 11/19/18 09:41 Consult Case Management - Discharge Planning Routine Hospital Course (1) Multifocal pneumonia: progressive cough for days, getting worse had subjective fever/chills at home, WBC was 10k at [place] CXR with multifocal pneumonia, more prominent on right side no distress, vitals stable, WBC returned to normal will continue on Levaquin 750mg IV q48, complete 7 days total change to PO Levaquin on 11/23 plan to take Levaquin on 11/25 and 11/27 at [place] blood cultures drawn at [place], no growth no signs of sepsis lungs better each day, no wheezing, less rhonchi continue to use flutter valve, can use after discharge plan to d/c to [place] swing bed for rehab (2) COPD (chronic obstructive pulmonary disease): with mild exacerbation, wheezing on exam at the time of admission no wheezing for three days now, no distress treated with Solu Medrol 40 IV Q12, changed to Prednisone 20mg daily today, complete just two more days after discharge Duoneb QID PRN for shortness of breath, wheezing (3) Chronic respiratory failure with hypoxia: chronically on 2L [place], has been on this for a few weeks no increased work of breathing, no distress despite the pneumonia and COPD (4) DM type 2 (diabetes mellitus, type 2): will hold oral agents and use Novolog SS, correction factor 20 and carb ratio 8 sugars reasonably well controlled, no need for Lantus at this time daughter says he has had issues with hypoglycemia in the past can resume Metformin and glipizide on discharge (5) Chronic heart failure: chronic systolic HF, EF is 20% on echo no signs of volume overload continue home dose of Lasix, Coreg and lisinopril (6) Hypothyroidism: continue Synthroid (7) GERD (gastroesophageal reflux disease): continue PPI (8) Delirium: hospital delirium, refusing Seroquel overall mental status improved so will d/c the Seroquel continue to orient patient (9) DVT prophylaxis: Heparin SC Total Time Total Time Spent Total Time Spent (In Minutes): 32 minutes Total Time Includes: Examination of the Patient, Discharge Planning, Medication Reconciliation and Other (talking with family) Discharge Plan Discharge Items Patient Disposition: Transfer Inpatient Rehab Fac Reason For Visit: PNEUMONIA Discharge Diagnosis: Pneumonia Chronic systolic heart failure Chronic hypoxia Condition: Good Discharge Goals: Improve disease control and Improve function Activity: Resume your previous activity Non-emergency contact: Primary Care Provider Call non-emergency contact if: you have any medication questions, your symptoms worsen and you have a fever Follow-up/Referrals: Parminder Nava MD [Primary Care Provider] - Diet: Heart Healthy Addtl Provider Instructions: Medications: - LEVOFLOXACIN: 750MG every other day for two more doses, next dose due on 11/25 and last dose on 11/27 - PREDNISONE: 20mg daily for two more days, next dose due tomorrow morning Pneumonia: responded well to Levaquin, Prednisone and nebulizers bringing up a little more sputum past few days please continue to use flutter valve twice a day, he will bring with him, recommend having respiratory therapy see him if possible giving nebulizers PRN here in hospital, does not need them scheduled afebrile, vitals stable COPD with mild exacerbation: some wheezing on admission, resolved quickly with Solu Medrol tapered to Prednisone, just needs 2 more days of treatment, no need for long taper as treatment was just one week Chronic systolic heart failure, EF is 15-20% he has been euvolemic here on Lasix 40mg daily which is his home dose continue on low dose Coreg and Lisinopril He is weak and deconditioned, needs rehab at [place] FOLLOW UP - recommend follow up with Dr. Nava in 7-10 days Prescriptions: New prednisone 20 mg Tablet 20 mg PO QAM 2 Days Qty: 2 RF: 0 levofloxacin 750 mg Tablet 750 mg PO Q2D@1100 3 Days Qty: 2 RF: 0 Continued Glipizide 10 MG tablet 10 mg PO BIDM Qty: 0 RF: 0 Metformin HCl 500 MG tablet 500 mg PO BIDM Qty: 0 RF: 0 Lisinopril 2.5 MG tablet 2.5 mg PO QAM Qty: 0 RF: 0 Acetaminophen Tab (TYLENOL) 325 MG tablet 650 mg PO Q4H PRN (Reason: Pain or Fever) Qty: 0 RF: 0 IPRATROPIUM-ALBUTEROL (DUONEB) 3 ML NEBULIZR-SOLN 1 treatment Inhalation QID PRN (Reason: Shortness of Breath) Qty: 0 RF: 0 LACTOBACILLUS (FLORANEX) 1 TAB tablet 1 tab PO BIDM Qty: 0 RF: 0 Carvedilol 3.125 MG tablet 3.125 mg PO BID Qty: 0 RF: 0 Furosemide 40 MG tablet 40 mg PO QAM Qty: 0 RF: 0 LEVOTHYROXINE SODIUM 88 MCG tablet 1 tab PO DAILY Qty: 0 RF: 0 PANTOPRAZOLE (PROTONIX) 40 MG tablet 1 tab PO DAILY Qty: 0 RF: 0 Breo Ellipta 100-25 mcg/dose Blister With Device 25 inh inhalation DAILY RF: 0 Stand-Alone Forms: [facility] Discharge Orders: Discharge Order (Routine); Ordered 11/23/18 Ordered By: Mich Mansfield Skilled Items Patient informed of condition?: Yes DNR: Yes Discharge Level of Care: Acute rehab Communicable Disease: No Admission Data Admit Date/Time: 11/19/18 09:21 Attending Provider: Mich Mansfield Admit Provider: Mich Mansfield Primary Care Provider: Parminder Nava Service: Medical Other Pending Studies at Discharge: No
[2018-11-23] MEDS ORDERED: levoFLOXacin 750 MG TAB PO SCH (11:00)
== END 2018-11-23 12:31 | DRG 194 ==
LOC: 2W 09:21